=== PATIENT | female | born 1990 | race Caucasian/White ===

== ENCOUNTER 2016-06-04 21:32 | Emergency (ER) | payer OTHER ==
[~2016-06-04] VITALS: Ht 160 cm; Wt 64.5 kg
[~2016-06-04 21:32] MED LIST: ACET500C5 PO; CEPH-443 PO; HYDR-3011 PO; PREN-39 PO
[2016-06-04 22:02] VITALS: Ht 160 cm; Wt 64.5 kg
[2016-06-04 23:34] LABS: ADD SCAN DIFF NO
[2016-06-04 23:37] LABS: BASOPHILS % 0.1 % (0.0-2.0); EOSINOPHILS # 0.1 10^3/ul (0.0-0.5); EOSINOPHILS % 0.9 % (0.0-7.0); HEMOGLOBIN 11.9 g/dl (12.0-16.0); LYMPHOCYTES # 1.8 10^3/ul (0.8-2.9); LYMPHOCYTES % 24.6 % (15.0-51.0); MEAN CORPUSCULAR HEMOGLOBIN 27.3 pg (29.0-33.0); MEAN CORPUSCULAR HGB CONC 31.3 g/dl (32.0-37.0); MEAN CORPUSCULAR VOLUME 87.2 fl (82.0-101.0); MEAN PLATELET VOLUME 10.6 fl (7.4-10.4); MONOCYTE # 0.5 10^3/ul (0.3-0.9); MONOCYTES % 6.9 % (0.0-11.0); NEUTROPHILS % 67.2 % (39.0-77.0); PLATELET COUNT 208 10^3/UL (140-415); RED BLOOD COUNT 4.36 10^6/ul (4.20-5.40); RED CELL DISTRIBUTION WIDTH 13.8 % (11.5-14.5); WHITE BLOOD COUNT 7.4 10^3/ul (4.8-10.8)
--- NOTE | 2016-06-05 00:11 | RADRPT ---
PROCEDURE: US OB. CLINICAL INDICATION: Vaginal bleeding. TECHNIQUE: Transabdominal and transvaginal views of the pelvis are available for review. COMPARISON: No relevant prior studies are available for comparison. FINDINGS: Uterus: Normal in contour, echogenicity and size without myometrial mass. Endometrial cavity: An intrauterine gestational sac and yolk sac are demonstrated but there is no f etal pole. The gestational sac is estimated at 1.03 cm corresponding to an age of 5 weeks 5 days. Crescentic hypoechoic area adjacent to the gestational sac is measured at 1.3 x 0.9 x 0.6 cm on the transvaginal images consistent with a subchorionic hemorrhage. Right ovary/adnexa: Ovarian size is normal measured at 3.7 x 2.2 x 2 cm. No ovarian or adnexal mas s lesion is seen. Left ovary/adnexa: The ovary is not visualized. Cul-de-sac: There is no free fluid. RPTAT:HJJR IMPRESSION: 1. Intrauterine gestational sac and yolk sac at an estimated gestational age of 5 weeks 5 days. A s no pole is visible, follow-up evaluation with serial serum beta HCG levels and ultrasound is recommended. 2. Subchorionic hemorrhage is estimated at 1.3 x 0.9 x 0.6 cm. 3. Sonographically normal right ovary, the left ovary is not visualized. Physician Gopal Date Time Electronically viewed and signed by Physician Gopal on 06/05/2016 00:11 JR/
[2016-06-05 00:49] LABS: ADD UMIC NO; URINE BILIRUBIN (Dip) NEGATIVE (NEGATIVE); URINE BLOOD (Dip) NEGATIVE (NEGATIVE); URINE COLOR LT. YELLOW (YELLOW); URINE GLUCOSE (Dip) NEGATIVE (NEGATIVE); URINE KETONES (Dip) 15 (NEGATIVE); URINE LEUKOCYTE ESTERASE (Dip) NEGATIVE (NEGATIVE); URINE NITRITE (Dip) NEGATIVE (NEGATIVE); URINE TOTAL PROTEIN (Dip) NEGATIVE (NEGATIVE); URINE UROBILINOGEN (Dip) 1.0 E.U./dL (0.1-1.0)
[2016-06-05 01:05] VITALS: BP 107/64; PULSE 72; RESP 16; TEMP 98.8
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
== END 2016-06-05 01:05 | disposition home or self-care (01) ==
LOC: FTE 21:32
DX: O20.9 Hemorrhage in early pregnancy, unspecified (principal); O20.0 Threatened abortion; Z3A.01 Less than 8 weeks gestation of pregnancy
CPT/HCPCS: 76801; 76817; 81003; 84702; 85025; 86900; 86901; Z7502

== ENCOUNTER 2016-10-13 21:33 | Outpatient (CLI) | payer OTHER ==
[~2016-10-13] VITALS: Ht 154.9 cm; Wt 62.8 kg
[2016-10-13 22:04] VITALS: Ht 154.9 cm; Wt 62.8 kg
[2016-10-13 22:31] LABS: BASOPHILS % 0.2 % (0.0-2.0); EOSINOPHILS % 0.6 % (0.0-7.0); HEMATOCRIT 32.8 % (37.0-47.0); HEMOGLOBIN 10.8 g/dl (12.0-16.0); LYMPHOCYTES % 16.3 % (15.0-51.0); MEAN CORPUSCULAR HEMOGLOBIN 28.6 pg (29.0-33.0); MEAN CORPUSCULAR HGB CONC 32.9 g/dl (32.0-37.0); MEAN PLATELET VOLUME 10.6 fl (7.4-10.4); MONOCYTE # 0.4 10^3/ul (0.3-0.9); MONOCYTES % 5.5 % (0.0-11.0); NEUTROPHIL # 4.9 10^3/ul (1.6-7.5); NEUTROPHILS % 77.2 % (39.0-77.0); PLATELET COUNT 173 10^3/UL (140-415); RED BLOOD COUNT 3.77 10^6/ul (4.20-5.40); RED CELL DISTRIBUTION WIDTH 14.3 % (11.5-14.5); WHITE BLOOD COUNT 6.4 10^3/ul (4.8-10.8)
[2016-10-13] MEDS ORDERED: FERR325C PO (22:36)
[2016-10-13 22:37] LABS: ADD UMIC YES; UR ASCORBIC ACID 40 mg/dL (NEGATIVE); UR BILIRUBIN (Dip) NEGATIVE (NEGATIVE); UR BLOOD (Dip) 3+ mg/dL (NEGATIVE); UR CLARITY CLOUDY (CLEAR); UR COLOR YELLOW (YELLOW); UR GLUCOSE (Dip) NEGATIVE (NEGATIVE); UR KETONES (Dip) NEGATIVE (NEGATIVE); UR LEUKOCYTE ESTERASE (Dip) 3+ Leu/ul (NEGATIVE); UR MUCUS FEW /HPF (NONE SEEN); UR NITRITE (Dip) NEGATIVE (NEGATIVE); UR RBC > 182 /HPF (0-5); UR SPECIFIC GRAVITY (Dip) 1.021 (1.003-1.030); UR SQUAMOUS EPITHELIAL CELL MODERATE /HPF (FEW); UR TOTAL PROTEIN (Dip) NEGATIVE (NEGATIVE); UR UROBILINOGEN (Dip) NEGATIVE (NEGATIVE)
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
--- NOTE | 2016-10-14 00:02 | TRIAGE ---
OB Triage Datetime Report Generated by CPN: 10/14/2016 00:02 Datetime: 10/13/2016 23:19 Vaginal Exam Dilatation (cms): 0.0 Effacement (%): 0 Station: -4 Exam By: DR. ARDALAN Datetime: 10/13/2016 23:00 Pain Assessment Pain Assessment Comments: PT. APPEARS COMFORTABLE, SITTING IN BED ON CELLPHONE Datetime: 10/13/2016 22:42 Heart Rate Monitor Mode: External US Comments: MOVEMENT AUDIBLE Datetime: 10/13/2016 22:06 EGA: 24.3 Datetime: 10/13/2016 21:39 Assessment Type: Triage Time of Arrival: 10/13/2016 21:25 Arrived By: Wheelchair Arrived From: Home Chief Complaint: VAG BLEEDING POST BIOPSY FOR HPV Movement: Present Contractions: Denies/Absent Rupture of Membranes: Denies Vaginal Bleeding: Small Vaginal Discharge: Present Recent Sexual Intercouse: Denies Abdominal Trauma: Not Applicable Patient Complaints: Pain on Urination Time Provider Notified: 10/14/2016 23:05 Provider Notified: JACKSON Initial Plan: EFM, U/S, CALL OB Maternal Assessment Level of Consciousness: Fully Conscious Headache: Denies Blurred Vision: No Respiratory Effort: Unlabored; Regular Rhythm; Equal Expansion Nausea/Vomiting: Denies RUQ Epigastric Pain: Denies Facial Edema: None Fall Risk Assessment History of Falling: (0) No Secondary Diagnosis: (0) No Ambulatory Aid: (0) Bedrest/Nurse Assist IV Therapy: (0) No Gait: (0) Normal/Bedrest/Immobile Mental Status: (0) Oriented to Own Ability Fall Score: 0 Fall Risk Score Definition: No Risk: No action required
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
== END 2016-10-13 23:58 | disposition home or self-care (01) ==
LOC: OBT 21:33 → L-D 21:36 → OBT 23:58
PROVIDERS: ATTEND Obstetrics & Gynecology Obstetrics
DX: O26.892 Other specified pregnancy related conditions, second trimester (principal); Z3A.26 26 weeks gestation of pregnancy; R10.2 Pelvic and perineal pain; L29.9 Pruritus, unspecified; N89.8 Other specified noninflammatory disorders of vagina
CPT/HCPCS: 76815; 81001; 85025; 86850; 86900; 86901; 87086; Z7500; G0463

== ENCOUNTER 2016-11-08 21:54 | Outpatient (CLI) | payer OTHER ==
[~2016-11-08] VITALS: Ht 147.3 cm; Wt 64.5 kg
[~2016-11-08 21:54] MED LIST changes: -ACET500C5 PO; -CEPH-443 PO; +FERR325C PO; -HYDR-3011 PO
[2016-11-08 22:59] VITALS: BP 102/58; PULSE 76; RESP 16; Ht 147.3 cm; Wt 64.5 kg
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
--- NOTE | 2016-11-08 23:42 | RADRPT ---
PROCEDURE: US OB Limited for Estimated Weight. CLINICAL INDICATION: 26 years of age, female. Estimated weight . labor. TECHNIQUE: Multiple sonographic images of the pelvis were obtained. Transabdominal imaging only w as performed. The images were reviewed on a PACS workstation. Image quality: Satisfactory. COMPARISON: No prior studies are available for comparison. FINDINGS: Luciano : Number of fetuses: 1 GENERAL EVALUATION: Cardiac activity: Present. FHR 139 bpm Presentation: Cephalic. Placenta: Placenta site: Anterior.. No evidence of placental previa. Placental grade 1 Cervix (transabdominal): Not evaluated DATING: Clinical MIKE: 28 weeks 1 day EGA based on MIKE: January 30, 2017 BIOMETRY: BPD = 7.1 cm , 28 weeks 4 days HC = 25.7 cm , 28 weeks 0 days AC = 24 cm , 28 weeks 2 days FL = 5.2 cm , 27 weeks 5-day Composite sonographic age: 28 weeks 1 day plus or minus 2 weeks Estimated due date by ultrasound measurements: January 30, 2017 EFW 1172 grams, 35 percentile. ANATOMY: Not evaluated. IMPRESSION: 1. Single living fetus in cephalic presentation. 2. Clinical gestation age of 28 weeks 1 day and clinical MIKE January 30, 2017 are concordant with t he composite sonographic age that is also 28 weeks 1 day. 3. Estimated weight is 1172 grams that is at the 35 percentile for gestational age. 4. Anterior grade 1 placenta. RPTAT: HCTS Physician Geri Date Time Electronically viewed and signed by Physician Geri on 11/08/2016 23:42 CS/
--- NOTE | 2016-11-08 23:44 | RADRPT ---
PROCEDURE: OB ultrasound for biophysical profile CLINICAL INDICATION: of age, female. well being. labor. TECHNIQUE: Multiple sonographic images of the pelvis were obtained. Transabdominal view of the gr avid uterus are available for review. The images were reviewed on a PACS workstation. COMPARISON: None available. FINDINGS: breathing movement = 2/2 tone = 2/2 motion = 2/2 Amniotic fluid = 2/2 GILDA = 13 cm Single live intrauterine in cephalic presentation. heart rate measures 125 bpm. Anterior placenta, grade 1. IMPRESSION: 1. Single living fetus in cephalic presentation. 2. Biophysical profile = 8/8. 3. GILDA = 13 cm. 4. Anterior placenta grade 1. RPTAT: HCTS Physician Geri Date Time Electronically viewed and signed by Physician Geri on 11/08/2016 23:44 CS/
[2016-11-09 00:01] LABS: ADD UMIC YES; UR AMORPHOUS CRYSTAL FEW /HPF (NONE SEEN); UR ASCORBIC ACID NEGATIVE (NEGATIVE); UR BACTERIA FEW /HPF (NONE SEEN); UR BILIRUBIN (Dip) NEGATIVE (NEGATIVE); UR BLOOD (Dip) NEGATIVE (NEGATIVE); UR CLARITY SLIGHTLY CLOUDY (CLEAR); UR COLOR YELLOW (YELLOW); UR GLUCOSE (Dip) NEGATIVE (NEGATIVE); UR KETONES (Dip) NEGATIVE (NEGATIVE); UR LEUKOCYTE ESTERASE (Dip) 3+ Leu/ul (NEGATIVE); UR MUCUS MODERATE /HPF (NONE SEEN); UR NITRITE (Dip) NEGATIVE (NEGATIVE); UR RBC 5 /HPF (0-5); UR SPECIFIC GRAVITY (Dip) 1.025 (1.003-1.030); UR SQUAMOUS EPITHELIAL CELL FEW /HPF (FEW); UR TOTAL PROTEIN (Dip) 1+ mg/dl (NEGATIVE); UR UROBILINOGEN (Dip) 1+ mg/dL (NEGATIVE)
[2016-11-09] MEDS ORDERED: NITR-58 PO (00:39)
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
== END 2016-11-09 00:45 | disposition home or self-care (01) ==
LOC: OBT 21:54 → L-D 21:54 → OBT 11-09 00:45
PROVIDERS: ATTEND Obstetrics & Gynecology Gynecology
DX: O9A.212 Injury, poisoning and certain other consequences of external causes complicating pregnancy, second trimester (principal); T14.90 Injury, unspecified; W50.0XXA Accidental hit or strike by another person, initial encounter; Y92.410 Unspecified street and highway as the place of occurrence of the external cause; O47.02 False labor before 37 completed weeks of gestation, second trimester; Z3A.28 28 weeks gestation of pregnancy
CPT/HCPCS: 76815; 76818; 81001; Z7500; G0463

== ENCOUNTER 2017-01-23 06:05 | Outpatient (CLI) | payer OTHER ==
[~2017-01-23] VITALS: Ht 144.8 cm; Wt 66.8 kg
[~2017-01-23 06:05] MED LIST changes: +NITR-58 PO
[2017-01-23 06:59] VITALS: Ht 144.8 cm; Wt 66.8 kg
[2017-01-23 07:02] VITALS: BP 106/59; PULSE 88; RESP 18
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
== END 2017-01-23 12:00 | disposition home or self-care (01) ==
LOC: OBT 06:05 → L-D 06:06 → OBT 12:00
PROVIDERS: ATTEND Obstetrics & Gynecology
DX: O9A.213 Injury, poisoning and certain other consequences of external causes complicating pregnancy, third trimester (principal); S39.91XA Unspecified injury of abdomen, initial encounter; Y09 Assault by unspecified means; Z3A.39 39 weeks gestation of pregnancy
CPT/HCPCS: 76815; 76818; Z7500; G0463

== ENCOUNTER 2017-02-04 08:40 | Inpatient (IN) | payer OTHER ==
[~2017-02-04] VITALS: Ht 154.9 cm; Wt 66.9 kg
[2017-02-04 09:29] VITALS: Ht 154.9 cm; Wt 66.9 kg
[2017-02-04] MEDS ORDERED: OXYTOCIN 30 UNITS/LR 500 ML IV SCH ×3 (09:30→19:51)
[2017-02-04] MEDS ORDERED: OXYTOCIN 30 UNITS/LR 500 ML IV PRN ×2 (09:30→20:00)
[2017-02-04] MEDS ORDERED: METHYLERGONOVINE 0.2 MG INJ IM PRN ×2 (09:30→20:00)
[2017-02-04] MEDS ORDERED: AMPICILLIN 2 GM/NS (PMX) 100 ML IV ONE (09:30)
[2017-02-04] MEDS ORDERED: LIDOCAINE 1% (MPF) 30 ML INJ INJ PRN (09:30)
[2017-02-04] MEDS ORDERED: MISOPROSTOL 200 MCG TAB PR PRN ×2 (09:30→20:00)
[2017-02-04] MEDS ORDERED: BUTORPHANOL 2 MG INJ IV PRN (09:30)
[2017-02-04] MEDS ORDERED: IBUPROFEN 600 MG TAB PO PRN (09:30)
[2017-02-04] MEDS ORDERED: CARBOPROST 250 MCG INJ IM PRN ×2 (09:30→20:00)
[2017-02-04] MEDS: LACTATED RINGER'S 1,000 ML IV SCH ×2 (10:14→13:40)
[2017-02-04 10:16] VITALS: BP 106/59; PULSE 88; RESP 20
[2017-02-04 10:31] LABS: BASOPHILS % 0.1 % (0.0-2.0); EOSINOPHILS # 0.1 10^3/ul (0.0-0.5); EOSINOPHILS % 0.7 % (0.0-7.0); HEMATOCRIT 36.9 % (37.0-47.0); HEMOGLOBIN 12.3 g/dl (12.0-16.0); LYMPHOCYTES # 1.7 10^3/ul (0.8-2.9); LYMPHOCYTES % 18.8 % (15.0-51.0); MEAN CORPUSCULAR HEMOGLOBIN 28.3 pg (29.0-33.0); MEAN CORPUSCULAR HGB CONC 33.3 g/dl (32.0-37.0); MEAN CORPUSCULAR VOLUME 84.8 fl (82.0-101.0); MONOCYTE # 0.5 10^3/ul (0.3-0.9); MONOCYTES % 5.1 % (0.0-11.0); NEUTROPHIL # 6.7 10^3/ul (1.6-7.5); NEUTROPHILS % 75.1 % (39.0-77.0); PLATELET COUNT 195 10^3/UL (140-415); RED BLOOD COUNT 4.35 10^6/ul (4.20-5.40); RED CELL DISTRIBUTION WIDTH 14.4 % (11.5-14.5); WHITE BLOOD COUNT 8.9 10^3/ul (4.8-10.8)
[2017-02-04 10:50] LABS: INR 0.98; PROTIME 13.1 Sec (11.9-14.9)
[2017-02-04 10:51] LABS: PARTIAL THROMBOPLASTIN TIME 30.3 Sec (25.0-35.0)
[2017-02-04] MEDS: AMPICILLIN 1 GM/NS (PMX) 50 ML IV SCH ×2 (13:39→17:29)
[2017-02-04 14:53] LABS: BARBITURATES Negative (NEGATIVE); BENZODIAZEPINES Negative (NEGATIVE); CANNABINOIDS Negative (NEGATIVE); COCAINE Negative (NEGATIVE); OPIATES Negative (NEGATIVE)
--- NOTE | 2017-02-04 15:43 | RADRPT ---
PROCEDURE: US OB. CLINICAL INDICATION: Prostate TECHNIQUE: Multiple sonographic images of the pelvis were obtained. The images were reviewed on a PACS workstation. COMPARISON: 01/23/2017 FINDINGS: There is a single viable intrauterine gestation. Cardiac activity is present with 148 beats per min [place]. There is a cephalic presentation. Measurements were made in order to determine age. The results are as follows: BPD =9.34 cm HC =33.65 cm AC =46.23 cm FL =7.45 cm. Estimated gestational age of approximately 30 weeks 5 days. The estimated date of delivery is 02/13/2017. The EFW = 3000 733 g 49.3% . The placenta is anterior grade II. There is no evidence for an abruption There is a normal amount of amniotic fluid IMPRESSION: Single viable intrauterine gestation of approximately 38 weeks 5 days. The estimated date of delive ry is 02/13/2017 Based on the LMP, the estimated gestation is 40 weeks 5 days with a estimated date of delivery of . .Cuong Jean MD, Date Time Electronically viewed and signed by .Cuong Jean MD, on 02/04/2017 15:43 .W/
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
--- NOTE | 2017-02-04 16:50 | HP ---
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 Rubella: immune RPR/VDRL: Negative GBS Status: Negative HBsAG: Negative OB Admission Exam Vital Signs Vital Signs Vital Signs Date Time Temp Pulse Resp B/P Pulse Ox O2 Delivery O2 Flow Rate FiO2 02/04/17 10:16 98.3 88 20 106/59 Room Air Physical Exam HEENT: WNL Heart: Rhythm Normal Lungs: Clear, Equal Abdomen: WNL Extremities: Normal Reflexes: Normal Cervical Dilatation: 4cm Effacement: 50% Station: +2 Membranes: Intact Heart Rate: 130's Accelerations: Accelerations Present Decelerations: No Decelerations Intensity: Moderate Last 72 hours Lab Results CBC & BMP 02/04/17 10:07 OB Assessment/Plan Reason for admission: other (40 weeks 5 days admitted in in labor) Other plan: 26 years old SAB 1 EDC January 30, 2017 admitted to [facility] at 40 weeks and 5 days in labor pelvic examination on admission cervix 4 cm dilated vertex at -2 station 50 or 60% cervical effacement contraction 5-7 minutes may require augmentation VANIA REBOLLAR MD Feb 04, 2017 16:50
[2017-02-04] MEDS ORDERED: LACTATED RINGER'S 1,000 ML IV* SCH (19:51)
--- NOTE | 2017-02-04 19:51 | LDN ---
Date/Time of Note Date/Time of Note DATE: 02/04/17 TIME: 19:50 Delivery Summary Placenta Delivered: Spontaneously Episiotomy: No Perineal laceration: 0 Anesthesia type: None Estimated blood loss: 200 Sponge & Needle done & correct: Yes All needle counts correct: Yes Any foreign bodies felt in the: No Problems: Delivery Information Sex Sex: male Apgars 1 Minute: 9 5 Minute: 9 Suctioning Nose & mouth suctioned at tl: Yes Umbilical Cord Umbilical cord with: 3 Vessels Cord presentations: no nuchal cord Cord Blood was obtained: Yes Mother & Baby Disposition Disposition Mom & Baby to Maternity; Good: Yes AMARIILS OLMSTEAD Feb 04, 2017 19:51
[2017-02-04] MEDS ORDERED: HYDROCODONE/APAP (5/325) TAB PO PRN ×2 (20:00)
[2017-02-04] MEDS ORDERED: DIBUCAINE 1% 30 GM OINT PR PRN (20:00)
[2017-02-04] MEDS ORDERED: BENZOCAINE 20% 56 ML SPRAY TOP PRN (20:00)
[2017-02-04] MEDS ORDERED: LANOLIN 7 GM TUBE TOP PRN (20:00)
[2017-02-04] MEDS ORDERED: WITCH HAZEL/GLYCERIN PAD PR PRN (20:00)
[2017-02-04 22:20] VITALS: BP 98/56; PULSE 63; RESP 18
[2017-02-05 00:15] VITALS: BP 104/56; PULSE 67; RESP 18
[2017-02-05] MEDS: IBUPROFEN 600 MG TAB PO SCH ×5 (00:26→23:53)
[2017-02-05 04:15] VITALS: BP 96/65; PULSE 54; RESP 18
[2017-02-05 07:45] VITALS: BP 109/70; PULSE 66; RESP 19
[2017-02-05 09:10] LABS: BASOPHILS % 0.1 % (0.0-2.0); EOSINOPHILS % 0.3 % (0.0-7.0); HEMATOCRIT 33.4 % (37.0-47.0); LYMPHOCYTES # 1.7 10^3/ul (0.8-2.9); LYMPHOCYTES % 13.8 % (15.0-51.0); MEAN CORPUSCULAR HGB CONC 32.9 g/dl (32.0-37.0); MEAN PLATELET VOLUME 11.1 fl (7.4-10.4); MONOCYTE # 0.6 10^3/ul (0.3-0.9); MONOCYTES % 4.7 % (0.0-11.0); NEUTROPHIL # 10.1 10^3/ul (1.6-7.5); NEUTROPHILS % 80.8 % (39.0-77.0); PLATELET COUNT 173 10^3/UL (140-415); RED BLOOD COUNT 3.93 10^6/ul (4.20-5.40); RED CELL DISTRIBUTION WIDTH 14.2 % (11.5-14.5); WHITE BLOOD COUNT 12.5 10^3/ul (4.8-10.8)
--- NOTE | 2017-02-05 10:49 | QN ---
Documentation Comment Post normal vaginal delivery day 1 Afebrile vital signs are stable Abdomen soft uterus firm lochia normal extremities normal VANIA REBOLLAR MD Feb 05, 2017 10:49
[2017-02-05 12:00] VITALS: BP 94/51; PULSE 75; RESP 18
[2017-02-05 16:00] VITALS: BP 99/53; PULSE 69; RESP 16
[2017-02-05 19:45] VITALS: BP 108/60; PULSE 65; RESP 18
[2017-02-06 04:02] VITALS: BP 109/72; PULSE 76; RESP 18
[2017-02-06] MEDS: IBUPROFEN 600 MG TAB PO SCH ×2 (05:52→12:28)
[2017-02-06 08:00] VITALS: BP 106/74; PULSE 57; RESP 16
[2017-02-06] MEDS ORDERED: MEASLES,MUMPS,RUBELLA VACCINE INJ SC* ONE (09:00)
[2017-02-06] MEDS ORDERED: DIPHTH/TET/ACEL PERTUSS (ADULT) 0.5 ML VIAL IM* ONE (09:00)
[2017-02-06] MEDS ORDERED: VARICELLA VACCINE LIVE/PF 1,350 UNIT/0.5 ML ML SC* ONE (09:00)
--- NOTE | 2017-02-06 12:45 | PD.PPDC ---
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 Provider Information Physician Information Post normal vaginal delivery day 2 Diagnosis Final Diagnosis: day 2 Condition Patient Condition: Good Diet Diet: Resume Regular Diet Activity/Restrictions Activity: Normal Activity May Shower Restrictions: No Exercising No Lifting No Driving No Sexual Activity Nothing in the Vagina No [place] No Tampons, douche Follow-up Follow-up with Physician: 2, Week/Weeks Provider Information: instruction given recommended to make appointment to be seen at the clinic in 2 weeks Return to clinic for SHOWER MAID Instructions: Fever greater than 101 Chills Worsening abdominal pain Excessive Vaginal Bleeding More than 2 pads per hour Unable to tolerate diet Surgical Instructions: Incisional Drainage Incisional Redness VANIA REBOLLAR MD Feb 06, 2017 12:45
--- NOTE | 2017-02-06 12:50 | DS ---
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 Time spent on discharge: < 30 minutes VANIA REBOLLAR MD Feb 06, 2017 12:50
== END 2017-02-06 14:30 | disposition home or self-care (01) | DRG 775 ==
LOC: OBT 08:40 → L-D 08:41 → OBT 09:40 → L-D 09:41 → PP1 22:14
PROVIDERS: ADMIT Obstetrics & Gynecology; ATTEND Obstetrics & Gynecology
PROC: 10E0XZZ Delivery of Products of Conception, External Approach (ICD-10-PCS; principal; 2017-02-04)
DX: O48.0 Post-term pregnancy (principal); Z37.0 Single live birth; Z3A.40 40 weeks gestation of pregnancy
CPT/HCPCS: 76815; 80307; 85025; 85610; 85730; 86592; 86900; 86901; 87340; 90715; 90716; J0290; J0595; J2590; J7120

== ENCOUNTER 2018-07-14 19:38 | Emergency (ER) | payer OTHER ==
[~2018-07-14] VITALS: Ht 160 cm; Wt 73.0 kg
[~2018-07-14 19:38] MED LIST changes: -NITR-58 PO
[2018-07-14 20:23] VITALS: Ht 160 cm; Wt 73.0 kg
[2018-07-14] MEDS ORDERED: MAGNESIUM CITRATE 300 ML BTL PO ONE (21:00)
[2018-07-14] MEDS ORDERED: SOD CHLORIDE 0.9% 1,000 ML IV STA (21:00)
[2018-07-14] MEDS ORDERED: KETOROLAC 15 MG INJ IV STA (21:00)
[2018-07-14] MEDS ORDERED: DOCU-144 PO (22:26)
[2018-07-14] MEDS ORDERED: NAPR-985 PO (22:26)
[2018-07-14] MEDS ORDERED: CEPH-443 PO (22:26)
[2018-07-14 23:03] VITALS: BP 106/59; PULSE 72; RESP 16
--- NOTE | 2018-07-15 01:50 | ERD ---
ER Documentation Chief Complaint Chief Complaint painful urination started last night; back/flank pain HPI This patient is a 27-year-old female brought in by her mother who is assisting with translation in Romanian sign language complaining of right flank pain, urinary retention, and constipation intermittently for the past 2 days. Flank pain is currently rated 8/10 in severity and constant. Patient's last menstrual cycle was approximately 4 days ago. Patient denies any nausea, vomiting, diarrhea, fevers, chills, or other symptoms at this time. ROS All systems reviewed and are negative except as per history of present illness. Medications Home Meds Active Scripts Docusate Sodium* (Colace*) 100 Mg Capsule, 100 MG PO TID, #30 CAP Prov:VALENTINO SAWANT PA-C 07/14/18 Naproxen* (Naprosyn*) 500 Mg Tablet, 500 MG PO BID PRN for PAIN AND/OR INFL AMMATION, #30 TAB Prov:VALENTINO SAWANT PA-C 07/14/18 Cephalexin* (Keflex*) 500 Mg Capsule, 500 MG PO TID for 7 Days, CAP Prov:VALENTINO SAWANT PA-C 07/14/18 Reported Medications Ferrous Sulfate (Iron) 325 Mg Capsule.er, 325 MG PO, CAP 10/13/16 Vits W-Ca,Fe,Fa(<1MG) ( Vitamins) 1 Tab Tablet, 1 TAB PO DAILY 11/05/14 Allergies Allergies: Coded Allergies: No Known Allergy (Unverified , 01/23/17) PMhx/Soc History of Surgery: No Anesthesia Reaction: No Hx Neurological Disorder: No Hx Respiratory Disorders: No Hx Cardiac Disorders: No Hx Psychiatric Problems: No Hx Miscellaneous Medical Probl: Yes (Deaf-Mute) Hx Alcohol Use: No Hx Substance Use: No Hx Tobacco Use: No Smoking Status: Never smoker FmHx Family History: No diabetes Physical Exam Vitals Vital Signs Date Temp Pulse Resp B/P (MAP) Pulse Ox O2 O2 Flow FiO2 Time Delivery Rate 07/14/18 72 16 106/59 100 Room Air 23:03 (75) 07/14/18 99.1 83 18 122/61 97 20:23 (81) Physical Exam Const: No acute distress Head: Atraumatic Eyes: Normal Conjunctiva ENT: Normal External Ears, Nose and Mouth. Neck: Full range of motion. No meningismus. Resp: Clear to auscultation bilaterally Cardio: Regular rate and rhythm, no murmurs Abd: Soft, tenderness palpation of the right lower quadrant, no rebound tenderness or guarding, non distended. Normal bowel sounds Skin: No petechiae or rashes Back: No midline tenderness. Right flank tenderness on palpation. Right- sided CVA tenderness. Ext: No cyanosis, or edema Neur: Awake and alert Psych: Normal Mood and Affect Result Diagram: 07/14/18211507/14/182115 Results 24 hrs Laboratory Tests Test 07/14/18 21:16 White Blood Count 5.9 10^3/ul Red Blood Count 4.59 10^6/ul Hemoglobin 12.7 g/dl Hematocrit 39.9 % Mean Corpuscular Volume 86.9 fl Mean Corpuscular Hemoglobin 27.7 pg Mean Corpuscular Hemoglobin Concent 31.8 g/dl Red Cell Distribution Width 13.5 % Platelet Count 214 10^3/UL Mean Platelet Volume 10.4 fl Immature Granulocytes % 0.300 % Neutrophils % 61.2 % Lymphocytes % 28.0 % Monocytes % 8.4 % Eosinophils % 1.9 % Basophils % 0.2 % Nucleated Red Blood Cells % 0.0 /100WBC Immature Granulocytes # 0.020 10^3/ul Neutrophils # 3.6 10^3/ul Lymphocytes # 1.6 10^3/ul Monocytes # 0.5 10^3/ul Eosinophils # 0.1 10^3/ul Basophils # 0.0 10^3/ul Nucleated Red Blood Cells # 0.0 10^3/ul Prothrombin Time 13.2 Sec Prothrombin Time Ratio 1.0 INR International Normalized Ratio 0.99 Activated Partial Thromboplast Time 28.3 Sec Urine Color YELLOW Urine Clarity SLIGHTLY CLOUDY Urine pH 6.[address] 1.017 Urine Ketones NEGATIVE mg/dL Urine Nitrite NEGATIVE mg/dL Urine Bilirubin NEGATIVE mg/dL Urine Urobilinogen NEGATIVE mg/dL Urine Leukocyte Esterase 1+ Callie/ul Urine Microscopic RBC 26 /HPF Urine Microscopic WBC 17 /HPF Urine Squamous Epithelial Cells FEW /HPF Urine Bacteria FEW /HPF Urine Mucus MODERATE /HPF Urine Hemoglobin 2+ mg/dL Urine Glucose NEGATIVE mg/dL Urine Total Protein NEGATIVE mg/dl Sodium Level 144 mmol/L Potassium Level 4.0 mmol/L Chloride Level 106 mmol/L Carbon Dioxide Level 29 mmol/L Anion Gap 9 Blood Urea Nitrogen 14 mg/dl Creatinine 0.71 mg/dl Est Glomerular Filtrat Rate mL/min > 60 mL/min Glucose Level 105 mg/dl Calcium Level 9.1 mg/dl Total Bilirubin 0.6 mg/dl Direct Bilirubin 0.00 mg/dl Indirect Bilirubin 0.6 mg/dl Aspartate Amino Transf (AST/SGOT) 28 IU/L Alanine Aminotransferase (ALT/SGPT) 24 IU/L Alkaline Phosphatase 100 IU/L Total Protein 8.2 g/dl Albumin 4.5 g/dl Globulin 3.70 g/dl Albumin/Globulin Ratio 1.21 Lipase 116 U/L POC Beta HCG, Qualitative NEGATIVE Current Medications Medications Dose Sig/Garcia Start Time Status Last (Trade) Ordered Route PRN Stop Time Admin Dose Reason Admin Sodium 1,000 ml @ Q1H STAT 07/14/18 DC 07/14/18 Chloride 1,000 mls/hr IV 21:00 21:43 07/14/18 21:59 Ketorolac 15 mg ONCE STAT 07/14/18 DC 07/14/18 Tromethamine IV 21:00 21:40 (Toradol) 07/14/18 21:02 Magnesium 300 ml ONCE ONCE 07/14/18 DC 07/14/18 Citrate PO 21:00 21:40 (Citroma) 07/14/18 21:02 [place] [address] Radiology Main Line: [phone] DIAGNOSTIC IMAGING REPORT Patient: TANYA KHAN : 1990 Age: 27 Sex: F [id number] DOS: 07/14/18 2100 Ordering MD: VALENTINO SAWANT PA-C Location: [facility] Room/Bed: PROCEDURE: CT Abdomen and Pelvis without contrast. CLINICAL INDICATION: Abdominal pain. TECHNIQUE: CT scan of the abdomen and pelvis was performed on a multi-detector high-resolution CT scanner. The patient was scanned without contrast administration. Coronal and sagittal reformatted images were obtained from the axial source images. Images were reviewed on a high-resolution PACS workstation. The total exam CTDI equals number mGy and the total exam DLP equals number mGy- cm. DICOM images are available. 3-D reconstructions were not performed. One or more of the following dose reduction techniques were utilized: 1.) Automated exposure control 2.) Adjustment of the mA +/- kV according to patient's size 3.) Use of iterative reconstruction technique. COMPARISON: None. FINDINGS: CT abdomen: Heart (where visible): Unremarkable. Lung bases: No evidence of pneumonia, mass, pleural effusion. Liver: Enlarged measuring 19.4 cm in length. No visible focal mass. Biliary ductal system: No evidence of significant dilatation. Gallbladder: No wall thickening, visible intraluminal stone, or pericholecystic inflammatory change. Pancreas: Unremarkable. Stomach: No identifiable focal mass or gross wall thickening. Spleen: Mildly enlarged. Abdominal colon: Normal in caliber and course. Abdominal small bowel: Normal in caliber, course, and mucosal pattern. Adrenal glands: No visible masses. Right Kidney: Normal in size and contour without focal mass or collecting system dilatation. No visible calcifications. Left kidney: Normal in size and contour without focal mass or collecting system dilatation. No visible calcifications. Abdominal aorta: Normal caliber. Lymph nodes: No significantly enlarged nodes. CT pelvis: Pelvic colon: Normal in caliber and course. No evidence of inflammatory change. Pelvic small bowel: Normal in caliber and course. Appendix: Identified. No evidence of inflammation. Urinary bladder: Distended. Reproductive structures: The uterus is grossly normal in size. There are no adnexal masses. There is no free fluid in the pelvis. Bony structures included in the scan: No clinically significant abnormalities. IMPRESSION: 1. Mild hepatosplenomegaly. 2. Moderate distension of the urinary bladder. 3. Otherwise unremarkable CT of the abdomen and pelvis with no evidence of bowel obstruction, bowel perforation, urinary tract stone, urinary tract obstruction, or focal inflammatory process. RPTAT:AAJJ Physician Dada Date Time Electronically viewed and signed by Physician Dada on 07/14/2018 21:59 GW/ CC: VALENTINO SAWANT PA-C [phone] Procedures/MDM 27-year-old female presenting to the emergency department complaining of right flank and right lower quadrant pain. Based off of history and physical examination, work-up was obtained. CBC: no e/o of systemic infection or severe anemia CMP: no e/o severe acidosis, alkalosis, renal failure, diabetic k etoacidosis, liver disease Lipase: no e/o pancreatitis PT/INR: normal coagulation Urine: Consistent with urinary tract infection. Patient's gastrointestinal/ symptoms have stabilized while in the department. Patient stable and appropriate for discharge and further outpatient management. She will be given prescriptions for Keflex and naproxen. No evidence of severe dehydration, sepsis, or surgical abdomen. Extensive discussion with family and patient that occult disease cannot be ruled out. 8 hour recheck for repeat abdominal exam is planned. No evidence of life-threatening pathology at time of discharge. Pt/family in agreement with discharge plan/diagnosis. Pt/family advised to return immediately with any new or worsening symptoms. Follow-up with primary care physician within the next 1-2 days. Departure Diagnosis: Primary Impression: UTI (urinary tract infection) Urinary tract infection type: acute cystitis Hematuria presence: with hematuria Qualified Codes: N30.01 - Acute cystitis with hematuria Condition: Fair Patient Instructions: Understanding Urinary Tract Infections (UTIs) Additional Instructions: Llame al doctor MAANA y casimiro nely MALGORZATA PARA DENTRO DE 1-2 KENT.Dgale a la secretaria que nosotros le instruimos hacer esta malgorzata.Avise o llame si pop condicin se empeora antes de la malgorzata. Regresa aqui si peor o no mejor. VALENTINO SAWANT PA-C July 15, 2018 01:50
== END 2018-07-14 23:06 | disposition home or self-care (01) ==
LOC: FTE 19:38
DX: N30.01 Acute cystitis with hematuria (principal)
CPT/HCPCS: 36415; 74176; 80053; 81001; 81025; 83690; 85025; 85610; 85730; 96361; 96374; J1885; J7030; Z7502; Z7610

== ENCOUNTER 2018-08-11 18:50 | Inpatient (IN) | payer OTHER ==
[~2018-08-11] VITALS: Ht 152.4 cm; Wt 80.0 kg
[~2018-08-11 18:50] MED LIST changes: +CEPH-443 PO; +DOCU-144 PO; +NAPR-985 PO
[2018-08-11] MEDS ORDERED: INSULIN REGULAR, HUMAN 100 UNIT/1 ML 3ML VIAL IVP STA (20:12)
[2018-08-11] MEDS ORDERED: SODIUM POLYSTYRENE 15 GM KIT (POWDER + SORBITOL) PO STA (20:12)
[2018-08-11] MEDS ORDERED: NA BICARBONATE 8.4% 50 ML SYG IV STA (20:12)
[2018-08-11] MEDS ORDERED: CA CHLORIDE 10% 10 ML SYRINGE IV STA (20:12)
[2018-08-11] MEDS ORDERED: DEXTROSE 50% 50 ML SYRINGE IV ONE (20:30)
[2018-08-11] MEDS ORDERED: DEXTROSE 50% 50 ML SYRINGE IV PRN (20:30)
--- NOTE | 2018-08-11 21:42 | ERD ---
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 Patient has subsequently developed worsening shortness of breath over the past 24 hours. No cough or fever. Patient has some mild edema in her legs. She states that she still making urine. She has had a history of hypertension apparently this untreated ROS All systems reviewed and are negative except as per history of present illness. Medications Home Meds Active Scripts Docusate Sodium* (Colace*) 100 Mg Capsule, 100 MG PO TID, #30 CAP Prov:VALENTINO SAWANT PA-C 07/14/18 Naproxen* (Naprosyn*) 500 Mg Tablet, 500 MG PO BID PRN for PAIN AND/OR INFLAMMATION, #30 TAB Prov:VALENTINO SAWANT PA-C 07/14/18 Cephalexin* (Keflex*) 500 Mg Capsule, 500 MG PO TID for 7 Days, CAP Prov:VALENTINO SAWANT PA-C 07/14/18 Reported Medications Ferrous Sulfate (Iron) 325 Mg Capsule.er, 325 MG PO, CAP 10/13/16 Vits W-Ca,Fe,Fa(<1MG) ( Vitamins) 1 Tab Tablet, 1 TAB PO DAILY 11/05/14 Allergies Allergies: Coded Allergies: No Known Allergy (Unverified , 01/23/17) PMhx/Soc History of Surgery: No Anesthesia Reaction: No Hx Neurological Disorder: No Hx Respiratory Disorders: No Hx Cardiac Disorders: No Hx Psychiatric Problems: No Hx Miscellaneous Medical Probl: Yes (Deaf-Mute) Hx Alcohol Use: No Hx Substance Use: No Hx Tobacco Use: No FmHx Family History: No coronary disease Physical Exam Vitals Vital Signs Date Temp Pulse Resp B/P (MAP) Pulse Ox O2 O2 Flow FiO2 Time Delivery Rate 08/11/18 136 45 96 Nasal 100 19:57 Cannula 08/11/18 96 100 19:56 08/11/18 Vapotherm 30 19:54 08/11/18 Non 10.0 19:53 Rebreather 08/11/18 99.9 132 26 174/112 83 18:58 (132) Physical Exam Const: Well-developed, well-nourished Head: Atraumatic, normocephalic Eyes: Normal Conjunctiva, PERRLA, EOMI, normal sclera, no nystagmus ENT: Normal External Ears, Nose and Mouth, moist mucus membranes. Neck: Full range of motion. No meningismus, no lymphadenopathy. Resp: There is increased work of breathing with diffuse rhonchi Cardio: Tachycardia, no murmurs, S1 S2 present] Abd: Soft, non tender x 4, non distended. Normal bowel sounds, no guarding or rebound, no pulsitile abdominal masses or bruits Skin: No petechiae or rashes, no ecchymosis , no maculopapular rash Back: No midline or flank tenderness Ext: No cyanosis, or edema, FROM x 4, normal inspection, neurovascularly intact x 4 Neur: Awake and alert, STR 5/5 x 4, sensation intact x 4, no focal findings, cerebellum intact Psych: Normal Mood and Affect Result Diagram: 08/11/18192908/11/181929 Results 24 hrs Laboratory Tests Test 08/11/18 19:30 08/11/18 20:31 08/11/18 20:44 08/11/18 20:59 White Blood Count 9.2 10^3/ul Red Blood Count 3.79 10^6/ul Hemoglobin 10.2 g/dl Hematocrit 31.7 % Mean Corpuscular 83.6 fl Volume Mean Corpuscular 26.9 pg Hemoglobin Mean Corpuscular 32.2 g/dl Hemoglobin Concen t Red Cell 13.4 % Distribution Width Platelet Count 207 10^3/UL Mean Platelet 9.7 fl Volume Immature 0.200 % Granulocytes % Neutrophils % 87.8 % Lymphocytes % 6.8 % Monocytes % 5.1 % Eosinophils % 0.0 % Basophils % 0.1 % Nucleated Red 0.0 /100WBC Blood Cells % Immature 0.020 10^3/ul Granulocytes # Neutrophils # 8.1 10^3/ul Lymphocytes # 0.6 10^3/ul Monocytes # 0.5 10^3/ul Eosinophils # 0.0 10^3/ul Basophils # 0.0 10^3/ul Nucleated Red 0.0 10^3/ul Blood Cells # Prothrombin Time 16.8 Sec Prothrombin Time 1.3 Ratio INR International 1.35 Normalized Ratio Activated 31.6 Sec Partial Thrombopl ast Time Sodium Level 139 mmol/L Potassium Level 6.5 mmol/L Chloride Level 107 mmol/L Carbon Dioxide 9 mmol/L Level Anion Gap 23 Blood Urea 109 mg/dl Nitrogen Creatinine 20.18 mg/dl Est Glomerular 2 mL/min Filtrat Rate mL/min Glucose Level 114 mg/dl Calcium Level 8.8 mg/dl Total Bilirubin 0.2 mg/dl Direct Bilirubin 0.00 mg/dl Indirect 0.2 mg/dl Bilirubin Aspartate Amino 11 IU/L Transf (AST/SGOT) Alanine 14 IU/L Aminotransferase (ALT/SGPT) Alkaline 91 IU/L Phosphatase Troponin I 0.021 ng/ml B-Type 5160 PG/ML Natriuretic Peptide Total Protein 7.4 g/dl Albumin 3.7 g/dl Globulin 3.70 g/dl Albumin/Globulin 1.00 Ratio Bedside Glucose 133 mg/dL 234 mg/dL Blood Gas Blood arterial Specimen Source Arterial Blood 08/11/2018 9:10:51 Date Drawn PM Arterial Blood pH 7.312 (Temp corrected) Arterial Blood 23.3 mmhg pCO2 (Temp correct) Arterial Blood 77.8 mmHG pO2 (Temp corrected) Arterial Blood 11.5 mmol/L HCO3 Arterial Blood -13.1 mmol/L Base Excess Arterial Blood 94.0 mmHG Oxygen Saturation Pino Test ACCEPTAB Arterial Blood Left Radial Gas Puncture Site Arterial 0.3 % Blood Carboxyhemo globin Arterial Blood 0.3 % Methemoglobin Blood Gas A-a O2 611.9 mmHg Differential Oxyhemoglobin 93.4 % Percent Blood Gas 37.0 C Temperature Blood Gas Actual 35 Respiration Rate Blood Gas HFNC Modality FiO2 100.0 % Blood Gas Chela [facility] Notified Whom Blood Gas 08/11/2018 9:20:28 Notified Time PM Current Medications Medications Dose Sig/Garcia Start Time Status Last (Trade) Ordered Route PRN Stop Time Admin Dose Reason Admin Sodium 30 gm ONCE STAT 08/11/18 DC 08/11/18 Polystyrene PO 20:12 08/11/18 21:16 Sulfonate 20:22 (Kayexelate 15 Gm Kit (Powder+Sorbi benji)) Sodium 50 ml ONCE STAT 08/11/18 DC 08/11/18 Bicarbonate IV 20:12 08/11/18 20:40 (Na Bicarb 20:22 8.4% Syg) Calcium 1,000 mg ONCE STAT 08/11/18 DC 08/11/18 Chloride IV 20:12 08/11/18 20:57 (Ca Chloride 20:21 10% Syg) Insulin 10 unit ONCE STAT 08/11/18 DC 08/11/18 Human IVP 20:12 08/11/18 20:39 Regular 20:22 (Humulin R) Dextrose 50 ml ONCE ONCE 08/11/18 DC 08/11/18 (D50w IV 20:30 08/11/18 20:35 Syringe) 20:31 Dextrose ONCE PRN 08/11/18 (D50w IV DECREASED 20:30 08/12/18 Syringe) GLUCOSE 20:29 Procedures/[place] [address] Radiology Main Line: [phone] DIAGNOSTIC IMAGING REPORT Patient: TANYA KHAN : 1990 Age: 27 Sex: F MR #: [id number] DOS: 08/11/181915 Ordering MD: BRIAN KOO DO Location: E/R Room/Bed: PROCEDURE: XR Chest, 1 View CLINICAL INDICATION: Chest pain. TECHNIQUE: Frontal view of the chest. COMPARISON: None FINDINGS: LUNGS: Diffuse bilateral pulmonary infiltrates, consistent with pulmonary edema versus bilateral pneumonia. PLEURAL SPACE: Unremarkable. No pneumothorax. HEART: Mild cardiomegaly is noted. MEDIASTINUM: Unremarkable. BONES/JOINTS: Unremarkable. IMPRESSION: 1. Mild cardiomegaly is noted. 2. Diffuse bilateral pulmonary infiltrates, consistent with pulmonary edema versus bilateral pneumonia. RPTAT: [facility] [address] Haseeb Trotter Physician Acute Care Physical Therapist Date Time Electronically viewed and signed by Haseeb Trotter Physician Acute Care Physical Therapist on 08/11/2018 21:10 C/ CC: BRIAN KOO DO [phone] EKG: Rate/Rhythm: Sinus tachycardia QRS, ST, QT: NORMAL OR, QRS, QT] Impression: NORMAL EKG Patient is not wanting to wear a nonrebreather so we tried some BiPAP which did not work. Then we changed over to high flow oxygen which she was tolerating. Her oxygen saturation on arrival is in the low 80s currently stable in the low 90s. Patient has renal failure is severe with hyperkalemia she was treated with hyperkalemic cocktail. Admitted to the hospital for hemodialysis urgently. She will need close monitoring for pulmonary worsening go to the ICU Critical Care Time: 35 minutes Treatments/Evaluations: Close monitoring and treatment of unstable vital signs, cardiorespiratory, and neurologic status, while maintaining tight balance of fluid, respiratory, and cardiac interventions. This time includes discussing the case with the patient and the patient's family. This time does not include all procedures stated elsewhere in this record. This time also includes reviewing old records, labs and radiological studies. This time includes examining and re-examining the patient. Additionally, this time also includes arranging care with admitting and consulting physicians. Departure Diagnosis: Primary Impression: Volume overload Hypervolemia type: unspecified Qualified Codes: E87.70 - Fluid overload, unspecified Additional Impressions: Hypoxia Renal failure Renal failure chronicity: acute Acute renal failure type: unspecified Qualified Codes: N17.9 - Acute kidney failure, unspecified Hyperkalemia Condition: Serious BRIAN KOO DO Aug 11, 2018 21:42
[2018-08-11] MEDS ORDERED: ACETAMINOPHEN 325 MG TAB PO PRN ×2 (22:00→22:30)
[2018-08-11] MEDS ORDERED: ONDANSETRON 4 MG INJ IV PRN ×2 (22:00→22:30)
[2018-08-11] MEDS ORDERED: SOD CHLORIDE 0.9% 1,000 ML IV SCH (22:23)
[2018-08-11] MEDS ORDERED: ALBUTEROL/IPRATROPIUM (NEB) 3 ML AMP HHN PRN (22:30)
[2018-08-11] MEDS ORDERED: NITROGLYCERIN (SL) 0.4 MG TAB SL PRN (22:30)
[2018-08-11] MEDS ORDERED: DOCUSATE SODIUM 100 MG CAP PO PRN (22:30)
[2018-08-11] MEDS ORDERED: FUROSEMIDE 40 MG INJ IV ONE (22:30)
[2018-08-11] MEDS ORDERED: MAGNESIUM HYDROXIDE 30ML CUP PO PRN (22:30)
[2018-08-11] MEDS ORDERED: NACL 0.9% 3 ML SYG IV SCH (22:30)
[2018-08-11] MEDS ORDERED: hydrALAzine 20 MG INJ IV PRN (22:30)
[2018-08-12] VITALS (37 sets, daily range): BP systolic 91–131; BP diastolic 52–108; PULSE 87–162; RESP 12–31; Ht 152.4 cm; Wt 80.0 kg
[2018-08-12] MEDS ORDERED: METO10TA3 PO (00:17)
[2018-08-12] MEDS ORDERED: HYDR25TA6 PO (00:17)
[2018-08-12] MEDS ORDERED: D-ME473S2 PO (00:17)
[2018-08-12] MEDS: morphine 2 MG INJ IV PRN ×3 (01:06→14:24)
[2018-08-12] MEDS: LORAZEPAM 2 MG INJ IV PRN (01:58)
[2018-08-12] MEDS ORDERED: LABETALOL HCL 20MG INJ IV ONE (03:00)
--- NOTE | 2018-08-12 03:03 | CONS ---
DATE OF ADMISSION: 08/11/2018 DATE OF CONSULTATION: TYPE OF CONSULTATION: Nephrology. REASON FOR CONSULTATION: Acute kidney injury. PHYSICIAN REQUESTING CONSULT: Dr. Bray. HISTORY OF PRESENT ILLNESS: This is a 27-year-old female with a past medical history of hypertension , a history of being deaf and mute, who presents to [facility] with difficulty lonnie thing and shortness of breath. The patient recently was seen by her primary care physician and was t old to come to the emergency room because she had a markedly elevated creatinine of 18. The patient subsequently developed worsening shortness of breath in the next 24 hours as well as some leg edema a nd arrived into the emergency room for evaluation. Upon arrival, the patient had a chest x-ray which showed evidence of pulmonary edema. In terms of patient's renal history, the patient on admission had laboratory data showed a BUN of 109 , creatinine 20.18, a potassium of 6.5, and bicarbonate of 9. The patient's most recent creatinine o n 07/14/2018 was 0.76 mg/dL in the emergency room a stat renal ultrasound was ordered and preliminary reports suggested markedly distended bladder with bilateral hydroureteronephrosis. The patient hers elf denies any recent hemoptysis, any hematemesis, any hematuria, any rashes, any frothy urine. The patient and family further deny any NSAID use. PAST MEDICAL HISTORY: History of hypertension, history of being deaf and mute. PAST SURGICAL HISTORY: Has been reviewed. ALLERGIES: NO KNOWN DRUG ALLERGIES. FAMILY HISTORY: No family history of kidney disease. SOCIAL HISTORY: Does not drink, smoke or do drugs. MEDICATIONS: The patient's medications have been reviewed. REVIEW OF SYSTEMS: A 14-point review of systems was conducted. Pertinent positive stated in HPI, ot herwise negative. PHYSICAL EXAMINATION: VITAL SIGNS: Blood pressure is 162/124, pulse 134, respirations 43, temperature 98.6. HEENT: Head is normocephalic. NECK: Positive for JVD. HEART: Tachycardic. LUNGS: Show diminished breath sounds at the base. Positive crackles. ABDOMEN: Soft, nontender to palpation. EXTREMITIES: Negative for clubbing, cyanosis. Positive edema. DERMATOLOGIC: No rashes. MUSCULOSKELETAL: No joint effusions. NEUROLOGIC: No obvious focal deficits. MEDICATIONS: The patient's medications have been reviewed. LABORATORY DATA: Has been reviewed. IMAGING STUDIES: The patient's chest x-ray, imaging studies were reviewed. ASSESSMENT AND PLAN: This is a 27-year-old female who presents with: 1. Oliguric acute kidney injury with previously normal baseline creatinine of 0.76 mg/dL in 07/2018. Etiology of acute kidney injury is likely secondary to obstructive uropathy. The patient's renal u ltrasound preliminary report shows a distended urinary bladder and bilateral hydronephrosis. Other p ossibilities including acute tubular injury, interstitial nephritis and a primary glomerulopathy are all considerations. Recommendations: Plan at this point would be to have a Gates catheter placed. Would get a stat CT abdomen and pelvis to rule out any possible mass effect. Would also check a UA w ith microanalysis, urine electrolytes. We will quantify any proteinuria. We will check serial renal panels. If renal function does not markedly improved after Gates catheter placement, the patient wi ll necessitate urgent hemodialysis. Would otherwise continue supportive care, renally dose all meds. 2. Hyperkalemia. Etiology secondary to acute kidney injury, metabolic acidosis. The patient is sta tus post Kayexalate, IV insulin. Agree with diuretic therapy. We will repeat potassium level and mo nitor closely. If potassium levels cannot be medically managed, the patient will require renal repla cement therapy. 3. Metabolic anion gap acidosis with respiratory compensation. Etiology secondary to acute kidney i njury. The patient is status post sodium bicarbonate. Recommendation is to treat underlying acute k idney injury as stated above. If renal function does not significantly improve after Gates catheter placement, would consider further bicarbonate therapy and/or hemodialysis. 4. Acute hypoxemic respiratory failure. Etiology is secondary to volume overload, pulmonary edema d ue to acute kidney injury. The patient's chest x-ray shows evidence of pulmonary edema. The patient also clinically is overloaded on exam. Recommendation is to give diuretic therapy. Agree with Lasi x 80 mg IV x1. Would monitor renal function and urinary output closely. If the patient is unable to adequately diurese, would start the patient on renal replacement therapy. 5. Anemia. Continue to monitor hemoglobin and hematocrit levels. 6. Hypertensive urgency. Etiology is likely multifactorial secondary to increased intravascular vol ume. Continue to monitor closely. Continue treatment plan as stated above. Continue current blood pressure regimen. 7. History of deaf, mute. Continue to monitor. 8. Encephalopathy, acute, etiology is toxic metabolic. Continue to monitor. Thank you, Dr. Bray, for this interesting consult. We will follow the patient with you throughout [facility] hospital course. I spent over 30 minutes of critical care time with this patient. Dictated By: MIGUEL AGUILAR/[place] Conf#: [id number] DID#: [id number]
--- NOTE | 2018-08-12 05:19 | HP ---
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 1. Shortness of breath: Again she did have signs of pleural effusion, symptoms all likely to be secondary to her renal insufficiency, likely post obstructive in nature -For now continue high flow oxygen, DuoNebs as needed, follow-up TSH A1c lipid panel -Try to wean oxygen tolerated and obtain pulmonary consult 2. Acute kidney injury: Again creatinine today 20. Baseline 1 month ago appears to be 0.7. Per renal team her acute kidney injury is likely secondary to obstructive uropathy, as her renal ultrasound preliminary report shows a distended urinary bladder and bilateral hydronephrosis. Per renal team other possibilities including acute tubular injury, interstitial nephritis and a primary glomerulopathy are all considerations. -Continue Gates catheter, given the hematuria also obtain urology consult -Follow final results of the CT scan abdomen pelvis and will monitor urine output -Again patient status post IV Lasix x1 3. Tachycardia: Likely second #1 -Monitor, continue to monitor urine output via Gates catheter 4. 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 Hypertension: Monitor blood pressure for now Result Diagram: 08/11/18192908/11/181929 Results 24hrs Laboratory Tests Test 08/11/18 19:30 08/11/18 20:31 08/11/18 20:44 08/11/18 20:59 White Blood 9.2 # Count Red Blood Count 3.79 L Hemoglobin 10.2 L Hematocrit 31.7 #L Mean Corpuscular 83.6 Volume Mean Corpuscular 26.9 L Hemoglobin Mean Corpuscular 32.2 Hemoglobin Rhona nt Red Cell 13.4 Distribution Width Platelet Count 207 Mean Platelet 9.7 Volume Immature 0.200 Granulocytes % Neutrophils % 87.8 H Lymphocytes % 6.8 L Monocytes % 5.1 Eosinophils % 0.0 Basophils % 0.1 Nucleated Red 0.0 Blood Cells % Immature 0.020 Granulocytes # Neutrophils # 8.1 H Lymphocytes # 0.6 L Monocytes # 0.5 Eosinophils # 0.0 Basophils # 0.0 Nucleated Red 0.0 Blood Cells # Prothrombin Time 16.8 #H Prothrombin Time 1.3 Ratio INR 1.35 International Normalized Ratio Activated 31.6 Partial Thrombop last Time Sodium Level 139 Potassium Level 6.5 *H Chloride Level 107 Carbon Dioxide 9 *L Level Anion Gap 23 H Blood Urea 109 H Nitrogen Creatinine 20.18 H Est Glomerular 2 L Filtrat Rate mL/min Glucose Level 114 Hemoglobin A1c 5.3 Calcium Level 8.8 Total Bilirubin 0.2 Direct Bilirubin 0.00 Indirect 0.2 Bilirubin Aspartate Amino 11 L Transf (AST/SGOT ) Alanine 14 Aminotransferase (ALT/SGPT) Alkaline 91 Phosphatase Troponin I 0.021 B-Type 5160 H Natriuretic Peptide Total Protein 7.4 Albumin 3.7 Globulin 3.70 H Albumin/Globulin 1.00 Ratio Free Thyroxine 1.33 Serum HCG, NEGATIVE Qualitative Bedside Glucose 133 234 H Blood Gas Blood arterial Specimen Source Arterial Blood 08/11/2018 9:10:51 Date Drawn PM Arterial Blood 7.312 L pH (Temp corrected) Arterial Blood 23.3 L pCO2 (Temp correct) Arterial Blood 77.8 L pO2 (Temp corrected) Arterial Blood 11.5 L HCO3 Arterial Blood -13.1 L Base Excess Arterial Blood 94.0 L Oxygen Saturatio n Pino Test ACCEPTAB Arterial Blood Left Radial Gas Puncture Site Arterial 0.3 Blood Carboxyhem oglobin Arterial Blood 0.3 Methemoglobin Blood Gas A-a O2 611.9 H Differential Oxyhemoglobin 93.4 Percent Blood Gas 37.0 Temperature Blood Gas Actual 35 Respiration Rate Blood Gas HFNC Modality FiO2 100.0 Blood Gas 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 Whom Blood Gas 08/11/2018 9:20:28 Notified Time PM Test 08/11/18 23:33 08/12/18 01:54 Urine Color YELLOW Urine Clarity SLIGHTLY CLOUDY A Urine pH 7.0 Urine Specific 1.009 [place] Urine Ketones TRACE A Urine Nitrite NEGATIVE Urine Bilirubin NEGATIVE Urine NEGATIVE Urobilinogen Urine Leukocyte NEGATIVE Esterase Urine > 182 H Microscopic RBC Urine 6 H Microscopic WBC Urine Squamous FEW Epithelial Cells Urine Bacteria FEW A Urine Hemoglobin 3+ H Urine Random 65.59 Creatinine Urine Random 110 H Sodium Urine Glucose NEGATIVE Urine Total 28.0 H Protein Lactic Acid 2.4 *H Level HPI/ROS Admit Date/Time Admit Date/Time Aug 11, 2018 at 21:43 Hx of Present Illness 27-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 Symptoms became severe so the patient went to her primary care doctor and was told to come into the ER because her creatinine was found to be very elevated at 18. Patient also was complaining of some mild swelling in her legs. When she came in today she was found with a creatinine of 20, her potassium was 6.5. She did receive a dose of IV Lasix 80 mg and she has been diuresing well since that time. She also received sodium bicarb, Kayexalate, insulin to treat her hyperkalemia. Looking at records back in July of this year, 1 month ago, her baseline creatinine appears to be 0.76. A call was made out for the renal doctor to come see the patient he has already ordered a renal ultrasound and Gates catheter has been inserted and patient is making a lot of urine at this time. PMH/Family/Social Past Medical History Medications Current Medications Dextrose (D50w Syringe) ONCE PRN IV DECREASED GLUCOSE; Start 08/11/18 at 20:30; Stop 08/12/18 at 20:29 Ondansetron HCl (Zofran Inj) 4 mg BRIDGE ORDER PRN IV NAUSEA/VOMITING; Start 08/11/18 at 22:00; Stop 08/12/18 at 21:59 Acetaminophen (Tylenol Tab) 650 mg ER BRIDGE PRN PO .MILD PAIN 1-3 OR TEMP; Start 08/11/18 at 22:00; Stop 08/12/18 at 21:59 IV Flush (NS 3 ml) 3 ml PER PROTOCOL IV ; Start 08/11/18 at 22:30 Ondansetron HCl (Zofran Inj) 4 mg Q6H PRN IV NAUSEA/VOMITING Last administered on 08/12/18at 01:06; Admin Dose 4 MG; Start 08/11/18 at 22:30 Acetaminophen (Tylenol Tab) 650 mg Q6H PRN PO .PAIN 1-3 OR TEMP; Start 08/11/18 at 22:30 Acetaminophen/ Hydrocodone Bitart ([place] (5/325)) 1 tab Q6H PRN PO .MOD PAIN 4- 6; Start 08/11/18 at 22:30 Morphine Sulfate (morphine) 2 mg Q4H PRN IV .SEVERE PAIN 7-10 Last administered on 08/12/18at 01:06; Admin Dose 2 MG; Start 08/11/18 at 22:30 Docusate Sodium (Colace) 100 mg Q12H PRN PO .CONSTIPATION; Start 08/11/18 at 22:30 Magnesium Hydroxide (Milk Of Mag) 30 ml DAILY PRN PO .CONSTIPATION; Start 08/11/18 at 22:30 Lorazepam (Ativan) 0.5 mg Q6H PRN IV ANXIETY Last administered on 08/12/18at 01:58; Admin Dose 0.5 MG; Start 08/11/18 at 22:30 Sodium Chloride 1,000 ml @ 100 mls/hr Q10H IV Last administered on 08/11/18at 23:42; Admin Dose 100 MLS/HR; Start 08/11/18 at 22:23 Albuterol/ Ipratropium (Duoneb) 3 ml Q4H RESP THERAPY PRN HHN SHORTNESS OF BREATH; Start 08/11/18 at 22:30 Hydralazine HCl (Apresoline) 10 mg Q6H PRN IV ELEVATED BLOOD PRESSURE; Start 08/11/18 at 22:30 Nitroglycerin (Nitroglycerin (Sl Tab) 0.4 Mg) 1 tab Q5M PRN SL ANGINA; Start 08/11/18 at 22:30 Coded Allergies: No Known Allergy (Unverified , 08/12/18) Past Surgical History Past Surgical Hx: no surgical history Social History Alcohol Use: none Smoking Status: Never smoker Drug Use: none Exam/Review of Systems Vital Signs Vitals Vital Signs Date Temp Pulse Resp B/P (MAP) Pulse Ox O2 O2 Flow FiO2 Time Delivery Rate 08/12/18 96 80 04:00 08/12/18 125 22 116/98 High Flow 03:45 (104) 08/12/18 98.4 02:15 08/11/18 30 19:54 Intake and Output 08/11/18 08/11/18 08/12/18 1515:00 23:00 07:00 IntakeIntake Total 1000 ml OutputOutput Total 6250 ml BalanceBalance -5250 ml Exam Exam Gen: Lying in bed, on high flow oxygen, lethargic Head: Atraumatic. Eyes: Normal Conjunctiva. ENT: Normal External Ears, Nose and Mouth. Neck: Full range of motion. No meningismus. Resp: Distant breath sounds bilaterally Cardio: Tachycardic heart rate Abd: Soft, nondistended, normal bowel sounds, non tender. Ext: Trace pitting edema bilateral extremities to the ankles Neuro: No focal deficits LISSETTE DAVIS Aug 12, 2018 05:18
--- NOTE | 2018-08-12 08:52 | CONS ---
Assessment/Plan Assessment/Plan Assessment/Plan (Daily) Chest x-ray showing pulmonary edema. Assessment and recommendations; 1. Patient admitted with acute renal failure with bilateral hydronephrosis likely due to urinary retention, patient has put out 4 L of urine after Gates catheter placement. Patient being followed by urologist. 2. History of being deaf and mute. 3. Pulmonary edema from acute renal failure, clinically improving. 4. Possibly UTI. Continue current supportive care. Wean down FiO2 as tolerated. Obtain follow- up chest x-ray 24 hours. Consultation Date/Type/Reason Admit Date/Time Aug 11, 2018 at 21:43 Date of Consultation: Aug 12, 2018 Type of Consult Pulmonary Patient is a 27-year-old lady who was admitted because of acute renal failure. Patient was seen in outpatient clinic and serum creatinine was 18. Patient has been admitted to ICU and started on-nasal cannula, a Gates catheter was put in which drained about 4 L of urine. By the time I saw her patient remains awake and alert and does not appear to be in any distress whatsoever shortness of breath is improving. Denies any fever or chills. Any abdominal pain, nausea vomiting. Past medical history; 1. History of being deaf and mute. Medications; reviewed. Allergies; none. Family history; noncontributory. Patient does have a supportive family. Occupational history; patient is on disability. Social history; noncontributory. Review of systems; denies any headache, shortness of breath is improving. Any coughing, wheezing, hemoptysis or any sputum production. Denies any fever or chills. Any abdominal pain, nausea vomiting. Any melena or hematochezia. General exam; young woman, awake alert, currently in no distress. On high flow nasal cannula at 80% FiO2. Date/Time of Note DATE: 08/12/18 TIME: 08:49 Past Medical History Home Meds Active Scripts Naproxen* (Naprosyn*) 500 Mg Tablet, 500 MG PO BID PRN for PAIN AND/OR INFLAMMATION, #30 TAB Prov:VALENTINO SAWANT PA-C 07/14/18 Reported Medications Dextromethorphan Hb-Promethazine Hcl* (Promethazine DM* Syrup) 473 Ml Syrup, 6.25 MG PO Q6H PRN for COUGH for 25 Days 08/12/18 Hydrochlorothiazide* (Hydrochlorothiazide*) 25 Mg Tab, 25 MG PO DAILY for 14 Days, #14 08/12/18 Metoclopramide Hcl* (Metoclopramide Hcl*) 10 Mg Tablet, 10 MG PO DAILY for 10 Days 08/12/18 Discontinued Reported Medications Ferrous Sulfate (Iron) 325 Mg Capsule.er, 325 MG PO, CAP 10/13/16 Vits W-Ca,Fe,Fa(<1MG) ( Vitamins) 1 Tab Tablet, 1 TAB PO DAILY 11/05/14 Discontinued Scripts Docusate Sodium* (Colace*) 100 Mg Capsule, 100 MG PO TID, #30 CAP Prov:VALENTINO SAWANT PA-C 07/14/18 Cephalexin* (Keflex*) 500 Mg Capsule, 500 MG PO TID for 7 Days, CAP Prov:VALENTINO SAWANT PA-C 07/14/18 Medications Current Medications Dextrose (D50w Syringe) ONCE PRN IV DECREASED GLUCOSE; Start 08/11/18 at 20:30; Stop 08/12/18 at 20:29 Ondansetron HCl (Zofran Inj) 4 mg BRIDGE ORDER PRN IV NAUSEA/VOMITING; Start 08/11/18 at 22:00; Stop 08/12/18 at 21:59 Acetaminophen (Tylenol Tab) 650 mg ER BRIDGE PRN PO .MILD PAIN 1-3 OR TEMP; Start 08/11/18 at 22:00; Stop 08/12/18 at 21:59 IV Flush (NS 3 ml) 3 ml PER PROTOCOL IV ; Start 08/11/18 at 22:30 Ondansetron HCl (Zofran Inj) 4 mg Q6H PRN IV NAUSEA/VOMITING Last administered on 08/12/18at 01:06; Admin Dose 4 MG; Start 08/11/18 at 22:30 Acetaminophen (Tylenol Tab) 650 mg Q6H PRN PO .PAIN 1-3 OR TEMP; Start 08/11/18 at 22:30 Acetaminophen/ Hydrocodone Bitart ([place] (5/325)) 1 tab Q6H PRN PO .MOD PAIN 4- 6; Start 08/11/18 at 22:30 Morphine Sulfate (morphine) 2 mg Q4H PRN IV .SEVERE PAIN 7-10 Last administered on 08/12/18at 05:25; Admin Dose 2 MG; Start 08/11/18 at 22:30 Docusate Sodium (Colace) 100 mg Q12H PRN PO .CONSTIPATION; Start 08/11/18 at 22:30 Magnesium Hydroxide (Milk Of Mag) 30 ml DAILY PRN PO .CONSTIPATION; Start 08/11/18 at 22:30 Lorazepam (Ativan) 0.5 mg Q6H PRN IV ANXIETY Last administered on 08/12/18at 01:58; Admin Dose 0.5 MG; Start 08/11/18 at 22:30 Albuterol/ Ipratropium (Duoneb) 3 ml Q4H RESP THERAPY PRN HHN SHORTNESS OF BREATH; Start 08/11/18 at 22:30 Hydralazine HCl (Apresoline) 10 mg Q6H PRN IV ELEVATED BLOOD PRESSURE; Start 08/11/18 at 22:30 Nitroglycerin (Nitroglycerin (Sl Tab) 0.4 Mg) 1 tab Q5M PRN SL ANGINA; Start 08/11/18 at 22:30 Cefepime HCl 50 ml @ 100 mls/hr Q12 IVPB ; Start 08/12/18 at 09:00; Status UNV Allergies: Coded Allergies: No Known Allergy (Unverified , 08/12/18) Past Surgical History Past Surgical Hx: no surgical history Social History Alcohol Use: none Smoking Status: Never smoker Drug Use: none Exam/Review of Systems Exam Vitals Vital Signs Date Temp Pulse Resp B/P (MAP) Pulse Ox O2 O2 Flow FiO2 Time Delivery Rate 08/12/18 97 80 08:19 08/12/18 131 15 113/92 High Flow 06:15 (99) 08/12/18 99.3 04:00 08/11/18 30 19:54 Intake and Output 08/11/18 08/11/18 08/12/18 1515:00 23:00 07:00 IntakeIntake Total 1220 ml OutputOutput Total 7900 ml BalanceBalance -6680 ml Exam H EENT exam; supple neck, no JVD. No lymphadenopathy. Midline trachea. No thyromegaly. Patient has good dentition. No neck masses. Chest exam; diminished but clear breath sounds. S1-S2 audible, no murmurs. Regular rhythm. Abdomen exam; soft, nontender. No organomegaly. Bowel sounds audible. Extremity exam; peripheral edema clubbing. Pulses 2+. 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 Results Result Diagram: 08/12/18 0419 08/12/18 0419 Results 24hrs Laboratory Tests Test 08/11/18 19:30 08/11/18 20:31 08/11/18 20:44 08/11/18 20:59 White Blood 9.2 # Count Red Blood Count 3.79 L Hemoglobin 10.2 L Hematocrit 31.7 #L Mean Corpuscular 83.6 Volume Mean Corpuscular 26.9 L Hemoglobin Mean Corpuscular 32.2 Hemoglobin Rhona nt Red Cell 13.4 Distribution Width Platelet Count 207 Mean Platelet 9.7 Volume Immature 0.200 Granulocytes % Neutrophils % 87.8 H Lymphocytes % 6.8 L Monocytes % 5.1 Eosinophils % 0.0 Basophils % 0.1 Nucleated Red 0.0 Blood Cells % Immature 0.020 Granulocytes # Neutrophils # 8.1 H Lymphocytes # 0.6 L Monocytes # 0.5 Eosinophils # 0.0 Basophils # 0.0 Nucleated Red 0.0 Blood Cells # Prothrombin Time 16.8 #H Prothrombin Time 1.3 Ratio INR 1.35 International Normalized Ratio Activated 31.6 Partial Thrombop last Time Sodium Level 139 Potassium Level 6.5 *H Chloride Level 107 Carbon Dioxide 9 *L Level Anion Gap 23 H Blood Urea 109 H Nitrogen Creatinine 20.18 H Est Glomerular 2 L Filtrat Rate mL/min Glucose Level 114 Hemoglobin A1c 5.3 Calcium Level 8.8 Total Bilirubin 0.2 Direct Bilirubin 0.00 Indirect 0.2 Bilirubin Aspartate Amino 11 L Transf (AST/SGOT ) Alanine 14 Aminotransferase (ALT/SGPT) Alkaline 91 Phosphatase Troponin I 0.021 B-Type 5160 H Natriuretic Peptide Total Protein 7.4 Albumin 3.7 Globulin 3.70 H Albumin/Globulin 1.00 Ratio Free Thyroxine 1.33 Serum HCG, NEGATIVE Qualitative Bedside Glucose 133 234 H Blood Gas Blood arterial Specimen Source Arterial Blood 08/11/2018 9:10:51 Date Drawn PM Arterial Blood 7.312 L pH (Temp corrected) Arterial Blood 23.3 L pCO2 (Temp correct) Arterial Blood 77.8 L pO2 (Temp corrected) Arterial Blood 11.5 L HCO3 Arterial Blood -13.1 L Base Excess Arterial Blood 94.0 L Oxygen Saturatio n Pino Test ACCEPTAB Arterial Blood Left Radial Gas Puncture Site Arterial 0.3 Blood Carboxyhem oglobin Arterial Blood 0.3 Methemoglobin Blood Gas A-a O2 611.9 H Differential Oxyhemoglobin 93.4 Percent Blood Gas 37.0 Temperature Blood Gas Actual 35 Respiration Rate Blood Gas HFNC Modality FiO2 100.0 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0 Level White Blood 12.3 #H Count Red Blood Count 4.88 # Hemoglobin 12.8 # Hematocrit 39.5 # Mean Corpuscular 80.9 L Volume Mean Corpuscular 26.2 L Hemoglobin Mean Corpuscular 32.4 Hemoglobin Rhona nt Red Cell 13.3 Distribution Width Platelet Count 273 # Mean Platelet 10.1 Volume Immature 0.300 Granulocytes % Neutrophils % 91.3 H Lymphocytes % 4.6 L Monocytes % 3.7 Eosinophils % 0.0 Basophils % 0.1 Nucleated Red 0.0 Blood Cells % Immature 0.040 H Granulocytes # Neutrophils # 11.2 H Lymphocytes # 0.6 L Monocytes # 0.5 Eosinophils # 0.0 Basophils # 0.0 Nucleated Red 0.0 Blood Cells # Sodium Level 144 Potassium Level 4.6 Chloride Level 106 Carbon Dioxide 16 L Level Anion Gap 22 H Blood Urea 79 #H Nitrogen Creatinine 9.90 #H Est Glomerular 5 L Filtrat Rate mL/min Glucose Level 187 Hemoglobin A1c 5.0 Calcium Level 11.8 #H Phosphorus Level 8.7 H Magnesium Level 1.9 Triglycerides 82 Level Cholesterol 181 Level LDL Cholesterol, 122 Calculated HDL Cholesterol 43 Cholesterol/HDL 4.2 Ratio Thyroid 1.080 Stimulating Hormone (TSH) Medications Medication Current Medications Dextrose (D50w Syringe) ONCE PRN IV DECREASED GLUCOSE; Start 08/11/18 at 20:30; Stop 08/12/18 at 20:29 Ondansetron HCl (Zofran Inj) 4 mg BRIDGE ORDER PRN IV NAUSEA/VOMITING; Start 08/11/18 at 22:00; Stop 08/12/18 at 21:59 Acetaminophen (Tylenol Tab) 650 mg ER BRIDGE PRN PO .MILD PAIN 1-3 OR TEMP; Start 08/11/18 at 22:00; Stop 08/12/18 at 21:59 IV Flush (NS 3 ml) 3 ml PER PROTOCOL IV ; Start 08/11/18 at 22:30 Ondansetron HCl (Zofran Inj) 4 mg Q6H PRN IV NAUSEA/VOMITING Last administered on 08/12/18at 01:06; Admin Dose 4 MG; Start 08/11/18 at 22:30 Acetaminophen (Tylenol Tab) 650 mg Q6H PRN PO .PAIN 1-3 OR TEMP; Start 08/11/18 at 22:30 Acetaminophen/ Hydrocodone Bitart ([place] (5/325)) 1 tab Q6H PRN PO .MOD PAIN 4- 6; Start 08/11/18 at 22:30 Morphine Sulfate (morphine) 2 mg Q4H PRN IV .SEVERE PAIN 7-10 Last administered on 08/12/18at 05:25; Admin Dose 2 MG; Start 08/11/18 at 22:30 Docusate Sodium (Colace) 100 mg Q12H PRN PO .CONSTIPATION; Start 08/11/18 at 22:30 Magnesium Hydroxide (Milk Of Mag) 30 ml DAILY PRN PO .CONSTIPATION; Start 08/11/18 at 22:30 Lorazepam (Ativan) 0.5 mg Q6H PRN IV ANXIETY Last administered on 08/12/18at 01:58; Admin Dose 0.5 MG; Start 08/11/18 at 22:30 Albuterol/ Ipratropium (Duoneb) 3 ml Q4H RESP THERAPY PRN HHN SHORTNESS OF BREATH; Start 08/11/18 at 22:30 Hydralazine HCl (Apresoline) 10 mg Q6H PRN IV ELEVATED BLOOD PRESSURE; Start 08/11/18 at 22:30 Nitroglycerin (Nitroglycerin (Sl Tab) 0.4 Mg) 1 tab Q5M PRN SL ANGINA; Start 08/11/18 at 22:30 Cefepime HCl 50 ml @ 100 mls/hr Q12 IVPB ; Start 08/12/18 at 09:00; Status TIFFANIE MARLOW Aug 12, 2018 08:52
--- NOTE | 2018-08-12 08:53 | PN ---
DATE: 08/12/2018 SUBJECTIVE: Yesterday, the patient had copious urinary output after Gates catheter placement, greate r than 8 liters. Patient did have ongoing hematuria which has slowly been improving. The patient co ntinues to have respiratory failure, although clinically improving. No other acute events noted. No hemoptysis, hematemesis or hematochezia. OBJECTIVE: VITAL SIGNS: Blood pressure is 113/92, respirations 15, pulse 131, temperature 98.6. HEENT: Head is normocephalic. NECK: Supple. HEART: Regular rate. LUNGS: Show diminished breath sounds at the base. ABDOMEN: Soft, nontender to palpation without rebound or guarding. EXTREMITIES: Negative for clubbing, cyanosis, no edema. DERMATOLOGIC: No rashes. MUSCULOSKELETAL: No joint effusion. NEUROLOGIC: No change in exam. MEDICATIONS: The patient's medications have been reviewed. LABORATORY DATA: Has been reviewed. Imaging studies have been reviewed. Urine electrolytes have been reviewed. ASSESSMENT AND PLAN: This is a 27-year-old female who presents with: 1. Nonoliguric acute kidney injury with previous baseline creatinine of 0.76 mg per deciliter. Etio logy of acute kidney injury is secondary to obstructive uropathy due to likely to bladder outlet synd josue. Patient's CT abdomen and pelvis, renal ultrasound showed evidence of significant bilateral hyd roureteronephrosis. The patient's urinary output and renal function has been improving after Gates c atheter placement. At this point, would continue current medical management. Continue to monitor re nal function and electrolytes closely. Watch closely for osmotic diuresis. No immediate need for re nal replacement therapy at this time. 2. Hyperkalemia. Etiology secondary to acute kidney injury and obstructive uropathy. The patient's potassium levels have improved. Continue to monitor. 3. Metabolic acidosis, etiology secondary to acute kidney injury and bladder outlet obstruction. Th e patient's bicarbonate levels have been improving. We will continue to monitor. No need for bicarb queta therapy. 4. Acute hypoxemic respiratory failure, etiology secondary to volume overload, pulmonary edema, righ t-sided pleural effusion. The patient is status post Lasix with excellent urinary output. Will cont inue to monitor. Repeat chest x-ray. Continue high flow oxygen. Deescalate as possible. Follow up with pulmonary. 5. Anemia. Monitor hemoglobin and hematocrit levels. 6. Hypertensive urgency, etiology in part due to increased intravascular volume. The patient's bloo d pressures have been improved with pain control and diuretic therapy. Continue to monitor. 7. Encephalopathy, etiology is toxic metabolic, improving. Continue to monitor. 8. History of being deaf and mute. 9. Mineral bone disorder. The patient is currently hypocalcemic, hyperphosphatemic. Etiology is li srinath due to acute kidney injury. We will check a PTH level. Continue to monitor. Please note I spent over 30 minutes of critical care time with this patient. Dictated By: MIGUEL BENSON DO NR/NTS Conf#: [id number] DID#: [id number] CC: LISSETTE DAVIS; JAK WALSH MD; KIRBY PHILLIP MD;*EndCC*
--- NOTE | 2018-08-12 09:21 | PN ---
Date/Time of Note Date/Time of Note DATE: 08/12/18 TIME: 09:21 Objective Vitals Vital Signs Date Temp Pulse Resp B/P (MAP) Pulse Ox O2 O2 Flow FiO2 Time Delivery Rate 08/12/18 97 80 08:19 08/12/18 121 08:00 08/12/18 97.8 14 115/96 High Flow 20.0 08:00 (102) Intake and Output 08/11/18 08/11/18 08/12/18 1515:00 23:00 07:00 IntakeIntake Total 1220 ml OutputOutput Total 7900 ml BalanceBalance -6680 ml Results Result Diagram: 08/12/18 0419 08/12/18 0419 Medications Medications Current Medications Dextrose (D50w Syringe) ONCE PRN IV DECREASED GLUCOSE; Start 08/11/18 at 20:30; Stop 08/12/18 at 20:29 Ondansetron HCl (Zofran Inj) 4 mg BRIDGE ORDER PRN IV NAUSEA/VOMITING; Start 08/11/18 at 22:00; Stop 08/12/18 at 21:59 Acetaminophen (Tylenol Tab) 650 mg ER BRIDGE PRN PO .MILD PAIN 1-3 OR TEMP; St art 08/11/18 at 22:00; Stop 08/12/18 at 21:59 IV Flush (NS 3 ml) 3 ml PER PROTOCOL IV ; Start 08/11/18 at 22:30 Ondansetron HCl (Zofran Inj) 4 mg Q6H PRN IV NAUSEA/VOMITING Last administered on 08/12/18at 01:06; Admin Dose 4 MG; Start 08/11/18 at 22:30 Acetaminophen (Tylenol Tab) 650 mg Q6H PRN PO .PAIN 1-3 OR TEMP; Start 08/11/18 at 22:30 Acetaminophen/ Hydrocodone Bitart ([place] (5/325)) 1 tab Q6H PRN PO .MOD PAIN 4- 6; Start 08/11/18 at 22:30 Morphine Sulfate (morphine) 2 mg Q4H PRN IV .SEVERE PAIN 7-10 Last administered on 08/12/18at 05:25; Admin Dose 2 MG; Start 08/11/18 at 22:30 Docusate Sodium (Colace) 100 mg Q12H PRN PO .CONSTIPATION; Start 08/11/18 at 22:30 Magnesium Hydroxide (Milk Of Mag) 30 ml DAILY PRN PO .CONSTIPATION; Start 08/11/18 at 22:30 Lorazepam (Ativan) 0.5 mg Q6H PRN IV ANXIETY Last administered on 08/12/18at 01:58; Admin Dose 0.5 MG; Start 08/11/18 at 22:30 Albuterol/ Ipratropium (Duoneb) 3 ml Q4H RESP THERAPY PRN HHN SHORTNESS OF BREATH; Start 08/11/18 at 22:30 Hydralazine HCl (Apresoline) 10 mg Q6H PRN IV ELEVATED BLOOD PRESSURE; Start 08/11/18 at 22:30 Nitroglycerin (Nitroglycerin (Sl Tab) 0.4 Mg) 1 tab Q5M PRN SL ANGINA; Start 08/11/18 at 22:30 Cefepime HCl 50 ml @ 100 mls/hr Q12 IVPB ; Start 08/12/18 at 09:00 VTE Prophylaxis Risk score (from [facility] [place]0 risk: 4 SCD applied (from [facility] [place]): Yes Lines/Catheters IV Catheter Type: Oliver in Place: Yes Cont'd oliver catheter reason: urinary retention Assessment/Plan Hospital Course Subjective Patient feeling much better than yesterday however still has some residual flank pain on the left, no epigastric pain, no chest pain. Still some mild shortness of breath and palpitations Objective Physical exam General: Patient is laying in bed and answers questions appropriately, patient is deaf and mute Mentation: Patient is alert and oriented 4, Head: Normocephalic atraumatic Eyes: EOMI, pupils reactive to light Neck: Supple, nontender, midline Respiratory: Coarse to auscultation bilaterally Cardiovascular: regular rate, no obvious murmurs Gastrointestinal: Mild left flank tenderness to palpation, bowel sounds heard. Neurological: Moves all extremities spontaneously Skin: No new skin lesions Assessment and plan Acute renal failure -Possibly secondary to UTI versus bladder outlet syndrome per urology and nephrology -Likely secondary to obstruction -Oliver catheter, continue to drain, urology recognitions appreciated -Nephrology also on board, creatinine has improved significantly since admission, monitor, work-up pending Shortness of breath, resolving -Likely secondary to pleural effusion which is secondary to volume overload due to acute renal failure, may also have pneumonia, IV antibiotics on board -Pulmonary and nephrology recommendations appreciated -I would suspect patient's shortness of breath will continue to improve as patient's renal function continues to improve. Pneumonia -IV antibiotic -Monitor closely Bilateral hydronephrosis and hydroureter -Secondary to above renal failure Anasarca -Secondary to above renal failure Tachycardia -Secondary to above renal failure as well as Lantus of breath Muscle cramps -Secondary to electrolyte imbalances due to acute renal failure, monitor closely Pancreatic issues on CT -Patient has no epigastric pain -Lipase pending Hypertension -Treat as needed Disposition -Continue ICU care, patient's creatinine is significantly improved however patient still short of breath tachycardic -More than 40 minutes of critical time was spent on this evaluation JAK WALSH Aug 12, 2018 09:21
[2018-08-12] MEDS ORDERED: IPRATROPIUM (NEB) 0.5 MG/2.5 ML AMP HHN PRN (09:30)
[2018-08-12] MEDS ORDERED: LEVALBUTEROL (NEB) 1.25 MG/0.5 ML AMP HHN PRN (09:30)
[2018-08-12] MEDS: CEFEPIME 1GM/50 ML (PMX) 50 ML IVPB SCH ×2 (11:21→20:44)
[2018-08-12] MEDS ORDERED: SOD CHLORIDE 0.9% 1,000 ML IV SCH (14:30)
[2018-08-12] MEDS: IPRATROPIUM (NEB) 0.5 MG/2.5 ML AMP HHN SCH ×2 (14:40→19:26)
[2018-08-12] MEDS: LEVALBUTEROL (NEB) 1.25 MG/0.5 ML AMP HHN SCH ×2 (14:40→19:27)
--- NOTE | 2018-08-12 14:43 | CONS ---
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 The patient did see her primary care physician and was told to come to the emergency room because her creatinine was 18. Creatinine repeated in the emergency room was 20. She had a CT scan of the abdomen and pelvis and that showed bilateral hydroureteronephrosis and distended urinary bladder. A Gates catheter was inserted and over a liter was obtained and the nurse in the ICU tells me that in the emergency room they had 5 L come out and in the ICU 4 L of urine output as well but the patient did receive Lasix 80 mg because her potassium was very high 6.5. This patient serum creatinine back about a month earlier was 0.76 After the insertion of the Gates catheter her renal function started to improve, the creatinine has come down to 9.90 and now 3.08. Impression: Urinary retention and that is a cause of her hydronephrosis. 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 The patient did see her primary care physician and was told to come to the emergency room because her creatinine was 18. Creatinine repeated in the emergency room was 20. She had a CT scan of the abdomen and pelvis and that showed bilateral hydroureteronephrosis and distended urinary bladder. A Gates catheter was inserted and over a liter was obtained and the nurse in the ICU tells me that in the emergency room they had 5 L come out and in the ICU 4 L of urine output as well but the patient did receive Lasix 80 mg because her potassium was very high 6.5. This patient serum creatinine back about a month earlier was 0.76 Subjective hx not possible: pt non-verbal (Deaf-mute) Constitutional: no complaints Eyes: no complaints Respiratory: shortness of breath (On admission) Cardiovascular: No chest pain Gastrointestinal: No nausea, No vomiting Genitourinary: other (Distended urinary bladder) Musculoskeletal: no complaints Skin: no complaints Past Medical History Medical History: no pertinent history Home Meds Active Scripts Naproxen* (Naprosyn*) 500 Mg Tablet, 500 MG PO BID PRN for PAIN AND/OR INFLAMMATION, #30 TAB Prov:VALENTINO SAWANT PA-C 07/14/18 Reported Medications Dextromethorphan Hb-Promethazine Hcl* (Promethazine DM* Syrup) 473 Ml Syrup, 6.25 MG PO Q6H PRN for COUGH for 25 Days 08/12/18 Hydrochlorothiazide* (Hydrochlorothiazide*) 25 Mg Tab, 25 MG PO DAILY for 14 Days, #14 08/12/18 Metoclopramide Hcl* (Metoclopramide Hcl*) 10 Mg Tablet, 10 MG PO DAILY for 10 Days 08/12/18 Discontinued Reported Medications Ferrous Sulfate (Iron) 325 Mg Capsule.er, 325 MG PO, CAP 10/13/16 Vits W-Ca,Fe,Fa(<1MG) ( Vitamins) 1 Tab Tablet, 1 TAB PO DAILY 11/05/14 Discontinued Scripts Docusate Sodium* (Colace*) 100 Mg Capsule, 100 MG PO TID, #30 CAP Prov:VALENTINO SAWANT PA-C 07/14/18 Cephalexin* (Keflex*) 500 Mg Capsule, 500 MG PO TID for 7 Days, CAP Prov:VALENTINO SAWANT PA-C 07/14/18 Medications Current Medications Dextrose (D50w Syringe) ONCE PRN IV DECREASED GLUCOSE; Start 08/11/18 at 20:30; Stop 08/12/18 at 20:29 IV Flush (NS 3 ml) 3 ml PER PROTOCOL IV ; Start 08/11/18 at 22:30 Ondansetron HCl (Zofran Inj) 4 mg Q6H PRN IV NAUSEA/VOMITING Last administered on 08/12/18at 01:06; Admin Dose 4 MG; Start 08/11/18 at 22:30 Acetaminophen (Tylenol Tab) 650 mg Q6H PRN PO .PAIN 1-3 OR TEMP; Start 08/11/18 at 22:30 Acetaminophen/ Hydrocodone Bitart ([place] (5/325)) 1 tab Q6H PRN PO .MOD PAIN 4- 6; Start 08/11/18 at 22:30 Morphine Sulfate (morphine) 2 mg Q4H PRN IV .SEVERE PAIN 7-10 Last administered on 08/12/18at 14:24; Admin Dose 2 MG; Start 08/11/18 at 22:30 Docusate Sodium (Colace) 100 mg Q12H PRN PO .CONSTIPATION; Start 08/11/18 at 22:30 Magnesium Hydroxide (Milk Of Mag) 30 ml DAILY PRN PO .CONSTIPATION; Start 08/11/18 at 22:30 Lorazepam (Ativan) 0.5 mg Q6H PRN IV ANXIETY Last administered on 08/12/18at 01:58; Admin Dose 0.5 MG; Start 08/11/18 at 22:30 Hydralazine HCl (Apresoline) 10 mg Q6H PRN IV ELEVATED BLOOD PRESSURE; Start 08/11/18 at 22:30 Nitroglycerin (Nitroglycerin (Sl Tab) 0.4 Mg) 1 tab Q5M PRN SL ANGINA; Start 08/11/18 at 22:30 Cefepime HCl 50 ml @ 100 mls/hr Q12 IVPB Last administered on 08/12/18at 11:21; Admin Dose 100 MLS/HR; Start 08/12/18 at 09:00 Levalbuterol (Xopenex Neb) 1.25 mg Q6H RESP THERAPY HHN ; Start 08/12/18 at 14:00 Levalbuterol (Xopenex Neb) 1.25 mg Q6H RESP THERAPY PRN HHN shortness of breath; Start 08/12/18 at 09:30 Ipratropium [place] (Atrovent 0.02% (Neb)) 0.5 mg Q6HWA RESP THERAPY HHN ; Start 08/12/18 at 14:00 Ipratropium [place] (Atrovent 0.02% (Neb)) 0.5 mg Q4H RESP THERAPY PRN HHN SHORTNESS OF BREATH; Start 08/12/18 at 09:30 Budesonide (Pulmicort (Neb)) 0.5 mg BID RESP THERAPY HHN ; Start 08/12/18 at 20:00 Allergies: Coded Allergies: No Known Allergy (Unverified , 08/12/18) Past Surgical History Past Surgical Hx: no surgical history Social History Alcohol Use: none Smoking Status: Never smoker Drug Use: none Other Social History She is a 4 para 4 normal deliveries Exam/Review of Systems Exam Vitals Vital Signs Date Temp Pulse Resp B/P (MAP) Pulse Ox O2 O2 Flow FiO2 Time Delivery Rate 08/12/18 99 40 14:04 08/12/18 125 22 94/74 (81) High Flow 14:00 08/12/18 97.4 12:00 08/12/18 20.0 08:00 Intake and Output 08/11/18 08/11/18 08/12/18 1515:00 23:00 07:00 IntakeIntake Total 1220 ml OutputOutput Total 8085 ml BalanceBalance -6865 ml Constitutional: alert (Comfortable at the present) Psych: no complaints Head: normocephalic Eyes: nl conjunctiva ENMT: nl external ears & nose Neck: supple Respiratory: normal air movement; No wheezing Cardiovascular: regular rate and rhythm, other (Tachycardic) Gastrointestinal: soft Genitourinary - Female: other (Pelvic exam: No mass no discharge but the cervix felt little bit thick and bumpy.) Musculoskeletal: nl extremities to inspection Extremities: No calf tenderness Neurological: nl mental status Skin: nl turgor Results Result Diagram: 08/12/18 0419 08/12/18 1329 Results 24hrs Laboratory Tests Test 08/11/18 19:30 08/11/18 20:31 08/11/18 20:44 08/11/18 20:59 White Blood 9.2 # Count Red Blood Count 3.79 L Hemoglobin 10.2 L Hematocrit 31.7 #L Mean Corpuscular 83.6 Volume Mean Corpuscular 26.9 L Hemoglobin Mean Corpuscular 32.2 Hemoglobin Rhona nt Red Cell 13.4 Distribution Width Platelet Count 207 Mean Platelet 9.7 Volume Immature 0.200 Granulocytes % Neutrophils % 87.8 H Lymphocytes % 6.8 L Monocytes % 5.1 Eosinophils % 0.0 Basophils % 0.1 Nucleated Red 0.0 Blood Cells % Immature 0.020 Granulocytes # Neutrophils # 8.1 H Lymphocytes # 0.6 L Monocytes # 0.5 Eosinophils # 0.0 Basophils # 0.0 Nucleated Red 0.0 Blood Cells # Prothrombin Time 16.8 #H Prothrombin Time 1.3 Ratio INR 1.35 International Normalized Ratio Activated 31.6 Partial Thrombop last Time Sodium Level 139 Potassium Level 6.5 *H Chloride Level 107 Carbon Dioxide 9 *L Level Anion Gap 23 H Blood Urea 109 H Nitrogen Creatinine 20.18 H Est Glomerular 2 L Filtrat Rate mL/min Glucose Level 114 Hemoglobin A1c 5.3 Calcium Level 8.8 Total Bilirubin 0.2 Direct Bilirubin 0.00 Indirect 0.2 Bilirubin Aspartate Amino 11 L Transf (AST/SGOT ) Alanine 14 Aminotransferase (ALT/SGPT) Alkaline 91 Phosphatase Troponin I 0.021 B-Type 5160 H Natriuretic Peptide Total Protein 7.4 Albumin 3.7 Globulin 3.70 H Albumin/Globulin 1.00 Ratio Free Thyroxine 1.33 Serum HCG, NEGATIVE Qualitative Bedside Glucose 133 234 H Blood Gas Blood arterial Specimen Source Arterial Blood 08/11/2018 9:10:51 Date Drawn PM Arterial Blood 7.312 L pH (Temp corrected) Arterial Blood 23.3 L pCO2 (Temp correct) Arterial Blood 77.8 L pO2 (Temp corrected) Arterial Blood 11.5 L HCO3 Arterial Blood -13.1 L Base Excess Arterial Blood 94.0 L Oxygen Saturatio n Pino Test ACCEPTAB Arterial Blood Left Radial Gas Puncture Site Arterial 0.3 Blood Carboxyhem oglobin Arterial Blood 0.3 Methemoglobin Blood Gas A-a O2 611.9 H Differential Oxyhemoglobin 93.4 Percent Blood Gas 37.0 Temperature Blood Gas Actual 35 Respiration Rate Blood Gas HFNC Modality FiO2 100.[address] [facility] Notified Whom Blood Gas 08/11/2018 9:20:28 Notified Time PM Test 08/11/18 23:33 08/12/18 01:54 08/12/18 04:19 08/12/18 05:19 Urine Color YELLOW Urine Clarity SLIGHTLY CLOUDY A Urine pH 7.0 Urine Specific 1.009 [place] Burn Urine Ketones TRACE A Urine Nitrite NEGATIVE Urine Bilirubin NEGATIVE Urine NEGATIVE Urobilinogen Urine Leukocyte NEGATIVE Esterase Urine > 182 H Microscopic RBC Urine 6 H Microscopic WBC Urine Squamous FEW Epithelial Cells Urine Bacteria FEW A Urine Hemoglobin 3+ H Urine Random 65.59 Creatinine Urine Random 110 H Sodium Urine Glucose NEGATIVE Urine Total 28.0 H Protein Lactic Acid 2.4 *H 2.0 Level White Blood 12.3 #H Count Red Blood Count 4.88 # Hemoglobin 12.8 # Hematocrit 39.5 # Mean Corpuscular 80.9 L Volume Mean Corpuscular 26.2 L Hemoglobin Mean Corpuscular 32.4 Hemoglobin Rhona nt Red Cell 13.3 Distribution Width Platelet Count 273 # Mean Platelet 10.1 Volume Immature 0.300 Granulocytes % Neutrophils % 91.3 H Lymphocytes % 4.6 L Monocytes % 3.7 Eosinophils % 0.0 Basophils % 0.1 Nucleated Red 0.0 Blood Cells % Immature 0.040 H Granulocytes # Neutrophils # 11.2 H Lymphocytes # 0.6 L Monocytes # 0.5 Eosinophils # 0.0 Basophils # 0.0 Nucleated Red 0.0 Blood Cells # Sodium Level 144 Potassium Level 4.6 Chloride Level 106 Carbon Dioxide 16 L Level Anion Gap 22 H Blood Urea 79 #H Nitrogen Creatinine 9.90 #H Est Glomerular 5 L Filtrat Rate mL/min Glucose Level 187 Hemoglobin A1c 5.0 Calcium Level 11.8 #H Phosphorus Level 8.7 H Magnesium Level 1.9 Triglycerides 82 Level Cholesterol 181 Level LDL Cholesterol, 122 Calculated HDL Cholesterol 43 Cholesterol/HDL 4.2 Ratio Thyroid 1.080 Stimulating Hormone (TSH) Lipase 104 Test 08/12/18 09:08 08/12/18 13:29 Lactic Acid 1.3 2.3 *H Level Sodium Level 143 Potassium Level 4.6 Chloride Level 105 Carbon Dioxide 25 Level Anion Gap 13 # Blood Urea 51 H Nitrogen Creatinine 3.08 #H Est Glomerular 18 L Filtrat Rate mL/min Glucose Level 207 Calcium Level 10.2 Medications Medication Current Medications Dextrose (D50w Syringe) ONCE PRN IV DECREASED GLUCOSE; Start 08/11/18 at 20:30; Stop 08/12/18 at 20:29 IV Flush (NS 3 ml) 3 ml PER PROTOCOL IV ; Start 08/11/18 at 22:30 Ondansetron HCl (Zofran Inj) 4 mg Q6H PRN IV NAUSEA/VOMITING Last administered on 08/12/18at 01:06; Admin Dose 4 MG; Start 08/11/18 at 22:30 Acetaminophen (Tylenol Tab) 650 mg Q6H PRN PO .PAIN 1-3 OR TEMP; Start 08/11/18 at 22:30 Acetaminophen/ Hydrocodone Bitart ([place] (5/325)) 1 tab Q6H PRN PO .MOD PAIN 4- 6; Start 08/11/18 at 22:30 Morphine Sulfate (morphine) 2 mg Q4H PRN IV .SEVERE PAIN 7-10 Last administered on 08/12/18at 14:24; Admin Dose 2 MG; Start 08/11/18 at 22:30 Docusate Sodium (Colace) 100 mg Q12H PRN PO .CONSTIPATION; Start 08/11/18 at 22:30 Magnesium Hydroxide (Milk Of Mag) 30 ml DAILY PRN PO .CONSTIPATION; Start 08/11/18 at 22:30 Lorazepam (Ativan) 0.5 mg Q6H PRN IV ANXIETY Last administered on 08/12/18at 01:58; Admin Dose 0.5 MG; Start 08/11/18 at 22:30 Hydralazine HCl (Apresoline) 10 mg Q6H PRN IV ELEVATED BLOOD PRESSURE; Start 08/11/18 at 22:30 Nitroglycerin (Nitroglycerin (Sl Tab) 0.4 Mg) 1 tab Q5M PRN SL ANGINA; Start 08/11/18 at 22:30 Cefepime HCl 50 ml @ 100 mls/hr Q12 IVPB Last administered on 08/12/18at 11:21; Admin Dose 100 MLS/HR; Start 08/12/18 at 09:00 Levalbuterol (Xopenex Neb) 1.25 mg Q6H RESP THERAPY HHN ; Start 08/12/18 at 14:00 Levalbuterol (Xopenex Neb) 1.25 mg Q6H RESP THERAPY PRN HHN shortness of breath; Start 08/12/18 at 09:30 Ipratropium [place] (Atrovent 0.02% (Neb)) 0.5 mg Q6HWA RESP THERAPY HHN ; Start 08/12/18 at 14:00 Ipratropium [place] (Atrovent 0.02% (Neb)) 0.5 mg Q4H RESP THERAPY PRN HHN SHORTNESS OF BREATH; Start 08/12/18 at 09:30 Budesonide (Pulmicort (Neb)) 0.5 mg BID RESP THERAPY HHN ; Start 08/12/18 at 20:00 KIRBY PHILLIP MD Aug 12, 2018 14:38
[2018-08-12] MEDS: HYDROCODONE/APAP (5/325) TAB PO PRN (14:55)
[2018-08-12] MEDS: BUDESONIDE (NEB) 0.5MG/2ML AMP HHN SCH (19:27)
[2018-08-13] VITALS (25 sets, daily range): BP systolic 77–111; BP diastolic 26–83; PULSE 81–136; RESP 11–24
[2018-08-13] MEDS: morphine 2 MG INJ IV PRN ×2 (01:08→01:09)
[2018-08-13] MEDS: LORAZEPAM 2 MG INJ IV PRN (01:19)
[2018-08-13] MEDS: LEVALBUTEROL (NEB) 1.25 MG/0.5 ML AMP HHN SCH ×4 (01:39→19:54)
[2018-08-13] MEDS ORDERED: FUROSEMIDE 40 MG INJ IV ONE (07:30)
[2018-08-13] MEDS ORDERED: MAGNESIUM SULFATE 2 GM/50 ML 50 ML IVPB ONE (07:30)
[2018-08-13] MEDS: IPRATROPIUM (NEB) 0.5 MG/2.5 ML AMP HHN SCH ×3 (07:47→19:54)
[2018-08-13] MEDS: BUDESONIDE (NEB) 0.5MG/2ML AMP HHN SCH ×2 (07:47→19:54)
--- NOTE | 2018-08-13 08:10 | PN ---
DATE: 08/13/2018 SUBJECTIVE: The patient is in serious but stable condition. The patient is clinically improving. U rinary output has been excellent. The patient remains on high flow oxygen. No other acute events no oswaldo. No hemoptysis, hematemesis or hematochezia. OBJECTIVE: VITAL SIGNS: Blood pressure is 125/76, respirations 16, pulse 72, temperature 98.6. HEENT: Head is normocephalic. NECK: Supple. HEART: Regular rate. LUNGS: Show diminished breath sounds at the base. ABDOMEN: Soft, nontender to palpation without rebound or guarding. EXTREMITIES: Negative for clubbing, cyanosis. Trace edema. DERMATOLOGIC: No rashes. MUSCULOSKELETAL: No joint effusion. NEUROLOGIC: No change in exam. MEDICATIONS: The patient's medications have been reviewed. LABORATORY DATA: Has been reviewed. IMAGING STUDIES: Have been reviewed. ASSESSMENT AND PLAN: 1. Nonoliguric acute kidney injury with previous baseline creatinine 0.76 mg/dL. Etiology of MITCHEL is secondary to obstructive uropathy due to bladder outlet syndrome. The patient's renal function has significantly improved after Gates catheter placement. At this point, continue current treatment fernanda n. Continue supportive care, renally dose all meds, avoid nephrotoxins, monitor electrolytes closely . 2. Bilateral hydroureteronephrosis secondary to urinary retention. The patient as stated above had a Gates catheter placed with clinical improvement. Will continue to monitor. Follow up with urology . 3. Hyperkalemia, resolved. 4. Metabolic acidosis secondary to acute kidney injury, resolving. 5. Acute hypoxemic respiratory failure secondary to pulmonary edema, likely due to acute kidney inju ry. The patient's respiratory status is stable, slowly improving. Continue to monitor. Continue di uretic therapy, monitor closely. Follow up with pulmonary. 6. Anemia. Monitor hemoglobin and hematocrit levels. 7. Hypertension. Blood pressure is improved. Continue to monitor. 8. Encephalopathy, etiology is toxic metabolic, improving. 9. Mineral bone disorder, monitor calcium and phosphorus levels. 10. History of deaf mute. Dictated By: MIGUEL AGUILAR/[place] Conf#: [id number] DID#: [id number]
[2018-08-13] MEDS: CEFEPIME 1GM/50 ML (PMX) 50 ML IVPB SCH ×3 (08:11→21:09)
--- NOTE | 2018-08-13 09:09 | PN ---
Date/Time of Note Date/Time of Note DATE: 08/13/18 TIME: 09:05 Objective Vitals Vital Signs Date Temp Pulse Resp B/P (MAP) Pulse Ox O2 O2 Flow FiO2 Time Delivery Rate 08/13/18 98 35 08:07 08/13/18 98.3 102 16 111/78 High Flow 08:00 (89) 08/13/18 20.0 07:53 Intake and Output 08/12/18 08/12/18 08/13/18 1515:00 23:00 07:00 IntakeIntake Total 250 ml 550 ml 400 ml OutputOutput Total 1450 ml 885 ml 900 ml BalanceBalance -1200 ml -335 ml -500 ml Results Result Diagram: 08/13/1851108/13/18511 Medications Medications Current Medications IV Flush (NS 3 ml) 3 ml PER PROTOCOL IV ; Start 08/11/18 at 22:30 Ondansetron HCl (Zofran Inj) 4 mg Q6H PRN IV NAUSEA/VOMITING Last administered on 08/12/18at 01:06; Admin Dose 4 MG; Start 08/11/18 at 22:30 Acetaminophen (Tylenol Tab) 650 mg Q6H PRN PO .PAIN 1-3 OR TEMP; Start 08/11/18 at 22:30 Acetaminophen/ Hydrocodone Bitart ([place] (5/325)) 1 tab Q6H PRN PO .MOD PAIN 4- 6 Last administered on 08/12/18at 14:55; Admin Dose 1 TAB; Start 08/11/18 at 22:30 Morphine Sulfate (morphine) 2 mg Q4H PRN IV .SEVERE PAIN 7-10 Last administered on 08/13/18at 01:09; Admin Dose 2 MG; Start 08/11/18 at 22:30 Docusate Sodium (Colace) 100 mg Q12H PRN PO .CONSTIPATION; Start 08/11/18 at 22:30 Magnesium Hydroxide (Milk Of Mag) 30 ml DAILY PRN PO .CONSTIPATION; Start 08/11/18 at 22:30 Lorazepam (Ativan) 0.5 mg Q6H PRN IV ANXIETY Last administered on 08/13/18at 01:19; Admin Dose 0.5 MG; Start 08/11/18 at 22:30 Hydralazine HCl (Apresoline) 10 mg Q6H PRN IV ELEVATED BLOOD PRESSURE; Start 08/11/18 at 22:30 Nitroglycerin (Nitroglycerin (Sl Tab) 0.4 Mg) 1 tab Q5M PRN SL ANGINA; Start 08/11/18 at 22:30 Levalbuterol (Xopenex Neb) 1.25 mg Q6H RESP THERAPY HHN Last administered on at 07:47; Admin Dose 1.25 MG; Start 08/12/18 at 14:00 Levalbuterol (Xopenex Neb) 1.25 mg Q6H RESP THERAPY PRN HHN shortness of breath; Start 08/12/18 at 09:30 Ipratropium [place] (Atrovent 0.02% (Neb)) 0.5 mg Q6HWA RESP THERAPY HHN Last administered on 08/13/18at 07:47; Admin Dose 0.5 MG; Start 08/12/18 at 14:00 Ipratropium [place] (Atrovent 0.02% (Neb)) 0.5 mg Q4H RESP THERAPY PRN HHN SHORTNESS OF BREATH; Start 08/12/18 at 09:30 Budesonide (Pulmicort (Neb)) 0.5 mg BID RESP THERAPY HHN Last administered on 08/13/18at 07:47; Admin Dose 0.5 MG; Start 08/12/18 at 20:00 Magnesium Sulfate 50 ml @ 25 mls/hr ONCE ONCE IVPB Last administered on 08/13/18at 08:10; Admin Dose 25 MLS/HR; Start 08/13/18 at 07:30; Stop 08/13/18 at 09:29 Cefepime HCl 50 ml @ 100 mls/hr Q8 IVPB ; Start 08/13/18 at 14:00 VTE Prophylaxis Risk score (from Nsg)>0 risk: 1 SCD applied (from Nsg): Yes Lines/Catheters IV Catheter Type: Gates in Place: No Assessment/Plan Hospital Course Subjective Patient feeling even better than yesterday, still some mild left flank pain Objective Physical exam General: Patient is laying in bed and answers questions appropriately, patient is deaf and mute Mentation: Patient is alert and oriented 4, Head: Normocephalic atraumatic Eyes: EOMI, pupils reactive to light Neck: Supple, nontender, midline Respiratory: Coarse to auscultation bilaterally Cardiovascular: regular rate, no obvious murmurs Gastrointestinal: Mild left flank tenderness to palpation, bowel sounds heard. Neurological: Moves all extremities spontaneously Skin: No new skin lesions Assessment and plan Acute renal failure, resolved -Possibly secondary to bladder outlet syndrome per urology and nephrology -Likely secondary to obstruction -Gates catheter, continue to drain, urology recognitions appreciated -Nephrology also on board, Shortness of breath, resolving -Likely secondary to pleural effusion which is secondary to volume overload due to acute renal failure, may also have pneumonia, IV antibiotics on board -Pulmonary and nephrology recommendations appreciated -I would suspect patient's shortness of breath will continue to improve as patient's renal function continues to improve. -Titrate off high flow today hopefully Questionable pneumonia -IV antibiotic -Monitor closely, this may just be radiographic reading as patient did have pulmonary edema, will titrate off antibiotics as edema clears up. And there is a more clear picture on x-ray. Bilateral hydronephrosis and hydroureter with flank pain -Secondary to above renal failure -Treat pain as needed Anasarca -Secondary to above renal failure Tachycardia, normal sinus -Secondary to above renal failure as well as shortness of breath -Could also be volume depletion as patient has been getting Lasix get rid of excess water, however do not want to worsen edema, monitor right now patient is not symptomatic, will get echocardiogram. Muscle cramps, resolving -Secondary to electrolyte imbalances due to acute renal failure, monitor closely Pancreatic issues on CT -Patient has no epigastric pain -Lipase negative Hypertension -Treat as needed Disposition -Continue ICU care, patient's creatinine is significantly improved however patient still short of breath tachycardic, still on high flow, if able to t itrate off high flow today, monitor overnight and if stable will downgrade tomorrow. -More than 40 minutes of critical time was spent on this evaluation JAK WALSH Aug 13, 2018 09:09
--- NOTE | 2018-08-13 10:05 | CONS ---
Assessment/Plan Assessment/Plan Assessment/Plan (Daily) Chest x-ray showing marked improvement in pulmonary edema. Assessment and recommendations; 1. Patient admitted with hypoxemia due to element of pulmonary edema from acute renal failure due to bladder outlet obstruction causing bilateral hydronephrosis with marked overall improvement in all parameters, the patient has been able to diurese after placement of Gates catheter. 2. History of congenital deafness. Continue current supportive care. Consider transfer to medical floor. Consultation Date/Type/Reason Admit Date/Time Aug 11, 2018 at 21:43 Initial Consult Date 08/12/18 Type of Consult Pulmonary Patient is a 27-year-old lady who was admitted because of acute renal failure. Patient was seen in outpatient clinic and serum creatinine was 18. Patient has been admitted to ICU and started on-nasal cannula, a Gates catheter was put in which drained about 4 L of urine. By the time I saw her patient remains awake and alert and does not appear to be in any distress whatsoever shortness of breath is improving. Denies any fever or chills. Any abdominal pain, nausea vomiting. Past medical history; 1. History of being deaf and mute. Medications; reviewed. Allergies; none. Family history; noncontributory. Patient does have a supportive family. Occupational history; patient is on disability. Social history; noncontributory. Review of systems; denies any headache, shortness of breath is improving. Any coughing, wheezing, hemoptysis or any sputum production. Denies any fever or chills. Any abdominal pain, nausea vomiting. Any melena or hematochezia. General exam; young woman, awake alert, currently in no distress. On high flow nasal cannula at 80% FiO2. Requesting Provider: JAK WALSH Date/Time of Note DATE: 08/13/18 TIME: 10:03 24 HR Interval Summary Free Text/Dictation Patient's condition is markedly improved. Denies any shortness of breath any coughing, wheezing, hemoptysis. General exam; young woman, awake alert, currently in no distress. Exam/Review of Systems Exam Vitals Vital Signs Date Temp Pulse Resp B/P (MAP) Pulse Ox O2 O2 Flow FiO2 Time Delivery Rate 08/13/18 98 35 08:07 08/13/18 98.3 102 16 111/78 High Flow 08:00 (89) 08/13/18 20.0 07:53 Intake and Output 08/12/18 08/12/18 08/13/18 1515:00 23:00 07:00 IntakeIntake Total 250 ml 550 ml 400 ml OutputOutput Total 1450 ml 885 ml 900 ml BalanceBalance -1200 ml -335 ml -500 ml Exam H EENT exam; supple neck, no JVD. No lymphadenopathy. Midline trachea. No thyromegaly. Pharynx is clear. Patient has good dentition. No neck masses. Chest exam; clear to auscultation. S1-S2 audible, no murmurs. Regular rhythm. Abdomen exam; soft, nontender. No organomegaly. Bowel sounds audible. Extremity exam; no peripheral edema clubbing. 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 Results Result Diagram: 08/13/1851108/13/18 0512 Results 24hrs Laboratory Tests Test 08/12/18 13:29 08/13/18 05:06 08/13/18 05:12 Sodium Level 143 140 Potassium Level 4.6 4.5 Chloride Level 105 104 Carbon Dioxide Level 25 27 Anion Gap 13 # 9 Blood Urea Nitrogen 51 H 23 #H Creatinine 3.08 #H 0.81 # Est Glomerular Filtrat Rate mL/min 18 L > 60 Glucose Level 207 109 # Lactic Acid Level 2.3 *H Calcium Level 10.2 9.3 Phosphorus Level 3.1 # Magnesium Level 1.6 L White Blood Count 7.5 # Red Blood Count 4.27 Hemoglobin 11.4 L Hematocrit 35.6 L Mean Corpuscular Volume 83.4 Mean Corpuscular Hemoglobin 26.7 L Mean Corpuscular Hemoglobin Concent 32.0 Red Cell Distribution Width 13.2 Platelet Count 184 # Mean Platelet Volume 10.3 Immature Granulocytes % 0.300 Neutrophils % 78.1 H Lymphocytes % 11.1 L Monocytes % 9.0 Eosinophils % 1.2 Basophils % 0.3 Nucleated Red Blood Cells % 0.0 Immature Granulocytes # 0.020 Neutrophils # 5.9 Lymphocytes # 0.8 Monocytes # 0.7 Eosinophils # 0.1 Basophils # 0.0 Nucleated Red Blood Cells # 0.0 Medications Medication Current Medications IV Flush (NS 3 ml) 3 ml PER PROTOCOL IV ; Start 08/11/18 at 22:30 Ondansetron HCl (Zofran Inj) 4 mg Q6H PRN IV NAUSEA/VOMITING Last administered on 08/12/18 01:06; Admin Dose 4 MG; Start 08/11/18 at 22:30 Acetaminophen (Tylenol Tab) 650 mg Q6H PRN PO .PAIN 1-3 OR TEMP; Start 08/11/18 at 22:30 Acetaminophen/ Hydrocodone Bitart ([place] (5/325)) 1 tab Q6H PRN PO .MOD PAIN 4- 6 Last administered on 08/12/18at 14:55; Admin Dose 1 TAB; Start 08/11/18 at 22:30 Morphine Sulfate (morphine) 2 mg Q4H PRN IV .SEVERE PAIN 7-10 Last administered on 08/13/18 01:09; Admin Dose 2 MG; Start 08/11/18 at 22:30 Docusate Sodium (Colace) 100 mg Q12H PRN PO .CONSTIPATION; Start 08/11/18 at 22:30 Magnesium Hydroxide (Milk Of Mag) 30 ml DAILY PRN PO .CONSTIPATION; Start 08/11/18 at 22:30 Lorazepam (Ativan) 0.5 mg Q6H PRN IV ANXIETY Last administered on 08/13/18 01 :19; Admin Dose 0.5 MG; Start 08/11/18 at 22:30 Hydralazine HCl (Apresoline) 10 mg Q6H PRN IV ELEVATED BLOOD PRESSURE; Start 08/11/18 at 22:30 Nitroglycerin (Nitroglycerin (Sl Tab) 0.4 Mg) 1 tab Q5M PRN SL ANGINA; Start 08/11/18 at 22:30 Levalbuterol (Xopenex Neb) 1.25 mg Q6H RESP THERAPY HHN Last administered on 08/13/18at 07:47; Admin Dose 1.25 MG; Start 08/12/18 at 14:00 Levalbuterol (Xopenex Neb) 1.25 mg Q6H RESP THERAPY PRN HHN shortness of breath; Start 08/12/18 at 09:30 Ipratropium [place] (Atrovent 0.02% (Neb)) 0.5 mg Q6HWA RESP THERAPY HHN Last administered on 08/13/18at 07:47; Admin Dose 0.5 MG; Start 08/12/18 at 14:00 Ipratropium [place] (Atrovent 0.02% (Neb)) 0.5 mg Q4H RESP THERAPY PRN HHN SHORTNESS OF BREATH; Start 08/12/18 at 09:30 Budesonide (Pulmicort (Neb)) 0.5 mg BID RESP THERAPY HHN Last administered on 08/13/18at 07:47; Admin Dose 0.5 MG; Start 08/12/18 at 20:00 Cefepime HCl 50 ml @ 100 mls/hr Q8 IVPB ; Start 08/13/18 at 14:00 TIFFANIE MAYER Aug 13, 2018 10:05
--- NOTE | 2018-08-13 16:15 | RADRPT ---
Echocardiogram Report Patient Name: TANYA KHANPatient ID: [id number] : 1990 (27y 11m)Study Date: 08/13/2018 11:28:16 AM Gender: FAccession #: [id number] Tech: [facility] [place] Location: [facility] Ref.Physician: JAK WALSH Height(Cm): 152 BSA: 1.84Weight(Kg): 79.8 Quality: AdequateOrder Physician: JAK WALSH Account #: Procedures: Echocardiographic Report: Transthoracic echocardiogram with complete 2D, M-Mode, and doppler examination. Indications: Tachycardia. Measurements: 2D/M Mode Doppler Measurement Value Normal Range Measurement Value Normal Range LVIDd 2D 4.3 [ 3.8 - 5.2 ] cm AV Peak Roman 1.3 [ 100.0 - 170.0 ] cm/sec LVIDs 2D 3.3 [ 2.2 - 3.5 ] cm AV Peak PG 7.0 [ 2.0 - 9.0 ] mmHg LVPWd 2D 0.9 [ 0.6 - 0.9 ] cm LVOT Peak Roman 1.2 [ 70.0 - 110.0 ] cm/sec IVSd 2D 0.9 [ 0.6 - 0.9 ] cm LVOT Peak PG 6.0 [ 2.0 - 6.0 ] mmHg AoR Diam 2D 2.6 [ 2.3 - 3.1 ] cm Lat E` Roman 0.1 [ 10.0 - 15.0 ] cm/sec EDV 2D 82.2 [ 46.0 - 106.0 ] ml Med E` Roman 0.1 cm/sec ESV 2D 45.4 [ 14.0 - 42.0 ] ml PV Peak Roman 0.8 [ 40.0 - 80.0 ] cm/sec EF 2D 44.8 [ 54.0 - 74.0 ] percent PV Peak PG 2.0 mmHg LA Dimen 2D 2.8 [ 2.7 - 3.8 ] cm Findings: Left Ventricle: Normal left ventricular cavity size. Normal left ventricular wall thickness. Moderate left ventricular systolic dysfunction. Ejection fraction is visually estimated at 40-45 %. Tissue Doppler/Mitral Doppler indices are indeterminate in this study due to the presence of tachycardia throughout exam. There is global hypokinesis involving all segments of the left ventricle. Right Ventricle: Normal right ventricular size. Normal right ventricular systolic function. Left Atrium: The left atrium is normal in size. Right Atrium: The right atrium is normal in size. Atrial Septum: Normal atrial septum. Mitral Valve: Normal appearance and function of the mitral valve with trace physiologic regurgitation. Aortic Valve: Normal appearance of the aortic valve. No significant aortic stenosis or insufficiency. Tricuspid Valve: Normal appearance and function of the tricuspid valve with trace physiologic regurgitation. Pulmonic Valve: Normal pulmonic valve appearance. No evidence of pulmonic regurgitation. Pericardium: Trivial pericardial effusion. No echocardiographic evidence to suggest pericardial tamponade. Aorta: Normal aortic root. IVC: Normal size and normal respiratory collapse consistent with normal right atrial pressure. Pulmonary Artery: Normal pulmonary artery size. Conclusions: Normal left ventricular cavity size. Normal left ventricular wall thickness. Moderate left ventricular systolic dysfunction. Ejection fraction is visually estimated at 40-45 % but difficult to assess due to patient's tachycardia during the study. Tissue Doppler/Mitral Doppler indices are indeterminate in this study due to the presence of tachycardia throughout exam. There is global hypokinesis involving all segments of the left ventricle. The left atrium is normal in size. Normal appearance and function of the mitral valve with trace physiologic regurgitation. Normal appearance of the aortic valve. No significant aortic stenosis or insufficiency. Normal appearance and function of the tricuspid valve with trace physiologic regurgitation. Electronically Signed By: Joe Preston 2018-08-13 16:15:30 PDT
[2018-08-13] MEDS: HYDROCODONE/APAP (5/325) TAB PO PRN (21:06)
[2018-08-14] VITALS (37 sets, daily range): BP systolic 94–116; BP diastolic 65–81; PULSE 91–123; RESP 11–42
[2018-08-14] MEDS: LEVALBUTEROL (NEB) 1.25 MG/0.5 ML AMP HHN SCH ×4 (01:25→21:32)
[2018-08-14] MEDS: CEFEPIME 1GM/50 ML (PMX) 50 ML IVPB SCH ×3 (06:52→22:04)
[2018-08-14] MEDS: BUDESONIDE (NEB) 0.5MG/2ML AMP HHN SCH ×2 (08:30→21:31)
[2018-08-14] MEDS: IPRATROPIUM (NEB) 0.5 MG/2.5 ML AMP HHN SCH ×3 (08:30→21:31)
--- NOTE | 2018-08-14 08:55 | PN ---
DATE: 08/11/2018 SUBJECTIVE: The patient is stable. No events overnight. OBJECTIVE: VITAL SIGNS: Blood pressure is 102/79, respirations 24, pulse 93, temperature 98.2. HEENT: Head is normocephalic. NECK: Supple. HEART: Regular rate. LUNGS: Show diminished breath sounds at the base. ABDOMEN: Soft, nontender to palpation without rebound or guarding. EXTREMITIES: Negative for clubbing, cyanosis, no edema. DERMATOLOGIC: No rashes. MUSCULOSKELETAL: No joint effusion. NEUROLOGIC: No change in exam. MEDICATIONS: Reviewed. LABORATORY DATA: Reviewed. IMAGING STUDIES: Reviewed. The patient's 2D echo was reviewed. ASSESSMENT AND PLAN: 1. Nonoliguric acute kidney injury with previous baseline creatinine of 0.76 mg/dL. Etiology of acu te kidney injury was secondary to obstructive uropathy due to urinary retention, possible bladder out let syndrome. The patient's renal function has improved now back to baseline. At this point, we josee l continue current treatment plans, supportive care, renally dose all medications. 2. Bilateral hydroureteronephrosis secondary to urinary retention. Improved after Gates catheter pl acement. Continue to monitor. Follow up with urology. 3. Volume overload secondary to acute kidney injury. Volume status is improved. The patient is sta tus post diuretic therapy. Appears near euvolemic status. We will monitor closely. We will give in termittent diuretic therapy as needed. 4. Acute hypoxemic respiratory failure secondary to pulmonary edema. The patient is clinically impr oving, currently off high flow oxygen. We will continue to monitor. Continue intermittent diuretic therapy as needed. 5. Hypertension. Blood pressure is improved. 6. Encephalopathy, resolved. 7. Mineral bone disorder. Monitor calcium and phosphorus levels. 8. Status post hyperkalemia. 9. Metabolic acidosis, resolved. 10. Diastolic heart failure. The patient's 2D echo was reviewed. Continue to monitor. Get a cardi ology evaluation. Dictated By: MIGUEL BENSON DO NR/NTS Conf#: [id number] DID#: [id number] CC: LISSETTE DAVIS; [place] SANTAMARIA MD; KIRBY PHILLIP MD;*EndCC*
--- NOTE | 2018-08-14 09:22 | PN ---
Date/Time of Note Date/Time of Note DATE: 08/14/18 TIME: 09:14 Assessment/Plan VTE Prophylaxis Risk score (from Nsg)>0 risk: 1 SCD applied (from Nsg): Yes Pharmacological prophylaxis: NA/contraindicated Pharm contraindication: low risk/ambulating Lines/Catheters IV Catheter Type (from Nrsg): Peripheral IV Urinary Cath still in place: Yes Reason Cath still needed: urinary retention Assessment/Plan Assessment/Plan 27 yo woman, deaf and mute, history of HTN presents with 1 weeks of fevers, chills, night sweats, fatigue; found to have MITCHEL from urinary outflow obstruction. #Acute renal failure, resolved -Possibly secondary to bladder outlet syndrome per urology and nephrology -Gates catheter, continue to drain, urology recognitions appreciated -Nephrology also on board, #Shortness of breath, resolving #Hypoxemia, resolved. -Likely secondary to pleural effusion which is secondary to volume overload due to acute renal failure, may also have pneumonia, IV antibiotics on board -Pulmonary and nephrology recommendations appreciated -On admission required high flow oxygen, now saturating mid 90s on room air. #Questionable pneumonia -IV antibiotic -Monitor closely, this may just be radiographic reading as patient did have pulmonary edema, will titrate off antibiotics as edema clears up. And there is a more clear picture on x-ray. #Bilateral hydronephrosis and hydroureter with flank pain -Secondary to above renal failure -Treat pain as needed -Gates removal per urology. #Anasarca -Secondary to above renal failure -Now resolved. #Tachycardia, normal sinus -Secondary to above renal failure as well as shortness of breath -Could also be volume depletion as patient has been getting Lasix get rid of excess water, however do not want to worsen edema, monitor right now patient is not symptomatic, - Transfer to telemetry -Echo unremarkable. #Muscle cramps, resolving -Secondary to electrolyte imbalances due to acute renal failure, monitor closely #Pancreatic issues on CT -Patient has no epigastric pain -Lipase negative #Hypertension -Treat as needed #Disposition -Downgrade to telemetry (due to tachycardia to 125s) More than 40 minutes of critical time was spent on this evaluation Result Diagram: 08/14/18 0459 08/14/18 0459 Subjective 24 Hr Interval Summary Free Text/Dictation Had extensive conversation with patient using video ASL consulting psychiatrist. Patient continues to complain of muscle-cramp like pain in her bilateral lower back, bilateral calfs, and a bit in her abdomen. She is reassured that her urine is getting more clear and is interested in having her Gates out. I told her the results of the pelvic US and TTE, which were normal. She has been bedridden while in the ICU and has not tried ambulating. Got breathing treatment this morning; afterwards she is saturating mid-90s on room air. Exam/Review of Systems Exam Vitals Vital Signs Date Temp Pulse Resp B/P (MAP) Pulse Ox O2 O2 Flow FiO2 Time Delivery Rate 08/14/18 4.0 08:34 08/14/18 96 18 99 Nasal 08:34 Cannula 08/14/18 102/79 06:00 (87) 08/14/18 98.2 04:00 08/13/18 35 14:55 Intake and Output 08/13/18 08/13/18 08/14/18 1515:00 23:00 07:00 IntakeIntake Total 1230 ml 1020 ml OutputOutput Total 1450 ml 640 ml 730 ml BalanceBalance -220 ml 380 ml -730 ml Exam General: Patient is laying in bed and answers questions appropriately via sao tomean sign language, patient is deaf and mute Mentation: Patient is alert and oriented 4 Head: Normocephalic atraumatic Eyes: EOMI, pupils reactive to light Neck: Supple, nontender, no lymphadenopathy. Respiratory: Clear to auscultation bilaterally, no rales or crackles Cardiovascular: tachy to 120s, no obvious murmurs Gastrointestinal: Bilateral lower back flank tenderness to palpation. Abdomen soft, nontender, nondistended. Neurological: Moves all extremities spontaneously Skin: No new skin lesions Results Results 24hrs Laboratory Tests Test 08/14/18 04:59 White Blood Count 7.4 Red Blood Count 4.40 Hemoglobin 11.6 L Hematocrit 37.5 Mean Corpuscular Volume 85.2 Mean Corpuscular Hemoglobin 26.4 L Mean Corpuscular Hemoglobin Concent 30.9 L Red Cell Distribution Width 12.8 Platelet Count 191 Mean Platelet Volume 10.3 Immature Granulocytes % 0.300 Neutrophils % 57.3 Lymphocytes % 26.3 Monocytes % 10.7 Eosinophils % 5.3 Basophils % 0.1 Nucleated Red Blood Cells % 0.0 Immature Granulocytes # 0.020 Neutrophils # 4.2 Lymphocytes # 1.9 Monocytes # 0.8 Eosinophils # 0.4 Basophils # 0.0 Nucleated Red Blood Cells # 0.0 Sodium Level 139 Potassium Level 4.4 Chloride Level 99 Carbon Dioxide Level 31 Anion Gap 9 Blood Urea Nitrogen 21 H Creatinine 0.78 Est Glomerular Filtrat Rate mL/min > 60 Glucose Level 103 Calcium Level 9.1 Phosphorus Level 3.7 Magnesium Level 2.1 Medications Medication Current Medications IV Flush (NS 3 ml) 3 ml PER PROTOCOL IV ; Start 08/11/18 at 22:30 Ondansetron HCl (Zofran Inj) 4 mg Q6H PRN IV NAUSEA/VOMITING Last administered on 08/12/18 01:06; Admin Dose 4 MG; Start 08/11/18 at 22:30 Acetaminophen (Tylenol Tab) 650 mg Q6H PRN PO .PAIN 1-3 OR TEMP; Start 08/11/18 at 22:30 Acetaminophen/ Hydrocodone Bitart ([place] (5/325)) 1 tab Q6H PRN PO .MOD PAIN 4- 6 Last administered on 08/13/18at 21:06; Admin Dose 1 TAB; Start 08/11/18 at 22:30 Morphine Sulfate (morphine) 2 mg Q4H PRN IV .SEVERE PAIN 7-10 Last administered on 08/13/18 01:09; Admin Dose 2 MG; Start 08/11/18 at 22:30 Docusate Sodium (Colace) 100 mg Q12H PRN PO .CONSTIPATION; Start 08/11/18 at 22:30 Magnesium Hydroxide (Milk Of Mag) 30 ml DAILY PRN PO .CONSTIPATION; Start 08/11/18 at 22:30 Lorazepam (Ativan) 0.5 mg Q6H PRN IV ANXIETY Last administered on 08/13/18 01:19; Admin Dose 0.5 MG; Start 08/11/18 at 22:30 Hydralazine HCl (Apresoline) 10 mg Q6H PRN IV ELEVATED BLOOD PRESSURE; Start 08/11/18 at 22:30 Nitroglycerin (Nitroglycerin (Sl Tab) 0.4 Mg) 1 tab Q5M PRN SL ANGINA; Start 08/11/18 at 22:30 Levalbuterol (Xopenex Neb) 1.25 mg Q6H RESP THERAPY HHN Last administered on 08/14/18 08:30; Admin Dose 1.25 MG; Start 08/12/18 at 14:00 Levalbuterol (Xopenex Neb) 1.25 mg Q6H RESP THERAPY PRN HHN shortness of breath; Start 08/12/18 at 09:30 Ipratropium [place] (Atrovent 0.02% (Neb)) 0.5 mg Q6HWA RESP THERAPY HHN Last administered on 08/14/18 08:30; Admin Dose 0.5 MG; Start 08/12/18 at 14:00 Ipratropium [place] (Atrovent 0.02% (Neb)) 0.5 mg Q4H RESP THERAPY PRN HHN SHORTNESS OF BREATH; Start 08/12/18 at 09:30 Budesonide (Pulmicort (Neb)) 0.5 mg BID RESP THERAPY HHN Last administered on 08/14/18 08:30; Admin Dose 0.5 MG; Start 08/12/18 at 20:00 Cefepime HCl 50 ml @ 100 mls/hr Q8 IVPB Last administered on 08/14/18at 06:52; Admin Dose 100 MLS/HR; Start 08/13/18 at 14:00 [place] SANTAMARIA MD Aug 14, 2018 09:22
[2018-08-14] MEDS: HYDROCODONE/APAP (5/325) TAB PO PRN ×2 (10:40→22:04)
--- NOTE | 2018-08-14 19:59 | CONS ---
Consult Date/Type/Reason Admit Date/Time Aug 11, 2018 at 21:43 Initial Consult Date 08/12/18 Type of Consultation: Urology Reason for Consultation Urinary retention and renal failure Requesting Provider: JAK WALSH Date/Time of Note DATE: 08/14/18 TIME: 19:53 Subjective Patient complains of back pain, she has blood in her urine today Objective Vitals Vital Signs Date Temp Pulse Resp B/P (MAP) Pulse Ox O2 O2 Flow FiO2 Time Delivery Rate 08/14/18 93 18:59 08/14/18 16 99 Nasal 4.0 13:51 Cannula 08/14/18 99/79 (86) 09:00 08/14/18 99.1 08:00 08/13/18 35 14:55 Intake and Output 08/13/18 08/13/18 08/14/18 1515:00 23:00 07:00 IntakeIntake Total 1230 ml 1020 ml OutputOutput Total 1450 ml 640 ml 730 ml BalanceBalance -220 ml 380 ml -730 ml Exam The Gates catheter is draining well and the urine is blood-tinged. Results/Medications Result Diagram: 08/14/18 0459 08/14/18 0459 Results 24 hrs Laboratory Tests Test 08/14/18 04:59 08/14/18 11:34 White Blood Count 7.4 Red Blood Count 4.40 Hemoglobin 11.6 L Hematocrit 37.5 Mean Corpuscular Volume 85.2 Mean Corpuscular Hemoglobin 26.4 L Mean Corpuscular Hemoglobin Concent 30.9 L Red Cell Distribution Width 12.8 Platelet Count 191 Mean Platelet Volume 10.3 Immature Granulocytes % 0.300 Neutrophils % 57.3 Lymphocytes % 26.3 Monocytes % 10.7 Eosinophils % 5.3 Basophils % 0.1 Nucleated Red Blood Cells % 0.0 Immature Granulocytes # 0.020 Neutrophils # 4.2 Lymphocytes # 1.9 Monocytes # 0.8 Eosinophils # 0.4 Basophils # 0.0 Nucleated Red Blood Cells # 0.0 Sodium Level 139 Potassium Level 4.4 Chloride Level 99 Carbon Dioxide Level 31 Anion Gap 9 Blood Urea Nitrogen 21 H Creatinine 0.78 Est Glomerular Filtrat Rate mL/min > 60 Glucose Level 103 Calcium Level 9.1 Phosphorus Level 3.7 Magnesium Level 2.1 Creatine Kinase 229 H Home Meds Active Scripts Naproxen* (Naprosyn*) 500 Mg Tablet, 500 MG PO BID PRN for PAIN AND/OR INFLAMMATION, #30 TAB Prov:VALENTINO SAWANT PA-C 07/14/18 Reported Medications Dextromethorphan Hb-Promethazine Hcl* (Promethazine DM* Syrup) 473 Ml Syrup, 6.25 MG PO Q6H PRN for COUGH for 25 Days 08/12/18 Hydrochlorothiazide* (Hydrochlorothiazide*) 25 Mg Tab, 25 MG PO DAILY for 14 Days, #14 08/12/18 Metoclopramide Hcl* (Metoclopramide Hcl*) 10 Mg Tablet, 10 MG PO DAILY for 10 Days 08/12/18 Discontinued Reported Medications Ferrous Sulfate (Iron) 325 Mg Capsule.er, 325 MG PO, CAP 10/13/16 Vits W-Ca,Fe,Fa(<1MG) ( Vitamins) 1 Tab Tablet, 1 TAB PO DAILY 11/05/14 Discontinued Scripts Docusate Sodium* (Colace*) 100 Mg Capsule, 100 MG PO TID, #30 CAP Prov:VALENTINO SAWANT PA-C 07/14/18 Cephalexin* (Keflex*) 500 Mg Capsule, 500 MG PO TID for 7 Days, CAP Prov:VALENTINO SAWANT PA-C 07/14/18 Medications Current Medications IV Flush (NS 3 ml) 3 ml PER PROTOCOL IV ; Start 08/11/18 at 22:30 Ondansetron HCl (Zofran Inj) 4 mg Q6H PRN IV NAUSEA/VOMITING Last administered on 08/12/18at 01:06; Admin Dose 4 MG; Start 08/11/18 at 22:30 Acetaminophen (Tylenol Tab) 650 mg Q6H PRN PO .PAIN 1-3 OR TEMP; Start 08/11/18 at 22:30 Acetaminophen/ Hydrocodone Bitart ([place] (5/325)) 1 tab Q6H PRN PO .MOD PAIN 4- 6 Last administered on 08/14/18at 10:40; Admin Dose 1 TAB; Start 08/11/18 at 22:30 Morphine Sulfate (morphine) 2 mg Q4H PRN IV .SEVERE PAIN 7-10 Last administered on 08/13/18at 01:09; Admin Dose 2 MG; Start 08/11/18 at 22:30 Docusate Sodium (Colace) 100 mg Q12H PRN PO .CONSTIPATION; Start 08/11/18 at 22:30 Magnesium Hydroxide (Milk Of Mag) 30 ml DAILY PRN PO .CONSTIPATION; Start 08/11/18 at 22:30 Lorazepam (Ativan) 0.5 mg Q6H PRN IV ANXIETY Last administered on 08/13/18at 01:19; Admin Dose 0.5 MG; Start 08/11/18 at 22:30 Hydralazine HCl (Apresoline) 10 mg Q6H PRN IV ELEVATED BLOOD PRESSURE; Start 08/11/18 at 22:30 Nitroglycerin (Nitroglycerin (Sl Tab) 0.4 Mg) 1 tab Q5M PRN SL ANGINA; Start 08/11/18 at 22:30 Levalbuterol (Xopenex Neb) 1.25 mg Q6H RESP THERAPY HHN Last administered on 08/14/18at 13:51; Admin Dose 1.25 MG; Start 08/12/18 at 14:00 Levalbuterol (Xopenex Neb) 1.25 mg Q6H RESP THERAPY PRN HHN shortness of breath; Start 08/12/18 at 09:30 Ipratropium [place] (Atrovent 0.02% (Neb)) 0.5 mg Q6HWA RESP THERAPY HHN Last administered on 08/14/18at 13:51; Admin Dose 0.5 MG; Start 08/12/18 at 14:00 Ipratropium [place] (Atrovent 0.02% (Neb)) 0.5 mg Q4H RESP THERAPY PRN HHN SHORTNESS OF BREATH; Start 08/12/18 at 09:30 Budesonide (Pulmicort (Neb)) 0.5 mg BID RESP THERAPY HHN Last administered on 08/14/18at 08:30; Admin Dose 0.5 MG; Start 08/12/18 at 20:00 Cefepime HCl 50 ml @ 100 mls/hr Q8 IVPB Last administered on 08/14/18at 14:58; Admin Dose 100 MLS/HR; Start 08/13/18 at 14:00 Assessment/Plan Hospital Course (Demo Recall) 27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 The patient did see her primary care physician and was told to come to the emergency room because her creatinine was 18. Creatinine repeated in the emergency room was 20. She had a CT scan of the abdomen and pelvis and that showed bilateral hydroureteronephrosis and distended urinary bladder. A Gates catheter was inserted and over a liter was obtained and the nurse in the ICU tells me that in the emergency room they had 5 L come out and in the ICU 4 L of urine output as well but the patient did receive Lasix 80 mg because her potassium was very high 6.5. This patient serum creatinine was about 0.76 1 months earlier After the insertion of the Gates catheter her renal function started to improve, the creatinine has come down to 9.90 then 3.08. And now 0.78 Since the patient is deaf-mute I had the paper machine supervisor on the computer [facility] help translate to her. I did explain to her the problem related to her urine and kidneys. I answered all of her questions and concerns. After that we decided to culture her urine tonight and remove the Gates catheter tomorrow morning and see if she is able to urinate on her own. Check her postvoid residual was a bladder scan and do straight cath on her for a postvoid residual of 300 mL or if she does not urinate and the bladder scan showing 500 or more mL of urine. KIRBY PHILLIP MD Aug 14, 2018 19:59
[2018-08-15] VITALS (10 sets, daily range): BP systolic 93–117; BP diastolic 55–79; PULSE 90–117; RESP 19–20
[2018-08-15] MEDS: LEVALBUTEROL (NEB) 1.25 MG/0.5 ML AMP HHN SCH ×4 (02:05→20:36)
[2018-08-15] MEDS: CEFEPIME 1GM/50 ML (PMX) 50 ML IVPB SCH ×3 (06:27→21:18)
--- NOTE | 2018-08-15 08:34 | PN ---
DATE: 08/15/2018 SUBJECTIVE: The patient is stable. The patient was transferred from intensive care unit to [facility]. No other acute events noted. No shortness of breath. No hemoptysis, hematemesis or hematochezia . OBJECTIVE: VITAL SIGNS: Blood pressure is 102/67, respirations 19, pulse 96, temperature 97.9. HEENT: Head is normocephalic. NECK: Supple. HEART: Regular rate. LUNGS: Show diminished breath sounds at the base. ABDOMEN: Soft, nontender to palpation without rebound or guarding. EXTREMITIES: Negative for clubbing, cyanosis, no edema. DERMATOLOGIC: No rashes. MUSCULOSKELETAL: No joint effusion. NEUROLOGIC: No change in exam. MEDICATIONS: Reviewed. LABORATORY DATA: Reviewed. ASSESSMENT AND PLAN: 1. Nonoliguric acute kidney injury with previous baseline creatinine of 0.76 mg/dL. Etiology of acu te kidney injury is secondary to obstructive uropathy. The patient's renal function is improved back to baseline. We will continue to monitor. 2. Bilateral hydroureteronephrosis secondary to urinary retention. The patient is clinically improv ed with Gates catheter placement. Gtaes catheter was discontinued. Continue to monitor. Follow up with urology. 3. Volume overload secondary to acute kidney injury, resolved. 4. Acute hypoxemic respiratory failure secondary to pulmonary edema due to acute kidney injury, reso lved. 5. Hypertension. Continue current blood pressure regimen. 6. Encephalopathy, resolved. 7. Mineral bone disorder, monitor calcium and phosphorus levels. 8. Metabolic acidosis, resolved. 9. Diastolic heart failure. The patient's 2D echo was reviewed. Continue to monitor. Dictated By: MIGUEL BENSON DO NR/NTS Conf#: [id number] DID#: [id number] CC: [place] SANTAMARIA MD; KIRBY PHILLIP MD; LISSETTE DAVIS;*EndCC*
[2018-08-15] MEDS: IPRATROPIUM (NEB) 0.5 MG/2.5 ML AMP HHN SCH ×3 (08:43→20:36)
[2018-08-15] MEDS: BUDESONIDE (NEB) 0.5MG/2ML AMP HHN SCH ×2 (08:43→20:36)
[2018-08-15] MEDS: HYDROCODONE/APAP (5/325) TAB PO PRN ×2 (13:59→21:21)
--- NOTE | 2018-08-15 15:03 | PN ---
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 #Acute renal failure, resolved -Possibly secondary to bladder outlet syndrome per urology and nephrology -Now Gates discontinued, current trial of void. #Shortness of breath, resolving #Hypoxemia, resolved. -Likely secondary to pleural effusion which is secondary to volume overload due to acute renal failure, may also have pneumonia, IV antibiotics on board -Pulmonary and nephrology recommendations appreciated -On admission required high flow oxygen, now saturating mid 90s on room air. #Questionable pneumonia -IV antibiotic -Monitor closely, this may just be radiographic reading as patient did have pulmonary edema, will titrate off antibiotics as edema clears up. And there is a more clear picture on x-ray. #Bilateral hydronephrosis and hydroureter with flank pain -Secondary to above renal failure -Treat pain as needed -Gates removal per urology. #Anasarca -Secondary to above renal failure -Now resolved. #Tachycardia, normal sinus -Secondary to above renal failure as well as shortness of breath -Could also be volume depletion as patient has been getting Lasix get rid of excess water, however do not want to worsen edema, monitor right now patient is not symptomatic, - Transfer to telemetry -Echo unremarkable. #Muscle cramps, resolving -Secondary to electrolyte imbalances due to acute renal failure, monitor closely #Pancreatic issues on CT -Patient has no epigastric pain -Lipase negative #Hypertension -Treat as needed #Disposition - Closely monitor on telemetry for trial of void. Result Diagram: 08/15/18 0459 08/15/189 Subjective 24 Hr Interval Summary Free Text/Dictation No acute overnight events. Gates out this morning for trial of void. I saw patient in the afternoon; she has some bladder pressure but no urine yet. Will continue trying. Continues to have aching abdominal and back pain. Exam/Review of Systems Exam Vitals Vital Signs Date Temp Pulse Resp B/P (MAP) Pulse Ox O2 O2 Flow FiO2 Time Delivery Rate 08/15/18 104 18 97 21 13:23 08/15/18 98.6 104/64 Room Air 11:19 (77) 08/14/18 4.0 13:51 Intake and Output 08/14/18 08/14/18 08/15/18 1515:00 23:00 07:00 IntakeIntake Total 950 ml OutputOutput Total 650 ml 600 ml BalanceBalance 300 ml -600 ml Exam General: Patient is laying in bed and answers questions appropriately via lithuanian sign language, patient is deaf and mute Mentation: Patient is alert and oriented 4 Head: Normocephalic atraumatic Eyes: EOMI, pupils reactive to light Neck: Supple, nontender, no lymphadenopathy. Respiratory: Clear to auscultation bilaterally, no rales or crackles Cardiovascular: tachy to 100s, no obvious murmurs Gastrointestinal: Bilateral lower back flank tenderness to palpation. Abdomen soft, nontender, nondistended. Neurological: Moves all extremities spontaneously Skin: No new skin lesions Results Results 24hrs Laboratory Tests Test 08/15/18 04:59 White Blood Count 6.4 Red Blood Count 4.20 Hemoglobin 11.0 L Hematocrit 35.0 L Mean Corpuscular Volume 83.3 Mean Corpuscular Hemoglobin 26.2 L Mean Corpuscular Hemoglobin Concent 31.4 L Red Cell Distribution Width 12.7 Platelet Count 208 Mean Platelet Volume 10.9 H Immature Granulocytes % 0.200 Neutrophils % 55.0 Lymphocytes % 27.3 Monocytes % 9.0 Eosinophils % 8.3 H Basophils % 0.2 Nucleated Red Blood Cells % 0.0 Immature Granulocytes # 0.010 Neutrophils # 3.5 Lymphocytes # 1.8 Monocytes # 0.6 Eosinophils # 0.5 Basophils # 0.0 Nucleated Red Blood Cells # 0.0 Sodium Level 140 Potassium Level 3.7 Chloride Level 103 Carbon Dioxide Level 29 Anion Gap 8 Blood Urea Nitrogen 16 Creatinine 0.62 Est Glomerular Filtrat Rate mL/min > 60 Glucose Level 111 Calcium Level 8.3 L Medications Medication Current Medications IV Flush (NS 3 ml) 3 ml PER PROTOCOL IV ; Start 08/11/18 at 22:30 Ondansetron HCl (Zofran Inj) 4 mg Q6H PRN IV NAUSEA/VOMITING Last administered on 08/12/18 01:06; Admin Dose 4 MG; Start 08/11/18 at 22:30 Acetaminophen (Tylenol Tab) 650 mg Q6H PRN PO .PAIN 1-3 OR TEMP; Start 08/11/18 at 22:30 Acetaminophen/ Hydrocodone Bitart ([place] (5/325)) 1 tab Q6H PRN PO .MOD PAIN 4- 6 Last administered on 08/15/18 13:59; Admin Dose 1 TAB; Start 08/11/18 at 22:30 Morphine Sulfate (morphine) 2 mg Q4H PRN IV .SEVERE PAIN 7-10 Last administered on 08/13/18 01:09; Admin Dose 2 MG; Start 08/11/18 at 22:30 Docusate Sodium (Colace) 100 mg Q12H PRN PO .CONSTIPATION; Start 08/11/18 at 22:30 Magnesium Hydroxide (Milk Of Mag) 30 ml DAILY PRN PO .CONSTIPATION; Start 08/11/18 at 22:30 Lorazepam (Ativan) 0.5 mg Q6H PRN IV ANXIETY Last administered on 08/13/18 01:19; Admin Dose 0.5 MG; Start 08/11/18 at 22:30 Hydralazine HCl (Apresoline) 10 mg Q6H PRN IV ELEVATED BLOOD PRESSURE; Start 08/11/18 at 22:30 Nitroglycerin (Nitroglycerin (Sl Tab) 0.4 Mg) 1 tab Q5M PRN SL ANGINA; Start 08/11/18 at 22:30 Levalbuterol (Xopenex Neb) 1.25 mg Q6H RESP THERAPY HHN Last administered on 08/15/18 13:23; Admin Dose 1.25 MG; Start 08/12/18 at 14:00 Levalbuterol (Xopenex Neb) 1.25 mg Q6H RESP THERAPY PRN HHN shortness of breath; Start 08/12/18 at 09:30 Ipratropium [place] (Atrovent 0.02% (Neb)) 0.5 mg Q6HWA RESP THERAPY HHN Last administered on 08/15/18 13:23; Admin Dose 0.5 MG; Start 08/12/18 at 14:00 Ipratropium [place] (Atrovent 0.02% (Neb)) 0.5 mg Q4H RESP THERAPY PRN HHN SHORTNESS OF BREATH; Start 08/12/18 at 09:30 Budesonide (Pulmicort (Neb)) 0.5 mg BID RESP THERAPY HHN Last administered on 08/15/18at 08:43; Admin Dose 0.5 MG; Start 08/12/18 at 20:00 Cefepime HCl 50 ml @ 100 mls/hr Q8 IVPB Last administered on 08/15/18at 13:54; Admin Dose 100 MLS/HR; Start 08/13/18 at 14:00 [place] SANTAMARIA MD Aug 15, 2018 15:03
[2018-08-15] MEDS: morphine 2 MG INJ IV PRN (15:17)
--- NOTE | 2018-08-15 20:21 | CONS ---
Consult Date/Type/Reason Admit Date/Time Aug 11, 2018 at 21:43 Initial Consult Date 08/12/18 Type of Consultation: Urology Reason for Consultation Urinary retention Requesting Provider: JAK WALSH Date/Time of Note DATE: 08/15/18 TIME: 20:16 Subjective The patient is awake and alert and comfortable. She states that she has pain in the suprapubic area. Objective Vitals Vital Signs Date Temp Pulse Resp B/P (MAP) Pulse Ox O2 O2 Flow FiO2 Time Delivery Rate 08/15/18 99 16:15 08/15/18 98.3 19 106/60 98 Room Air 15:48 (75) 08/15/18 21 13:23 08/14/18 4.0 13:51 Intake and Output 08/14/18 08/14/18 08/15/18 1515:00 23:00 07:00 IntakeIntake Total 950 ml OutputOutput Total 650 ml 600 ml BalanceBalance 300 ml -600 ml Exam Patient is awake and alert. We tried to call the translation service for the deaf and mute but the water operator told us no one is available at this time. I did write for the patient and she said she did urinate but her postvoid residual was still high and the nurse had to do straight cath on her. The bladder scan showed 488 mL postvoid residual and do straight cath drained 450 mL Results/Medications Result Diagram: 08/15/18 0459 08/15/18 0459 Results 24 hrs Laboratory Tests Test 08/15/18 04:59 White Blood Count 6.4 Red Blood Count 4.20 Hemoglobin 11.0 L Hematocrit 35.0 L Mean Corpuscular Volume 83.3 Mean Corpuscular Hemoglobin 26.2 L Mean Corpuscular Hemoglobin Concent 31.4 L Red Cell Distribution Width 12.7 Platelet Count 208 Mean Platelet Volume 10.9 H Immature Granulocytes % 0.200 Neutrophils % 55.0 Lymphocytes % 27.3 Monocytes % 9.0 Eosinophils % 8.3 H Basophils % 0.2 Nucleated Red Blood Cells % 0.0 Immature Granulocytes # 0.010 Neutrophils # 3.5 Lymphocytes # 1.8 Monocytes # 0.6 Eosinophils # 0.5 Basophils # 0.0 Nucleated Red Blood Cells # 0.0 Sodium Level 140 Potassium Level 3.7 Chloride Level 103 Carbon Dioxide Level 29 Anion Gap 8 Blood Urea Nitrogen 16 Creatinine 0.62 Est Glomerular Filtrat Rate mL/min > 60 Glucose Level 111 Calcium Level 8.3 L Home Meds Active Scripts Naproxen* (Naprosyn*) 500 Mg Tablet, 500 MG PO BID PRN for PAIN AND/OR INFLAMMATION, #30 TAB Prov:VALENTINO SAWANT PA-C 07/14/18 Reported Medications Dextromethorphan Hb-Promethazine Hcl* (Promethazine DM* Syrup) 473 Ml Syrup, 6.25 MG PO Q6H PRN for COUGH for 25 Days 08/12/18 Hydrochlorothiazide* (Hydrochlorothiazide*) 25 Mg Tab, 25 MG PO DAILY for 14 Days, #14 08/12/18 Metoclopramide Hcl* (Metoclopramide Hcl*) 10 Mg Tablet, 10 MG PO DAILY for 10 Days 08/12/18 Discontinued Reported Medications Ferrous Sulfate (Iron) 325 Mg Capsule.er, 325 MG PO, CAP 10/13/16 Vits W-Ca,Fe,Fa(<1MG) ( Vitamins) 1 Tab Tablet, 1 TAB PO DAILY 11/05/14 Discontinued Scripts Docusate Sodium* (Colace*) 100 Mg Capsule, 100 MG PO TID, #30 CAP Prov:VALENTINO SAWANT PA-C 07/14/18 Cephalexin* (Keflex*) 500 Mg Capsule, 500 MG PO TID for 7 Days, CAP Prov:VALENTINO SAWANT PA-C 07/14/18 Medications Current Medications IV Flush (NS 3 ml) 3 ml PER PROTOCOL IV ; Start 08/11/18 at 22:30 Ondansetron HCl (Zofran Inj) 4 mg Q6H PRN IV NAUSEA/VOMITING Last administered on 08/12/18at 01:06; Admin Dose 4 MG; Start 08/11/18 at 22:30 Acetaminophen (Tylenol Tab) 650 mg Q6H PRN PO .PAIN 1-3 OR TEMP; Start 08/11/18 at 22:30 Acetaminophen/ Hydrocodone Bitart ([place] (5/325)) 1 tab Q6H PRN PO .MOD PAIN 4- 6 Last administered on 08/15/18at 13:59; Admin Dose 1 TAB; Start 08/11/18 at 22:30 Morphine Sulfate (morphine) 2 mg Q4H PRN IV .SEVERE PAIN 7-10 Last administered on 08/15/18 15:17; Admin Dose 2 MG; Start 08/11/18 at 22:30 Docusate Sodium (Colace) 100 mg Q12H PRN PO .CONSTIPATION; Start 08/11/18 at 22:30 Magnesium Hydroxide (Milk Of Mag) 30 ml DAILY PRN PO .CONSTIPATION; Start 08/11/18 at 22:30 Lorazepam (Ativan) 0.5 mg Q6H PRN IV ANXIETY Last administered on 08/13/18at 01:19; Admin Dose 0.5 MG; Start 08/11/18 at 22:30 Hydralazine HCl (Apresoline) 10 mg Q6H PRN IV ELEVATED BLOOD PRESSURE; Start 08/11/18 at 22:30 Nitroglycerin (Nitroglycerin (Sl Tab) 0.4 Mg) 1 tab Q5M PRN SL ANGINA; Start 08/11/18 at 22:30 Levalbuterol (Xopenex Neb) 1.25 mg Q6H RESP THERAPY HHN Last administered on 08/15/18at 13:23; Admin Dose 1.25 MG; Start 08/12/18 at 14:00 Levalbuterol (Xopenex Neb) 1.25 mg Q6H RESP THERAPY PRN HHN shortness of breath; Start 08/12/18 at 09:30 Ipratropium [place] (Atrovent 0.02% (Neb)) 0.5 mg Q6HWA RESP THERAPY HHN Last administered on 08/15/18at 13:23; Admin Dose 0.5 MG; Start 08/12/18 at 14:00 Ipratropium [place] (Atrovent 0.02% (Neb)) 0.5 mg Q4H RESP THERAPY PRN HHN SHORTNESS OF BREATH; Start 08/12/18 at 09:30 Budesonide (Pulmicort (Neb)) 0.5 mg BID RESP THERAPY HHN Last administered on 08/15/18at 08:43; Admin Dose 0.5 MG; Start 08/12/18 at 20:00 Cefepime HCl 50 ml @ 100 mls/hr Q8 IVPB Last administered on 08/15/18at 13:54; Admin Dose 100 MLS/HR; Start 08/13/18 at 14:00 Assessment/Plan Hospital Course (Demo Recall) 27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 The patient did see her primary care physician and was told to come to the emergency room because her creatinine was 18. Creatinine repeated in the emergency room was 20. She had a CT scan of the abdomen and pelvis and that showed bilateral hydroureteronephrosis and distended urinary bladder. A Gates catheter was inserted and over a liter was obtained and the nurse in the ICU tells me that in the emergency room they had 5 L come out and in the ICU 4 L of urine output as well but the patient did receive Lasix 80 mg because her potassium was very high 6.5. This patient serum creatinine was about 0.76 1 months earlier After the insertion of the Gates catheter her renal function started to improve, the creatinine has come down to 9.90 then 3.08. And now 0.78 Since the patient is deaf-mute I had the mine deputy on the computer at her bedside help translate to her. I did explain to her the problem related to her urine and kidneys. I answered all of her questions and concerns. Urine culture was done before removing the Gates catheter. The catheter was removed at 6 AM on August 15, 2018. The patient has not been able to urinate well she did have a postvoid residual of 488 on the bladder scan and when catheterized 450 mL drained out. I will start her on Urecholine 25 mg 3 times a day and hope that will help her empty her bladder KIRBY PHILLIP MD Aug 15, 2018 20:21
[2018-08-15] MEDS: BETHANECHOL 25 MG TAB PO SCH (21:18)
[2018-08-16] VITALS (8 sets, daily range): BP systolic 110–120; BP diastolic 62–79; PULSE 88–112; RESP 16–20
[2018-08-16] MEDS: LEVALBUTEROL (NEB) 1.25 MG/0.5 ML AMP HHN SCH ×3 (01:58→15:40)
[2018-08-16] MEDS: CEFEPIME 1GM/50 ML (PMX) 50 ML IVPB SCH ×3 (05:53→21:12)
[2018-08-16] MEDS: BETHANECHOL 25 MG TAB PO SCH ×3 (08:12→20:53)
--- NOTE | 2018-08-16 08:31 | PN ---
DATE: 08/16/2018 SUBJECTIVE: The patient continues to have difficulty voiding. The patient necessitated in and out c atheterization due to high postvoid residual. No other acute events noted. OBJECTIVE: VITAL SIGNS: Blood pressure is 118/66, respirations 20, pulse 95, temperature 98.6. HEENT: Head is normocephalic. NECK: Supple. HEART: Regular rate. LUNGS: Show diminished breath sounds at the base. ABDOMEN: Soft, nontender to palpation without rebound or guarding. EXTREMITIES: Negative for clubbing, cyanosis, no edema. DERMATOLOGIC: No rashes. MUSCULOSKELETAL: No joint effusion. NEUROLOGIC: No change in exam. MEDICATIONS: Reviewed. LABORATORY DATA: Reviewed. IMAGING STUDIES: Reviewed. ASSESSMENT AND PLAN: 1. Nonoliguric acute kidney injury with previous baseline creatinine of 0.76 mg/dL. Etiology of acu te kidney injury was secondary to obstructive uropathy. The patient's renal function is improved, cu rrently back to baseline after Gates catheter placement. Continue to monitor. 2. Urinary retention. The patient is currently on voiding trial, is being followed by urology. The patient was placed on Urecholine. Continue to monitor. 3. Volume overload, resolved. 4. Acute hypoxemic respiratory failure, resolved. 5. Pulmonary edema, resolved. 6. Hypertension. Continue to monitor blood pressures closely. 7. Encephalopathy, resolved. 8. Mineral bone disorder. Monitor calcium and phosphorus levels. 9. Metabolic acidosis, resolved. 10. Diastolic heart failure. The patient is currently compensated. Continue to monitor. Dictated By: MIGUEL BENSON DO NR/NTS Conf#: [id number] DID#: [id number] CC: [place] SANTAMARIA MD; LISSETTE DAVIS; KIRBY PHILLIP MD;*EndCC*
[2018-08-16] MEDS: BUDESONIDE (NEB) 0.5MG/2ML AMP HHN SCH (09:38)
[2018-08-16] MEDS: IPRATROPIUM (NEB) 0.5 MG/2.5 ML AMP HHN SCH (09:38)
--- NOTE | 2018-08-16 16:08 | PN ---
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 #Bladder outlet obstruction - Apparently patient's cousin in [facility] has the same problem. - She reports having urinary outlet obstructive symptoms since her third preg manjula. - Dr Hester following - Started bethanecol today, also discontinued ipratroprium. #Acute renal failure, resolved -Secondary to bladder outlet syndrome per urology and nephrology -Now Gates discontinued, current trial of void. #Bilateral hydronephrosis and hydroureter with flank pain, resolved -Secondary to above renal failure -Treat pain as needed -Gates removal per urology. #Anasarca, resolved -Secondary to above renal failure -Now resolved. #Tachycardia, normal sinus -Secondary to above renal failure as well as shortness of breath -Could also be volume depletion as patient has been getting Lasix get rid of excess water, however do not want to worsen edema, monitor right now patient is not symptomatic, - Transfer to telemetry -Echo unremarkable. #Muscle cramps, resolving -Secondary to electrolyte imbalances due to acute renal failure, monitor closely #Pancreatic issues on CT -Patient has no epigastric pain -Lipase negative #Hypertension -Treat as needed #Disposition - Closely monitor on telemetry for trial of void. Result Diagram: 08/16/18 0512 08/16/18 05 Subjective 24 Hr Interval Summary Free Text/Dictation No acute overnight events. Patient had a few episodes of what sounds like overflow urinary incontinence today. Very constipated, firm stool yesterday. Exam/Review of Systems Exam Vitals Vital Signs Date Temp Pulse Resp B/P (MAP) Pulse Ox O2 O2 Flow FiO2 Time Delivery Rate 08/16/18 75 20 96 21 15:40 08/16/18 98.0 115/79 Room Air 11:18 (91) 08/14/18 4.0 13:51 Intake and Output 08/15/18 08/15/18 08/16/18 1515:00 23:00 07:00 IntakeIntake Total 550 ml 750 ml OutputOutput Total 400 ml 475 ml BalanceBalance 150 ml 275 ml Exam General: Patient is laying in bed and answers questions appropriately via serbian sign language, patient is deaf and mute Mentation: Patient is alert and oriented 4 Head: Normocephalic atraumatic Eyes: EOMI, pupils reactive to light Neck: Supple, nontender, no lymphadenopathy. Respiratory: Clear to auscultation bilaterally, no rales or crackles Cardiovascular: regular rate and rhythm, no obvious murmurs Gastrointestinal: Bilateral lower back flank tenderness to palpation. Abdomen soft, nontender, nondistended. Neurological: Moves all extremities spontaneously Skin: No new skin lesions Results Results 24hrs Laboratory Tests Test 08/16/18 05:12 White Blood Count 6.7 Red Blood Count 4.09 L Hemoglobin 10.6 L Hematocrit 34.1 L Mean Corpuscular Volume 83.4 Mean Corpuscular Hemoglobin 25.9 L Mean Corpuscular Hemoglobin Concent 31.1 L Red Cell Distribution Width 12.4 Platelet Count 213 Mean Platelet Volume 11.0 H Immature Granulocytes % 0.100 Neutrophils % 64.5 Lymphocytes % 21.1 Monocytes % 9.3 Eosinophils % 4.9 Basophils % 0.1 Nucleated Red Blood Cells % 0.0 Immature Granulocytes # 0.010 Neutrophils # 4.3 Lymphocytes # 1.4 Monocytes # 0.6 Eosinophils # 0.3 Basophils # 0.0 Nucleated Red Blood Cells # 0.0 Sodium Level 138 Potassium Level 3.6 Chloride Level 103 Carbon Dioxide Level 27 Anion Gap 8 Blood Urea Nitrogen 19 Creatinine 0.67 Est Glomerular Filtrat Rate mL/min > 60 Glucose Level 92 Calcium Level 8.8 Medications Medication Current Medications IV Flush (NS 3 ml) 3 ml PER PROTOCOL IV ; Start 08/11/18 at 22:30 Ondansetron HCl (Zofran Inj) 4 mg Q6H PRN IV NAUSEA/VOMITING Last administered on 08/12/18at 01:06; Admin Dose 4 MG; Start 08/11/18 at 22:30 Acetaminophen (Tylenol Tab) 650 mg Q6H PRN PO .PAIN 1-3 OR TEMP; Start 08/11/18 at 22:30 Acetaminophen/ Hydrocodone Bitart ([place] (5/325)) 1 tab Q6H PRN PO .MOD PAIN 4- 6 Last administered on 08/15/18at 21:21; Admin Dose 1 TAB; Start 08/11/18 at 22:30 Morphine Sulfate (morphine) 2 mg Q4H PRN IV .SEVERE PAIN 7-10 Last administered on 08/15/18 15:17; Admin Dose 2 MG; Start 08/11/18 at 22:30 Docusate Sodium (Colace) 100 mg Q12H PRN PO .CONSTIPATION; Start 08/11/18 at 22:30 Magnesium Hydroxide (Milk Of Mag) 30 ml DAILY PRN PO .CONSTIPATION Last administered on 08/16/18 08:22; Admin Dose 30 ML; Start 08/11/18 at 22:30 Lorazepam (Ativan) 0.5 mg Q6H PRN IV ANXIETY Last administered on 08/13/18 01:19; Admin Dose 0.5 MG; Start 08/11/18 at 22:30 Hydralazine HCl (Apresoline) 10 mg Q6H PRN IV ELEVATED BLOOD PRESSURE; Start 08/11/18 at 22:30 Nitroglycerin (Nitroglycerin (Sl Tab) 0.4 Mg) 1 tab Q5M PRN SL ANGINA; Start 08/11/18 at 22:30 Levalbuterol (Xopenex Neb) 1.25 mg Q6H RESP THERAPY HHN Last administered on at 15:40; Admin Dose 1.25 MG; Start 08/12/18 at 14:00 Levalbuterol (Xopenex Neb) 1.25 mg Q6H RESP THERAPY PRN HHN shortness of breath; Start 08/12/18 at 09:30 Budesonide (Pulmicort (Neb)) 0.5 mg BID RESP THERAPY HHN Last administered on 08/16/18at 09:38; Admin Dose 0.5 MG; Start 08/12/18 at 20:00 Cefepime HCl 50 ml @ 100 mls/hr Q8 IVPB Last administered on 08/16/18 13:28; Admin Dose 100 MLS/HR; Start 08/13/18 at 14:00 Bethanechol Chloride (Urecholine) 25 mg TID PO Last administered on 08/16/18at 13:28; Admin Dose 25 MG; Start 08/15/18 at 21:00 [place] SANTAMARIA MD Aug 16, 2018 16:08
[2018-08-16] MEDS ORDERED: SENNA TAB PO PRN (16:30)
--- NOTE | 2018-08-16 18:14 | CONS ---
Consult Date/Type/Reason Admit Date/Time Aug 11, 2018 at 21:43 Initial Consult Date 08/12/18 Type of Consultation: Urology Reason for Consultation Urinary retention Requesting Provider: JAK WALSH Date/Time of Note DATE: 08/16/18 TIME: 18:08 Subjective The patient is deaf-mute. The report from the nurses is that she does void very little and had to be catheterized to drain her bladder. Objective Vitals Vital Signs Date Temp Pulse Resp B/P (MAP) Pulse Ox O2 O2 Flow FiO2 Time Delivery Rate 08/16/18 98.2 111 16 110/69 98 Room Air 16:00 (83) 08/16/18 21 15:40 08/14/18 4.0 13:51 Intake and Output 08/15/18 08/15/18 08/16/18 1515:00 23:00 07:00 IntakeIntake Total 550 ml 750 ml OutputOutput Total 400 ml 475 ml BalanceBalance 150 ml 275 ml Exam The abdomen is soft and there is no tenderness. Results/Medications Result Diagram: 08/16/1851108/16/18 0512 Results 24 hrs Laboratory Tests Test 08/16/18 05:12 White Blood Count 6.7 Red Blood Count 4.09 L Hemoglobin 10.6 L Hematocrit 34.1 L Mean Corpuscular Volume 83.4 Mean Corpuscular Hemoglobin 25.9 L Mean Corpuscular Hemoglobin Concent 31.1 L Red Cell Distribution Width 12.4 Platelet Count 213 Mean Platelet Volume 11.0 H Immature Granulocytes % 0.100 Neutrophils % 64.5 Lymphocytes % 21.1 Monocytes % 9.3 Eosinophils % 4.9 Basophils % 0.1 Nucleated Red Blood Cells % 0.0 Immature Granulocytes # 0.010 Neutrophils # 4.3 Lymphocytes # 1.4 Monocytes # 0.6 Eosinophils # 0.3 Basophils # 0.0 Nucleated Red Blood Cells # 0.0 Sodium Level 138 Potassium Level 3.6 Chloride Level 103 Carbon Dioxide Level 27 Anion Gap 8 Blood Urea Nitrogen 19 Creatinine 0.67 Est Glomerular Filtrat Rate mL/min > 60 Glucose Level 92 Calcium Level 8.8 Home Meds Active Scripts Naproxen* (Naprosyn*) 500 Mg Tablet, 500 MG PO BID PRN for PAIN AND/OR INFLAMMATION, #30 TAB Prov:VALENTINO SAWANT PA-C 07/14/18 Reported Medications Dextromethorphan Hb-Promethazine Hcl* (Promethazine DM* Syrup) 473 Ml Syrup, 6.25 MG PO Q6H PRN for COUGH for 25 Days 08/12/18 Hydrochlorothiazide* (Hydrochlorothiazide*) 25 Mg Tab, 25 MG PO DAILY for 14 Days, #14 08/12/18 Metoclopramide Hcl* (Metoclopramide Hcl*) 10 Mg Tablet, 10 MG PO DAILY for 10 Days 08/12/18 Discontinued Reported Medications Ferrous Sulfate (Iron) 325 Mg Capsule.er, 325 MG PO, CAP 10/13/16 Vits W-Ca,Fe,Fa(<1MG) ( Vitamins) 1 Tab Tablet, 1 TAB PO DAILY 11/05/14 Discontinued Scripts Docusate Sodium* (Colace*) 100 Mg Capsule, 100 MG PO TID, #30 CAP Prov:VALENTINO SAWANT PA-C 07/14/18 Cephalexin* (Keflex*) 500 Mg Capsule, 500 MG PO TID for 7 Days, CAP Prov:VALENTINO SAWANT PA-C 07/14/18 Medications Current Medications IV Flush (NS 3 ml) 3 ml PER PROTOCOL IV ; Start 08/11/18 at 22:30 Ondansetron HCl (Zofran Inj) 4 mg Q6H PRN IV NAUSEA/VOMITING Last administered on 08/12/18at 01:06; Admin Dose 4 MG; Start 08/11/18 at 22:30 Acetaminophen (Tylenol Tab) 650 mg Q6H PRN PO .PAIN 1-3 OR TEMP; Start 08/11/18 at 22:30 Acetaminophen/ Hydrocodone Bitart ([place] (5/325)) 1 tab Q6H PRN PO .MOD PAIN 4- 6 Last administered on 08/15/18at 21:21; Admin Dose 1 TAB; Start 08/11/18 at 22:30 Morphine Sulfate (morphine) 2 mg Q4H PRN IV .SEVERE PAIN 7-10 Last administered on 08/15/18at 15:17; Admin Dose 2 MG; Start 08/11/18 at 22:30 Docusate Sodium (Colace) 100 mg Q12H PRN PO .CONSTIPATION; Start 08/11/18 at 22:30 Magnesium Hydroxide (Milk Of Mag) 30 ml DAILY PRN PO .CONSTIPATION Last administered on 08/16/18at 08:22; Admin Dose 30 ML; Start 08/11/18 at 22:30 Lorazepam (Ativan) 0.5 mg Q6H PRN IV ANXIETY Last administered on 08/13/18at 01:19; Admin Dose 0.5 MG; Start 08/11/18 at 22:30 Hydralazine HCl (Apresoline) 10 mg Q6H PRN IV ELEVATED BLOOD PRESSURE; Start 08/11/18 at 22:30 Nitroglycerin (Nitroglycerin (Sl Tab) 0.4 Mg) 1 tab Q5M PRN SL ANGINA; Start 08/11/18 at 22:30 Cefepime HCl 50 ml @ 100 mls/hr Q8 IVPB Last administered on 08/16/18at 13:28; Admin Dose 100 MLS/HR; Start 08/13/18 at 14:00 Bethanechol Chloride (Urecholine) 25 mg TID PO Last administered on 08/16/18at 13:28; Admin Dose 25 MG; Start 08/15/18 at 21:00 Senna (Senokot) 2 tab BID PRN PO CONSTIPATION; Start 08/16/18 at 16:30 Assessment/Plan Hospital Course (Demo Recall) 27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 The patient did see her primary care physician and was told to come to the emergency room because her creatinine was 18. Creatinine repeated in the emergency room was 20. She had a CT scan of the abdomen and pelvis and that showed bilateral hydroureteronephrosis and distended urinary bladder. A Gates catheter was inserted and over a liter was obtained and the nurse in the ICU tells me that in the emergency room they had 5 L come out and in the ICU 4 L of urine output as well but the patient did receive Lasix 80 mg because her potassium was very high 6.5. This patient serum creatinine was about 0.76 1 months earlier After the insertion of the Gates catheter her renal function started to improve, the creatinine has come down to 9.90 then 3.08. And now 0.67 The Gates catheter was discontinued on 08/15/2018 with the hope that she may be able to urinate on her own. However she has not been able to urinate and she needed to be catheterized. She was also started on Urecholine 25 mg 3 times a day. She is also ambulating and I have discussed with the hospitalist about di scontinuing her ipratropium bromide as this has a non-tight cholinergic effect and may be contributing to her urinary retention. Therefore the plan is to continue to monitor her voiding and her postvoid residual and do a bladder scan followed by in and out cath if the bladder scan shows over 300 mL of postvoid residual or it shows 500 mL if the patient has not voided. KIRBY PHILLIP MD Aug 16, 2018 18:14
[2018-08-17] VITALS (10 sets, daily range): BP systolic 95–114; BP diastolic 56–71; PULSE 72–99; RESP 18
[2018-08-17] MEDS: CEFEPIME 1GM/50 ML (PMX) 50 ML IVPB SCH ×3 (06:54→21:36)
[2018-08-17] MEDS: BETHANECHOL 25 MG TAB PO SCH ×3 (09:04→20:42)
--- NOTE | 2018-08-17 09:28 | PN ---
DATE: 08/17/2018 SUBJECTIVE: The patient is stable. Continues to undergo in and out catheterization. No other acute events noted. OBJECTIVE: VITAL SIGNS: Blood pressure is 109/68, respiration 18, pulse 75, temperature 97.8. HEENT: Head is normocephalic. NECK: Supple. HEART: Regular rate. LUNGS: Show diminished breath sounds at the base. ABDOMEN: Soft, nontender to palpation without rebound or guarding. EXTREMITIES: Negative for clubbing, cyanosis, no edema. DERMATOLOGIC: No rashes. MUSCULOSKELETAL: No joint effusion. NEUROLOGIC: No change in exam. MEDICATIONS: Reviewed. LABORATORY DATA: Has been reviewed. ASSESSMENT AND PLAN: 1. Nonoliguric acute kidney injury with previous baseline creatinine of 0.76 mg/dL. Etiology of acu te kidney injury is secondary to obstructive uropathy. Renal function has resolved after Gates meg ter placement. Continue to monitor. 2. Urinary retention. Continue voiding trials per urology. 3. Volume overload, resolved. 4. Hypoxemic respiratory failure, resolved. 5. Pulmonary edema, resolved. 6. Hypertension. Continue to monitor blood pressure closely. 7. Encephalopathy, resolved. 8. Mineral bone disorder. Monitor calcium and phosphorus levels. 9. Diastolic heart failure. The patient is currently compensated. 10. Status post metabolic acidosis. We will sign off. Please reconsult as needed. Dictated By: MIGUEL AGUILAR/[place] Conf#: [id number] DID#: [id number] CC: LISSETTE DAVIS;*EndCC*
--- NOTE | 2018-08-17 13:43 | CONS ---
Consult Date/Type/Reason Admit Date/Time Aug 11, 2018 at 21:43 Initial Consult Date 08/12/18 Type of Consultation: Urology Reason for Consultation Urinary retention Requesting Provider: JAK WALSH Date/Time of Note DATE: 08/17/18 TIME: 13:41 Subjective Patient is awake alert and appears to be very comfortable. She has not voided yet today Objective Vitals Vital Signs Date Temp Pulse Resp B/P (MAP) Pulse Ox O2 O2 Flow FiO2 Time Delivery Rate 08/17/18 98.0 84 18 103/64 99 Room Air 11:22 (77) 08/16/18 21 15:40 08/14/18 4.0 13:51 Intake and Output 08/16/18 08/16/18 08/17/18 1515:00 23:00 07:00 IntakeIntake Total 830 ml 650 ml OutputOutput Total 850 ml 1050 ml BalanceBalance -20 ml -400 ml Exam Bladder scan showed 396 mL. The nurse is waiting to repeat it in 2 hours and then if the volume is over 500 she will do straight cath on her. Results/Medications Result Diagram: 08/17/1862708/17/18 0600 Results 24 hrs Laboratory Tests Test 08/17/18 06:00 08/17/18 06:28 08/17/18 12:35 Sodium Level 142 Potassium Level 3.9 Chloride Level 104 Carbon Dioxide Level 29 Anion Gap 9 Blood Urea Nitrogen 18 Creatinine 0.66 Est Glomerular Filtrat > 60 Rate mL/min Glucose Level 101 Calcium Level 9.0 White Blood Count 5.6 Red Blood Count 4.13 L Hemoglobin 10.6 L Hematocrit 35.0 L Mean Corpuscular Volume 84.7 Mean Corpuscular Hemoglobin 25.7 L Mean Corpuscular 30.3 L Hemoglobin Concent Red Cell Distribution Width 12.5 Platelet Count 245 Mean Platelet Volume 10.8 H Immature Granulocytes % 0.200 Neutrophils % 54.7 Lymphocytes % 27.6 Monocytes % 10.1 Eosinophils % 7.0 Basophils % 0.4 Nucleated Red Blood Cells % 0.0 Immature Granulocytes # 0.010 Neutrophils # 3.1 Lymphocytes # 1.5 Monocytes # 0.6 Eosinophils # 0.4 Basophils # 0.0 Nucleated Red Blood Cells # 0.0 Lab Scanned Report REFERENCE LAB Home Meds Active Scripts Naproxen* (Naprosyn*) 500 Mg Tablet, 500 MG PO BID PRN for PAIN AND/OR INF LAMMATION, #30 TAB Prov:VALENTINO SAWANT PA-C 07/14/18 Reported Medications Dextromethorphan Hb-Promethazine Hcl* (Promethazine DM* Syrup) 473 Ml Syrup, 6.25 MG PO Q6H PRN for COUGH for 25 Days 08/12/18 Hydrochlorothiazide* (Hydrochlorothiazide*) 25 Mg Tab, 25 MG PO DAILY for 14 Days, #14 08/12/18 Metoclopramide Hcl* (Metoclopramide Hcl*) 10 Mg Tablet, 10 MG PO DAILY for 10 Days 08/12/18 Discontinued Reported Medications Ferrous Sulfate (Iron) 325 Mg Capsule.er, 325 MG PO, CAP 10/13/16 Vits W-Ca,Fe,Fa(<1MG) ( Vitamins) 1 Tab Tablet, 1 TAB PO DAILY 11/05/14 Discontinued Scripts Docusate Sodium* (Colace*) 100 Mg Capsule, 100 MG PO TID, #30 CAP Prov:VALENTINO SAWANT PA-C 07/14/18 Cephalexin* (Keflex*) 500 Mg Capsule, 500 MG PO TID for 7 Days, CAP Prov:VALENTINO SAWANT PA-C 07/14/18 Medications Current Medications IV Flush (NS 3 ml) 3 ml PER PROTOCOL IV ; Start 08/11/18 at 22:30 Ondansetron HCl (Zofran Inj) 4 mg Q6H PRN IV NAUSEA/VOMITING Last administered on 08/12/18at 01:06; Admin Dose 4 MG; Start 08/11/18 at 22:30 Acetaminophen (Tylenol Tab) 650 mg Q6H PRN PO .PAIN 1-3 OR TEMP; Start 08/11/18 at 22:30 Acetaminophen/ Hydrocodone Bitart ([place] (5/325)) 1 tab Q6H PRN PO .MOD PAIN 4- 6 Last administered on 08/15/18at 21:21; Admin Dose 1 TAB; Start 08/11/18 at 22:30 Docusate Sodium (Colace) 100 mg Q12H PRN PO .CONSTIPATION; Start 08/11/18 at 22:30 Magnesium Hydroxide (Milk Of Mag) 30 ml DAILY PRN PO .CONSTIPATION Last administered on 08/16/18at 08:22; Admin Dose 30 ML; Start 08/11/18 at 22:30 Lorazepam (Ativan) 0.5 mg Q6H PRN IV ANXIETY Last administered on 08/13/18at 0 1:19; Admin Dose 0.5 MG; Start 08/11/18 at 22:30 Hydralazine HCl (Apresoline) 10 mg Q6H PRN IV ELEVATED BLOOD PRESSURE; Start 08/11/18 at 22:30 Nitroglycerin (Nitroglycerin (Sl Tab) 0.4 Mg) 1 tab Q5M PRN SL ANGINA; Start 08/11/18 at 22:30 Cefepime HCl 50 ml @ 100 mls/hr Q8 IVPB Last administered on 08/17/18at 06:54; Admin Dose 100 MLS/HR; Start 08/13/18 at 14:00 Bethanechol Chloride (Urecholine) 25 mg TID PO Last administered on 08/17/18at 12:57; Admin Dose 25 MG; Start 08/15/18 at 21:00 Senna (Senokot) 2 tab BID PRN PO CONSTIPATION; Start 08/16/18 at 16:30 Assessment/Plan Hospital Course (Demo Recall) 27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 The patient did see her primary care physician and was told to come to the emergency room because her creatinine was 18. Creatinine repeated in the emergency room was 20. She had a CT scan of the abdomen and pelvis and that showed bilateral hydroureteronephrosis and distended urinary bladder. A Gates catheter was inserted and over a liter was obtained and the nurse in the ICU tells me that in the emergency room they had 5 L come out and in the ICU 4 L of urine output as well but the patient did receive Lasix 80 mg because her potassium was very high 6.5. This patient serum creatinine was about 0.76 1 months earlier After the insertion of the Gates catheter her renal function started to improve, the creatinine has come down to 9.90 then 3.08. And now 0.67 The Gates catheter was discontinued on 08/15/2018 with the hope that she may be able to urinate on her own. However she has not been able to urinate and she needed to be catheterized. She was also started on Urecholine 25 mg 3 times a day. She is also ambulating and I have discussed with the hospitalist about discontinuing her ipratropium bromide as this has a non-tight cholinergic effect and may be contributing to her urinary retention. Patient has not voided yet today. Bladder scan shows 396 mL. It will be repeated in 2 hours and once the volume is over 500 mL then the nurse will do straight catheter on her. Encouraged the patient to ambulate and try to urinate even if she does not have the urge to go. KIRBY PHILLIP MD Aug 17, 2018 13:43
--- NOTE | 2018-08-17 16:02 | PN ---
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 #Bladder outlet obstruction - Apparently patient's cousin in [facility] has the same problem. - She reports having urinary outlet obstructive symptoms since her third . - Dr Hester following - Started bethanecol, also discontinued ipratroprium. #Acute renal failure, resolved -Secondary to bladder outlet syndrome per urology and nephrology -Now Gates discontinued, current trial of void. #Bilateral hydronephrosis and hydroureter with flank pain, resolved -Secondary to above renal failure -Treat pain as needed -Gates removal per urology. #Anasarca, resolved -Secondary to above renal failure -Now resolved. #Tachycardia, normal sinus -Secondary to above renal failure as well as shortness of breath -Could also be volume depletion as patient has been getting Lasix get rid of excess water, however do not want to worsen edema, monitor right now patient is not symptomatic, - Transfer to telemetry -Echo unremarkable. #Muscle cramps, resolving -Secondary to electrolyte imbalances due to acute renal failure, monitor closely #Pancreatic issues on CT -Patient has no epigastric pain -Lipase negative #Hypertension -Treat as needed #Disposition - Closely monitor on telemetry for trial of void. Result Diagram: 08/17/1828 08/17/18 0600 Subjective 24 Hr Interval Summary Free Text/Dictation No acute overnight events. Still having urinary retention problems, required straight cath again today. Exam/Review of Systems Exam Vitals Vital Signs Date Temp Pulse Resp B/P (MAP) Pulse Ox O2 O2 Flow FiO2 Time Delivery Rate 08/17/18 99.0 99 18 110/62 97 Room Air 15:28 (78) 08/16/18 21 15:40 08/14/18 4.0 13:51 Intake and Output 08/16/18 08/16/18 08/17/18 1515:00 23:00 07:00 IntakeIntake Total 830 ml 650 ml OutputOutput Total 850 ml 1050 ml BalanceBalance -20 ml -400 ml Exam General: Patient is laying in bed and answers questions appropriately via tristanian sign language, patient is deaf and mute Mentation: Patient is alert and oriented 4 Head: Normocephalic atraumatic Eyes: EOMI, pupils reactive to light Neck: Supple, nontender, no lymphadenopathy. Respiratory: Clear to auscultation bilaterally, no rales or crackles Cardiovascular: regular rate and rhythm, no obvious murmurs Gastrointestinal: Bilateral lower back flank tenderness to palpation. Abdomen soft, nontender, nondistended. Neurological: Moves all extremities spontaneously Skin: No new skin lesions Results Results 24hrs Laboratory Tests Test 08/17/18 06:00 08/17/18 06:28 08/17/18 12:35 Sodium Level 142 Potassium Level 3.9 Chloride Level 104 Carbon Dioxide Level 29 Anion Gap 9 Blood Urea Nitrogen 18 Creatinine 0.66 Est Glomerular Filtrat > 60 Rate mL/min Glucose Level 101 Calcium Level 9.0 White Blood Count 5.6 Red Blood Count 4.13 L Hemoglobin 10.6 L Hematocrit 35.0 L Mean Corpuscular Volume 84.7 Mean Corpuscular Hemoglobin 25.7 L Mean Corpuscular 30.3 L Hemoglobin Concent Red Cell Distribution Width 12.5 Platelet Count 245 Mean Platelet Volume 10.8 H Immature Granulocytes % 0.200 Neutrophils % 54.7 Lymphocytes % 27.6 Monocytes % 10.1 Eosinophils % 7.0 Basophils % 0.4 Nucleated Red Blood Cells % 0.0 Immature Granulocytes # 0.010 Neutrophils # 3.1 Lymphocytes # 1.5 Monocytes # 0.6 Eosinophils # 0.4 Basophils # 0.0 Nucleated Red Blood Cells # 0.0 Lab Scanned Report REFERENCE LAB Medications Medication Current Medications IV Flush (NS 3 ml) 3 ml PER PROTOCOL IV ; Start 08/11/18 at 22:30 Ondansetron HCl (Zofran Inj) 4 mg Q6H PRN IV NAUSEA/VOMITING Last administered on 08/12/18at 01:06; Admin Dose 4 MG; Start 08/11/18 at 22:30 Acetaminophen (Tylenol Tab) 650 mg Q6H PRN PO .PAIN 1-3 OR TEMP; Start 08/11/18 at 22:30 Acetaminophen/ Hydrocodone Bitart ([place] (5/325)) 1 tab Q6H PRN PO .MOD PAIN 4- 6 Last administered on 08/15/18at 21:21; Admin Dose 1 TAB; Start 08/11/18 at 22:30 Docusate Sodium (Colace) 100 mg Q12H PRN PO .CONSTIPATION; Start 08/11/18 at 22:30 Magnesium Hydroxide (Milk Of Mag) 30 ml DAILY PRN PO .CONSTIPATION Last administered on 08/16/18at 08:22; Admin Dose 30 ML; Start 08/11/18 at 22:30 Lorazepam (Ativan) 0.5 mg Q6H PRN IV ANXIETY Last administered on 08/13/18at 01:19; Admin Dose 0.5 MG; Start 08/11/18 at 22:30 Hydralazine HCl (Apresoline) 10 mg Q6H PRN IV ELEVATED BLOOD PRESSURE; Start 08/11/18 at 22:30 Nitroglycerin (Nitroglycerin (Sl Tab) 0.4 Mg) 1 tab Q5M PRN SL ANGINA; Start 08/11/18 at 22:30 Cefepime HCl 50 ml @ 100 mls/hr Q8 IVPB Last administered on 08/17/18at 13:47; Admin Dose 100 MLS/HR; Start 08/13/18 at 14:00 Bethanechol Chloride (Urecholine) 25 mg TID PO Last administered on 08/17/18at 12:57; Admin Dose 25 MG; Start 08/15/18 at 21:00 Senna (Senokot) 2 tab BID PRN PO CONSTIPATION; Start 08/16/18 at 16:30 INDIANA SANTAMARIA MD Aug 17, 2018 16:02
[2018-08-17] MEDS: HYDROCODONE/APAP (5/325) TAB PO PRN (20:42)
[2018-08-18] VITALS (11 sets, daily range): BP systolic 110–115; BP diastolic 64–82; PULSE 79–94; RESP 18
[2018-08-18] MEDS: CEFEPIME 1GM/50 ML (PMX) 50 ML IVPB SCH (05:46)
[2018-08-18] MEDS: BETHANECHOL 25 MG TAB PO SCH ×3 (08:49→21:18)
--- NOTE | 2018-08-18 14:01 | PN ---
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 #Bladder outlet obstruction - Apparently patient's cousin in [facility] has the same problem. - She reports having urinary outlet obstructive symptoms since her third pregna ncy. - Dr Hester following - Started bethanecol, also discontinued ipratroprium. - Will plan to discharge patient with straight catheters. Case management consulted to ensure she gets more from her insurance. #Acute renal failure, resolved -Secondary to bladder outlet syndrome per urology and nephrology -Now Gates discontinued, current trial of void. #Bilateral hydronephrosis and hydroureter with flank pain, resolved -Secondary to above renal failure -Treat pain as needed -Gates removal per urology. #Anasarca, resolved -Secondary to above renal failure -Now resolved. #Tachycardia, normal sinus -Secondary to above renal failure as well as shortness of breath -Could also be volume depletion as patient has been getting Lasix get rid of excess water, however do not want to worsen edema, monitor right now patient is not symptomatic, - Transfer to telemetry -Echo unremarkable. #Muscle cramps, resolving -Secondary to electrolyte imbalances due to acute renal failure, monitor closely #Pancreatic issues on CT -Patient has no epigastric pain -Lipase negative #Hypertension -Treat as needed #Disposition - Plan for discharge after she is taught how to self-cath and has a supply to take home. Result Diagram: 08/18/18 0539 08/18/18 0539 Subjective 24 Hr Interval Summary Free Text/Dictation Patient is now voiding spontaneously but often not completely emptying bladder. Otherwise feeling well, no complaints. Exam/Review of Systems Exam Vitals Vital Signs Date Temp Pulse Resp B/P (MAP) Pulse Ox O2 O2 Flow FiO2 Time Delivery Rate 08/18/18 89 12:21 08/18/18 98.1 18 112/64 97 Room Air 11:12 (80) 08/17/18 21 22:37 08/14/18 4.0 13:51 Intake and Output 08/17/18 08/17/18 08/18/18 1515:00 23:00 07:00 IntakeIntake Total 940 ml 350 ml OutputOutput Total 500 ml 684 ml BalanceBalance 440 ml -334 ml Exam General: Patient is laying in bed and answers questions appropriately via sri lankan sign language, patient is deaf and mute Mentation: Patient is alert and oriented 4 Head: Normocephalic atraumatic Eyes: EOMI, pupils reactive to light Neck: Supple, nontender, no lymphadenopathy. Respiratory: Clear to auscultation bilaterally, no rales or crackles Cardiovascular: regular rate and rhythm, no obvious murmurs Gastrointestinal: Bilateral lower back flank tenderness to palpation. Abdomen soft, nontender, nondistended. Neurological: Moves all extremities spontaneously Skin: No new skin lesions Results Results 24hrs Laboratory Tests Test 08/18/18 05:39 White Blood Count 4.4 #L Red Blood Count 3.87 L Hemoglobin 10.0 L Hematocrit 32.5 L Mean Corpuscular Volume 84.0 Mean Corpuscular Hemoglobin 25.8 L Mean Corpuscular Hemoglobin Concent 30.8 L Red Cell Distribution Width 12.4 Platelet Count 220 Mean Platelet Volume 10.8 H Immature Granulocytes % 0.200 Neutrophils % 50.7 Lymphocytes % 29.1 Monocytes % 11.7 H Eosinophils % 8.1 H Basophils % 0.2 Nucleated Red Blood Cells % 0.0 Immature Granulocytes # 0.010 Neutrophils # 2.2 Lymphocytes # 1.3 Monocytes # 0.5 Eosinophils # 0.4 Basophils # 0.0 Nucleated Red Blood Cells # 0.0 Sodium Level 141 Potassium Level 3.9 Chloride Level 106 Carbon Dioxide Level 28 Anion Gap 7 Blood Urea Nitrogen 17 Creatinine 0.56 Est Glomerular Filtrat Rate mL/min > 60 Glucose Level 95 Calcium Level 8.4 Medications Medication Current Medications IV Flush (NS 3 ml) 3 ml PER PROTOCOL IV ; Start 08/11/18 at 22:30 Ondansetron HCl (Zofran Inj) 4 mg Q6H PRN IV NAUSEA/VOMITING Last administered on 08/12/18at 01:06; Admin Dose 4 MG; Start 08/11/18 at 22:30 Acetaminophen (Tylenol Tab) 650 mg Q6H PRN PO .PAIN 1-3 OR TEMP; Start 08/11/18 at 22:30 Acetaminophen/ Hydrocodone Bitart ([place] (5/325)) 1 tab Q6H PRN PO .MOD PAIN 4- 6 Last administered on 08/17/18 20:42; Admin Dose 1 TAB; Start 08/11/18 at 22:30 Docusate Sodium (Colace) 100 mg Q12H PRN PO .CONSTIPATION; Start 08/11/18 at 22:30 Magnesium Hydroxide (Milk Of Mag) 30 ml DAILY PRN PO .CONSTIPATION Last administered on 08/16/18 08:22; Admin Dose 30 ML; Start 08/11/18 at 22:30 Lorazepam (Ativan) 0.5 mg Q6H PRN IV ANXIETY Last administered on 08/13/18 01 :19; Admin Dose 0.5 MG; Start 08/11/18 at 22:30 Hydralazine HCl (Apresoline) 10 mg Q6H PRN IV ELEVATED BLOOD PRESSURE; Start 08/11/18 at 22:30 Nitroglycerin (Nitroglycerin (Sl Tab) 0.4 Mg) 1 tab Q5M PRN SL ANGINA; Start 08/11/18 at 22:30 Bethanechol Chloride (Urecholine) 25 mg TID PO Last administered on 08/18/18at 12:26; Admin Dose 25 MG; Start 08/15/18 at 21:00 Senna (Senokot) 2 tab BID PRN PO CONSTIPATION; Start 08/16/18 at 16:30 INDIANA SANTAMARIA MD Aug 18, 2018 14:01
--- NOTE | 2018-08-18 19:21 | CONS ---
Consult Date/Type/Reason Admit Date/Time Aug 11, 2018 at 21:43 Initial Consult Date 08/12/18 Type of Consultation: Urology Reason for Consultation Urinary retention and high postvoid residual urine and renal failure Requesting Provider: JAK WALSH Date/Time of Note DATE: 08/18/18 TIME: 19:13 Subjective Patient is voiding small amount but keeping high postvoid residual. I did see her at 2:00pm and spoke to her with the ic designer standard cells online for over 40 minutes. I explained to her the need to drain her bladder and avoid retention to prevent reflux to the kidney and damage to the kidney and renal failure told her to try to urinate every 2-3 hours and then void and void again with the hope that she will empty her bladder better to where she would not need in and out catheterization. The patient did seem to be understanding and agreeable. Objective Vitals Vital Signs Date Temp Pulse Resp B/P (MAP) Pulse Ox O2 O2 Flow FiO2 Time Delivery Rate 08/18/18 88 16:22 08/18/18 98.1 18 110/71 97 Room Air 15:10 (84) 08/17/18 21 22:37 08/14/18 4.0 13:51 Intake and Output 08/17/18 08/17/18 08/18/18 1515:00 23:00 07:00 IntakeIntake Total 940 ml 350 ml OutputOutput Total 500 ml 684 ml BalanceBalance 440 ml -334 ml Exam e the patient did void 150 ml and the post void residual was 472. Straight cath with 350 ml. Results/Medications Result Diagram: 08/18/18 0539 08/18/18 0539 Results 24 hrs Laboratory Tests Test 08/18/18 05:39 White Blood Count 4.4 #L Red Blood Count 3.87 L Hemoglobin 10.0 L Hematocrit 32.5 L Mean Corpuscular Volume 84.0 Mean Corpuscular Hemoglobin 25.8 L Mean Corpuscular Hemoglobin Concent 30.8 L Red Cell Distribution Width 12.4 Platelet Count 220 Mean Platelet Volume 10.8 H Immature Granulocytes % 0.200 Neutrophils % 50.7 Lymphocytes % 29.1 Monocytes % 11.7 H Eosinophils % 8.1 H Basophils % 0.2 Nucleated Red Blood Cells % 0.0 Immature Granulocytes # 0.010 Neutrophils # 2.2 Lymphocytes # 1.3 Monocytes # 0.5 Eosinophils # 0.4 Basophils # 0.0 Nucleated Red Blood Cells # 0.0 Sodium Level 141 Potassium Level 3.9 Chloride Level 106 Carbon Dioxide Level 28 Anion Gap 7 Blood Urea Nitrogen 17 Creatinine 0.56 Est Glomerular Filtrat Rate mL/min > 60 Glucose Level 95 Calcium Level 8.4 Home Meds Active Scripts Naproxen* (Naprosyn*) 500 Mg Tablet, 500 MG PO BID PRN for PAIN AND/OR INFLAMMATION, #30 TAB Prov:VALENTINO SAWANT PA-C 07/14/18 Reported Medications Dextromethorphan Hb-Promethazine Hcl* (Promethazine DM* Syrup) 473 Ml Syrup, 6.25 MG PO Q6H PRN for COUGH for 25 Days 08/12/18 Hydrochlorothiazide* (Hydrochlorothiazide*) 25 Mg Tab, 25 MG PO DAILY for 14 Days, #14 08/12/18 Metoclopramide Hcl* (Metoclopramide Hcl*) 10 Mg Tablet, 10 MG PO DAILY for 10 Days 08/12/18 Discontinued Reported Medications Ferrous Sulfate (Iron) 325 Mg Capsule.er, 325 MG PO, CAP 10/13/16 Vits W-Ca,Fe,Fa(<1MG) ( Vitamins) 1 Tab Tablet, 1 TAB PO DAILY 11/05/14 Discontinued Scripts Docusate Sodium* (Colace*) 100 Mg Capsule, 100 MG PO TID, #30 CAP Prov:VALENTINO SAWANT PA-C 07/14/18 Cephalexin* (Keflex*) 500 Mg Capsule, 500 MG PO TID for 7 Days, CAP Prov:VALENTINO SAWANT PA-C 07/14/18 Medications Current Medications IV Flush (NS 3 ml) 3 ml PER PROTOCOL IV ; Start 08/11/18 at 22:30 Ondansetron HCl (Zofran Inj) 4 mg Q6H PRN IV NAUSEA/VOMITING Last administered on 08/12/18at 01:06; Admin Dose 4 MG; Start 08/11/18 at 22:30 Acetaminophen (Tylenol Tab) 650 mg Q6H PRN PO .PAIN 1-3 OR TEMP; Start 08/11/18 at 22:30 Acetaminophen/ Hydrocodone Bitart ([place] (5/325)) 1 tab Q6H PRN PO .MOD PAIN 4- 6 Last administered on 08/17/18at 20:42; Admin Dose 1 TAB; Start 08/11/18 at 22:30 Docusate Sodium (Colace) 100 mg Q12H PRN PO .CONSTIPATION; Start 08/11/18 at 22:30 Magnesium Hydroxide (Milk Of Mag) 30 ml DAILY PRN PO .CONSTIPATION Last adm inistered on 08/16/18at 08:22; Admin Dose 30 ML; Start 08/11/18 at 22:30 Lorazepam (Ativan) 0.5 mg Q6H PRN IV ANXIETY Last administered on 08/13/18at 01:19; Admin Dose 0.5 MG; Start 08/11/18 at 22:30 Hydralazine HCl (Apresoline) 10 mg Q6H PRN IV ELEVATED BLOOD PRESSURE; Start 08/11/18 at 22:30 Nitroglycerin (Nitroglycerin (Sl Tab) 0.4 Mg) 1 tab Q5M PRN SL ANGINA; Start 08/11/18 at 22:30 Bethanechol Chloride (Urecholine) 25 mg TID PO Last administered on 08/18/18at 12:26; Admin Dose 25 MG; Start 08/15/18 at 21:00 Senna (Senokot) 2 tab BID PRN PO CONSTIPATION; Start 08/16/18 at 16:30 Assessment/Plan Hospital Course (Demo Recall) 27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 The patient did see her primary care physician and was told to come to the emergency room because her creatinine was 18. Creatinine repeated in the emergency room was 20. She had a CT scan of the abdomen and pelvis and that showed bilateral hydroureteronephrosis and distended urinary bladder. A Gates catheter was inserted and over a liter was obtained and the nurse in the ICU tells me that in the emergency room they had 5 L come out and in the ICU 4 L of urine output as well but the patient did receive Lasix 80 mg because her potassium was very high 6.5. This patient serum creatinine was about 0.76 1 months earlier After the insertion of the Gates catheter her renal function started to improve, the creatinine has come down to 9.90 then 3.08. And now 0.67 The Gates catheter was discontinued on 08/15/2018 with the hope that she may be able to urinate on her own. However she has not been able to urinate and she needed to be catheterized. She was also started on Urecholine 25 mg 3 times a day. She is also ambulating and I have discussed with the hospitalist about discontinuing her ipratropium bromide as this has a non-tight cholinergic effect and may be contributing to her urinary retention. Even with this the patient continued to not be able to empty her bladder and continued to have a high postvoid residual. I spent about 40 minutes talking to her today with the ic designer standard cells online. Explained to her that she will have to learn to do self-catheterization and if she in the future able to empty her bladder with minimal postvoid residual then she could stop the self-catheterization. We discussed that as the possibilities are the causes for her retention. She stated that she fell on her sacral area about a month ago and she has been hurting from that. I did request from the rehabilitation case coordinator to arrange for the catheter supplies to the patient. It appears later on when the nurse came in to teach her self-catheterization the patient and her family refused. Therefore I told the nurse to insert the Gates catheter and leave it in. KIRBY PHILLPI MD Aug 18, 2018 19:21
[2018-08-19] VITALS (11 sets, daily range): BP systolic 98–118; BP diastolic 60–79; PULSE 71–118; RESP 16–18
[2018-08-19] MEDS: BETHANECHOL 25 MG TAB PO SCH ×3 (08:33→20:57)
[2018-08-19] MEDS ORDERED: BETH25TA39 PO (11:48)
--- NOTE | 2018-08-19 11:53 | PDOCDIS ---
Discharge Instructions DIAGNOSIS Discharge Diagnosis Obstructive uropathy CONDITION [id number] Patient Condition: [id number] Good HOME CARE INSTRUCTIONS: [id number] Diet Instructions: [id number] Regular ACTIVITY: [id number] Activity Restrictions: [id number] No Restrictions FOLLOW UP/APPOINTMENTS Follow-up Plan 1. Continue to take all medications as prescribed. 2. You will need to self-catheterize yourself every 6 hours. Any longer and you may have urinary incontience or backup of urine causing kidney failure. 3. You are at increased risk of urinary infection. If you feel urinary burning or foul-smelling urine make an appointment with your doctor for antibiotics. 4. See your primary care doctor in 1-2 weeks. INDIANA SANTAMARIA MD Aug 19, 2018 11:53
--- NOTE | 2018-08-19 16:07 | CONS ---
Consult Date/Type/Reason Admit Date/Time Aug 11, 2018 at 21:43 Initial Consult Date 08/12/18 Type of Consultation: Urology Reason for Consultation Urinary retention Requesting Provider: JAK WALSH Date/Time of Note DATE: 08/19/18 TIME: 16:03 Subjective Patient continues to have high postvoid residual urine. Objective Vitals Vital Signs Date Temp Pulse Resp B/P (MAP) Pulse Ox O2 O2 Flow FiO2 Time Delivery Rate 08/19/18 101 12:01 08/19/18 98.1 18 118/79 98 Room Air 11:19 (92) 08/17/18 21 22:37 Intake and Output 08/18/18 08/18/18 08/19/18 1515:00 23:00 07:00 IntakeIntake Total 880 ml 250 ml OutputOutput Total 650 ml 150 ml 180 ml BalanceBalance -650 ml 730 ml 70 ml Exam Patient just did straight catheterization and she did well. Results/Medications Result Diagram: 08/19/18 0501 08/19/18 0501 Results 24 hrs Laboratory Tests Test 08/19/18 05:01 White Blood Count 4.7 L Red Blood Count 3.75 L Hemoglobin 9.8 L Hematocrit 31.5 L Mean Corpuscular Volume 84.0 Mean Corpuscular Hemoglobin 26.1 L Mean Corpuscular Hemoglobin Concent 31.1 L Red Cell Distribution Width 12.3 Platelet Count 245 Mean Platelet Volume 10.2 Immature Granulocytes % 0.200 Neutrophils % 59.4 Lymphocytes % 24.2 Monocytes % 9.7 Eosinophils % 6.1 Basophils % 0.4 Nucleated Red Blood Cells % 0.0 Immature Granulocytes # 0.010 Neutrophils # 2.8 Lymphocytes # 1.1 Monocytes # 0.5 Eosinophils # 0.3 Basophils # 0.0 Nucleated Red Blood Cells # 0.0 Sodium Level 141 Potassium Level 4.0 Chloride Level 107 Carbon Dioxide Level 28 Anion Gap 6 Blood Urea Nitrogen 10 Creatinine 0.47 Est Glomerular Filtrat Rate mL/min > 60 Glucose Level 94 Calcium Level 8.7 Home Meds Active Scripts Naproxen* (Naprosyn*) 500 Mg Tablet, 500 MG PO BID PRN for PAIN AND/OR INFLAMMATION, #30 TAB Prov:VALENTINO SAWANT PA-C 07/14/18 Reported Medications Dextromethorphan Hb-Promethazine Hcl* (Promethazine DM* Syrup) 473 Ml Syrup, 6.25 MG PO Q6H PRN for COUGH for 25 Days 08/12/18 Hydrochlorothiazide* (Hydrochlorothiazide*) 25 Mg Tab, 25 MG PO DAILY for 14 Days, #14 08/12/18 Metoclopramide Hcl* (Metoclopramide Hcl*) 10 Mg Tablet, 10 MG PO DAILY for 10 Days 08/12/18 Discontinued Reported Medications Ferrous Sulfate (Iron) 325 Mg Capsule.er, 325 MG PO, CAP 10/13/16 Vits W-Ca,Fe,Fa(<1MG) ( Vitamins) 1 Tab Tablet, 1 TAB PO DAILY 11/05/14 Discontinued Scripts Docusate Sodium* (Colace*) 100 Mg Capsule, 100 MG PO TID, #30 CAP Prov:VALENTINO SAWANT PA-C 07/14/18 Cephalexin* (Keflex*) 500 Mg Capsule, 500 MG PO TID for 7 Days, CAP Prov:VALENTINO SAWANT PA-C 07/14/18 Medications Current Medications IV Flush (NS 3 ml) 3 ml PER PROTOCOL IV ; Start 08/11/18 at 22:30 Ondansetron HCl (Zofran Inj) 4 mg Q6H PRN IV NAUSEA/VOMITING Last administered on 08/12/18at 01:06; Admin Dose 4 MG; Start 08/11/18 at 22:30 Acetaminophen (Tylenol Tab) 650 mg Q6H PRN PO .PAIN 1-3 OR TEMP; Start 08/11/18 at 22:30 Acetaminophen/ Hydrocodone Bitart (Sapphire (5/325)) 1 tab Q6H PRN PO .MOD PAIN 4- 6 Last administered on 08/17/18at 20:42; Admin Dose 1 TAB; Start 08/11/18 at 22:30 Docusate Sodium (Colace) 100 mg Q12H PRN PO .CONSTIPATION; Start 08/11/18 at 22:30 Magnesium Hydroxide (Milk Of Mag) 30 ml DAILY PRN PO .CONSTIPATION Last a dministered on 08/16/18at 08:22; Admin Dose 30 ML; Start 08/11/18 at 22:30 Lorazepam (Ativan) 0.5 mg Q6H PRN IV ANXIETY Last administered on 08/13/18at 01:19; Admin Dose 0.5 MG; Start 08/11/18 at 22:30 Hydralazine HCl (Apresoline) 10 mg Q6H PRN IV ELEVATED BLOOD PRESSURE; Start 08/11/18 at 22:30 Nitroglycerin (Nitroglycerin (Sl Tab) 0.4 Mg) 1 tab Q5M PRN SL ANGINA; Start 08/11/18 at 22:30 Bethanechol Chloride (Urecholine) 25 mg TID PO Last administered on 08/19/18at 12:49; Admin Dose 25 MG; Start 08/15/18 at 21:00 Senna (Senokot) 2 tab BID PRN PO CONSTIPATION; Start 08/16/18 at 16:30 Assessment/Plan Hospital Course (Demo Recall) 27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 The patient did see her primary care physician and was told to come to the emergency room because her creatinine was 18. Creatinine repeated in the emergency room was 20. She had a CT scan of the abdomen and pelvis and that showed bilateral hydroureteronephrosis and distended urinary bladder. A Gates catheter was inserted and over a liter was obtained and the nurse in the ICU tells me that in the emergency room they had 5 L come out and in the ICU 4 L of urine output as well but the patient did receive Lasix 80 mg because her potassium was very high 6.5. This patient serum creatinine was about 0.76 1 months earlier After the insertion of the Gates catheter her renal function started to improve, the creatinine has come down to 9.90 then 3.08. And now 0.67 The Gates catheter was discontinued on 08/15/2018 with the hope that she may be able to urinate on her own. However she has not been able to urinate and she needed to be catheterized. She was also started on Urecholine 25 mg 3 times a day. She is also ambulating and I have discussed with the hospitalist about discontinuing her ipratropium bromide as this has a non-tight cholinergic effect and may be contributing to her urinary retention. Even with this the patient continued to not be able to empty her bladder and continued to have a high postvoid residual. I spent about 40 minutes talking to her today with the digital hardware design engineer online. Explained to her that she will have to learn to do self-catheterization and if she in the future able to empty her bladder with minimal postvoid residual then she could stop the self-catheterization. We discussed that as the possibilities are the causes for her retention. She stated that she fell on her sacral area about a month ago and she has been hurting from that. I did request from the case maker to arrange for the catheter supplies to the patient. The patient did learn how to do the self-catheterization. I spent over 40 minutes with her and the digital hardware design engineer. I explained to her the treatment. Answered all her questions and explained to her that we will try to get a lumbosacral MRI on her prior to discharge. At home she should continue to urinate every 2-3 hours and once every 6 hours she should do the straight cath after she voids to check the postvoid residual and once the postvoid residual is less than 100 mL she could stop that. KIRBY PHILLIP MD Aug 19, 2018 16:07
--- NOTE | 2018-08-20 07:49 | DS ---
Date/Time of Note Date/Time of Note DATE: 08/20/18 TIME: 07:40 Discharge Summary Admission/Discharge Info Admit Date/Time Aug 11, 2018 at 21:43 Discharge Date/Time Aug 19, 2018 at 21:36 Discharge Diagnosis Obstructive uropathy Patient Condition: Good Consults Dr. Hester, urology Dr. 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 Symptoms became severe so the patient went to her primary care doctor and was told to come into the ER because her creatinine was found to be very elevated at 18. Patient also was complaining of some mild swelling in her legs. When she came in today she was found with a creatinine of 20, her potassium was 6.5. She did receive a dose of IV Lasix 80 mg and she has been diuresing well since that time. She also received sodium bicarb, Kayexalate, insulin to treat her hyperkalemia. Looking at records back in July of this year, 1 month ago, her baseline creatinine appears to be 0.76. A call was made out for the renal doctor to come see the patient he has already ordered a renal ultrasound and Gates catheter has been inserted and patient is making a lot of urine at this time. Hospital Course She was initially admitted to the ICU due to acute renal failure as above, and pulmonary edema with hypoxia. She was placed on empiric antibiotics but these were weaned off quickly as she had no other signs of infection. After placement of Gates there was massive diuresis. Upon further history, the patient reported that since her 3rd she has had difficulty voiding urine. She also had a fall and landed on her coccyx a few months ago. After bladder decompression, all labs including Cr returned to normal and her pulmonary edema cleared up. Unfortunately she failed trial of void and needed intermittent straight catheter. She is able to void a small amount but her postvoid residual is frequently >400 cc. Bethanechol was started without much improvement. She was instructed that she may need lifelong catheterization, she was instructed with proper self-cath teaching, and discharged with a 4-day supply of catheters. Case management will ensure that her insurance delivers dis posable catheters on a regular basis. She was instructed to self-cath every 6 hours. Home Meds Active Scripts Bethanechol Chloride* (Urecholine*) 25 Mg Tab, 25 MG PO TID, #90 TAB 2 Refills Prov:INDIANA SANTAMARIA MD 08/19/18 Naproxen* (Naprosyn*) 500 Mg Tablet, 500 MG PO BID PRN for PAIN AND/OR INFLAMMATION, #30 TAB Prov:VALENTINO SAWANT PA-C 07/14/18 Reported Medications Dextromethorphan Hb-Promethazine Hcl* (Promethazine DM* Syrup) 473 Ml Syrup, 6.25 MG PO Q6H PRN for COUGH for 25 Days 08/12/18 Hydrochlorothiazide* (Hydrochlorothiazide*) 25 Mg Tab, 25 MG PO DAILY for 14 Days, #14 08/12/18 Metoclopramide Hcl* (Metoclopramide Hcl*) 10 Mg Tablet, 10 MG PO DAILY for 10 Days 08/12/18 Follow-up Plan 1. Continue to take all medications as prescribed. 2. You will need to self-catheterize yourself every 6 hours. Any longer and you may have urinary incontience or backup of urine causing kidney failure. 3. You are at increased risk of urinary infection. If you feel urinary burning or foul-smelling urine make an appointment with your doctor for antibiotics. 4. See your primary care doctor in 1-2 weeks. Primary Care Provider [facility] Time spent on discharge: > 30 minutes INDIANA SANTAMARIA MD Aug 20, 2018 07:49
== END 2018-08-19 21:36 | disposition home or self-care (01) | DRG 698 ==
LOC: E/R 18:50 → ICU 21:43 → 6WM 08-14 18:38
PROVIDERS: ADMIT Hospitalist; ATTEND Internal Medicine
DX: N13.9 Obstructive and reflux uropathy, unspecified (principal); J96.01 Acute respiratory failure with hypoxia; G92 Toxic encephalopathy; J18.9 Pneumonia, unspecified organism; J90 Pleural effusion, not elsewhere classified; N17.9 Acute kidney failure, unspecified; E87.2 Acidosis; N13.30 Unspecified hydronephrosis; I50.32 Chronic diastolic (congestive) heart failure; E87.5 Hyperkalemia; R00.0 Tachycardia, unspecified; H91.3 Deaf nonspeaking, not elsewhere classified; D64.9 Anemia, unspecified; I16.0 Hypertensive urgency; E83.89 Other disorders of mineral metabolism; R93.3 Abnormal findings on diagnostic imaging of other parts of digestive tract; R33.9 Retention of urine, unspecified; I11.0 Hypertensive heart disease with heart failure
CPT/HCPCS: 36415; 36600; 71045; 72158; 72196; 74176; 76775; 76830; 76856; 80048; 80053; 80061; 80307; 81001; 81003; 82043; 82550; 82803; 82962; 83036; 83605; 83690; 83735; 83880; 84100; 84155; 84300; 84439; 84443; 84484; 84703; 85025; 85610; 85730; 87081; 87086; 93005; 93306; 94640; 94664; 96374; 96375; 97110; 97116; 97161; 97530; J0692; J1815; J1940; J2060; J2270; J2405; J3475; J7030